=== PATIENT | male | born 1945 | race Caucasian/White ===

== ENCOUNTER → 2017-10-01 | Outpatient (CLI) | payer MEDICARE ==
[2017-10-01 12:02] LABS: Anion Gap 5 mmol/L; Blood Urea Nitrogen 29 mg/dL (9-20); Carbon Dioxide 30 mmol/L (22-30); Chloride 104 mmol/L (98-107); Non-African American GFR(MDRD) >60 (>60 ml/min/1.73 sqM); Potassium 5.3 mmol/L (3.5-5.1); Sodium 139 mmol/L (137-145)
[2017-10-01 12:52] LABS: CH 30.7; CHCM 32.7; HCT 44.6 % (39.0-53.0); HDW 3.14; HGB 14.7 gm/dL (13.0-17.5); MCH 31.2 pg (25.0-35.0); MCV 94.4 fL (80.0-100.0); Mean Platelet Volume 7.2; RBC 4.72 m/uL (4.30-5.90); WBC 7.2 k/uL (3.8-10.6)
== END | disposition home or self-care (01) ==
LOC: LABPAT 11:14
PROVIDERS: ATTEND Internal Medicine Interventional Cardiology
DX: Z01.812 Encounter for preprocedural laboratory examination (principal); I35.0 Nonrheumatic aortic (valve) stenosis
CPT/HCPCS: 36415; 80051; 82565; 84520; 85027

== ENCOUNTER 2017-10-08 06:27 | Day surgery (SDC) | payer MEDICARE ==
[2017-09-26 14:38] VITALS: BMI 28.7
[~2017-10-08 06:27] MED LIST: ALPRAZolam 0.25 MG TAB PO PRN; ALPRAZolam 0.5 MG TAB PO PRN; ASPIRIN 325 MG TAB PO STA; ATORVASTATIN 80 MG TAB PO STA; NITROGLYCERIN SL TABS 0.4 MG TAB SUBLINGUAL PRN; SODIUM CHLORIDE 0.9% 1,000 ML in EMPTY BAG 1 BAG IV ONE
[2017-10-08] MEDS ORDERED: MIDAZOLAM 2 MG/2 ML VIAL ONE (07:29)
[2017-10-08] MEDS ORDERED: diphenhydrAMINE 50 MG/ML 1 ML VIAL ONE (07:29)
[2017-10-08] MEDS ORDERED: ASPIRIN 81 MG PO ONE (07:38)
[2017-10-08] MEDS ORDERED: ASPIRIN 81 MG ONE (07:40)
[2017-10-08] MEDS ORDERED: diphenhydrAMINE 50 MG/ML 1 ML VIAL IVP ONE (07:40)
[2017-10-08] MEDS: MIDAZOLAM 2 MG/2 ML VIAL IVP ONE ×2 (07:40→07:54)
[2017-10-08] MEDS ORDERED: LIDOCAINE 2% INJ 20 MG/ML SQ ONE (07:48)
[2017-10-08] MEDS ORDERED: NITROGLYCERIN SL TABS 0.4 MG TAB SUBLINGUAL ONE ×2 (08:06→08:10)
[2017-10-08 08:14] LABS: O2 Sat Blood Gas 63.2 %
[2017-10-08 08:16] LABS: O2 Sat Blood Gas 70.4 %
[2017-10-08 08:19] LABS: O2 Sat Blood Gas 93.2 %
[2017-10-08] MEDS ORDERED: IOHEXOL 350 MG/ML (PER ML) 100ML BTL INJ ONE (08:28)
[2017-10-08] MEDS ORDERED: SODIUM CHLORIDE 0.9% 1,000 ML IV SCH (09:00)
[2017-10-08] MEDS ORDERED: NITROGLYCERIN SL TABS 0.4 MG TAB SUBLINGUAL STA (10:04)
--- NOTE | 2017-10-08 10:52 | CC ---
CARDIAC CATHETERIZATION REPORT DATE OF SERVICE: 10/08/2017. PROCEDURE: Right and left heart catheterization and coronary angiography. PERFORMED BY: Dr. Ervin Merritt. CLINICAL INFORMATION: Mr. Antonio Alex is a 72-year-old gentleman with history of hypertension, hyperlipidemia, and aortic stenosis with increasing shortness of breath and worsening gradient noninvasively with a mean gradient of 37 mm mmHg. He was advised coronary angiography. He had a previous cardiac cath and WILBER in 2013, which revealed that the valve area was about nearly 2.0 and did not have significant disease of the right- dominant system. Because of increasing symptoms and objective evidence of increased gradient, he was advised coronary angiography and a WILBER and possibly to cross aortic valve if he could. PROCEDURE NOTE: Under local anesthesia and strict aseptic precautions, a 6-Israeli introducer was placed in the right femoral artery. An 8-Israeli introducer in the right femoral vein. Using a standard balloon tipped catheter, I performed right heart catheterization. Catheter was left in the pulmonary artery. I obtained saturations, hemodynamics and also performed a thermodilution cardiac output. I then performed coronary angiography using standard Chana catheters. I made an attempt to cross the aortic valve with a pigtail catheter but I could not. The sheath was taken out and Angio-Seal device used to secure hemostasis. The venous sheath was taken out and manual compression. The patient was sent to the room in a stable condition. He will have transesophageal echo later on today around noontime. CARDIAC CATHETERIZATION FINDINGS: 1. Right coronary artery: Technically a very dominant vessel has no significant disease and distally bifurcates into a large PDA and a larger PLV and PDA, both of which supply a sizable amount of myocardium. There is no significant disease in the dominant RCA or its branches. 2. Left main coronary artery: Short patent disease-free vessel that bifurcates into LAD and circumflex. Left main itself is free of significant disease. 3. Left anterior descending coronary artery: Good caliber vessel extends along the anterior wall gives off a good-sized septal branch proximally and then 2 small diagonal branches. The second diagonal is actually of fair caliber and distribution. The vessel then runs down all the way to the apex supplying a sizable amount of myocardium. The entire LAD is of a good caliber and good distribution, has minor irregularities but no significant disease is noted. 4. Left posterior circumflex coronary artery: Technically a nondominant vessel that runs laterally, gives off 2 obtuse marginal branches, supplies a fair amount of myocardium. There is no significant disease in the nondominant circumflex system. 5. Left ventriculogram. This was not performed. I could not cross the aortic valve. 6. Right heart catheterization findings: Right atrial pressure was 3 mmHg. Right ventricular pressure was 44/3, the pulmonary arterial pressure was 44/17 with a mean of 27. Pulmonary capillary wedge pressure was 16 mmHg. The thermodilution cardiac output was 5.4 L. The Dom cardiac output was 5.5 L. The PA saturation was 70% and FA saturation was 93%. The RA saturation was 63%. This patient has mild pulmonary hypertension with a normal cardiac output and mildly increased wedge pressure. FINAL IMPRESSION: This patient has mild pulmonary hypertension, normal cardiac output. Aortic valve was not crossed. He has no obstructive CAD. He has a right dominant system and compared to the study from 2014, there is no progression of coronary disease. RECOMMENDATIONS: I will await the results of the transesophageal echo before making recommendations. Patient's PA pressures are slightly increased, but his coronary anatomy has not changed. He has a right dominant system without significant obstructive CAD. Findings were discussed with the patient and and he will be discharged after WILBER and I will see him on Saturday as per his appointment. MMODL / IJN: [id number] /
--- NOTE | 2017-10-08 10:52 | LTR ---
DATE OF SERVICE: 10/08/[address] Manzano: Thank you for the opportunity to partake in the care of Mr. Alex. Please find enclosed my cardiac cath report for your records. As you recall, the gentleman has hypertension, hypercholesterolemia and moderate to severe aortic stenosis. Cardiac cath reveals no significant obstructive coronary artery disease. Filling pressures are slightly elevated. We will check the WILBER and then make further recommendations. Thank you for your referral and please call for questions. With kind personal regards, Sincerely, Moderate conscious sedation time was 48 minutes. MMODL / IJN: [id number] /
[2017-10-08] MEDS ORDERED: IV FLUID CONTINUATION 500 ML IV ONE (11:32)
[2017-10-08] MEDS: BENZOCAINE SPRAY 1 CAN MUCOUS MEM ONE ×3 (11:38→13:23)
[2017-10-08] MEDS ORDERED: fentaNYL (PF) 50 MCG/ML 2 ML AMP IVP ONE (13:20)
[2017-10-08] MEDS ORDERED: MIDAZOLAM 2 MG/2 ML VIAL IVP ONE (13:21)
--- NOTE | 2017-10-08 14:43 | ECHOT ---
TRANSESOPHAGEAL ECHOCARDIOGRAM Mr. Alex is a 72-year-old gentleman who underwent a transesophageal echocardiogram to assess aortic stenosis. Patient was given intravenous sedation with Versed and fentanyl and transesophageal echocardiogram was performed without any complications. Left ventricular chamber is normal in size with moderate degree of left ventricular hypertrophy and normal left ventricular systolic function. The mitral valve morphology is normal. Left atrium is mildly enlarged. Left atrial appendage is normal. There is minimal mitral regurgitation noted. Aortic valve is heavily calcified. Aortic valve area is calculated in the range of 1.4 to 1.5 cm2 suggestive of moderate degree of aortic stenosis. No significant aortic regurgitation is noted. Interatrial septum is intact. There is no evidence of any PFO. Descending thoracic aorta is normal. FINAL IMPRESSION: 1. The aortic valve is heavily calcified but aortic wall area is calculated in the range of 1.4 to 1.5 cm2 suggestive of moderate degree of aortic stenosis. No significant aortic regurgitation is noted. 2. Mitral and tricuspid valve morphology is normal. There is a trace mitral regurgitation noted. Left atrium is mildly enlarged. 3. Interatrial septum is intact. There is no evidence of any patent foramen ovale. 4. Descending thoracic aorta was normal. MMODL / IJN: [id number] /
[2017-10-09 22:55] VITALS: BP 174/76; PULSE 53; RESP 18; TEMP 97.9
== END 2017-10-08 15:01 | disposition home or self-care (01) ==
LOC: CATHCVL 06:27
PROVIDERS: ATTEND Internal Medicine Interventional Cardiology
DX: I27.20 Pulmonary hypertension, unspecified (principal); I08.0 Rheumatic disorders of both mitral and aortic valves; I10 Essential (primary) hypertension; E78.00 Pure hypercholesterolemia, unspecified; Z82.49 Family history of ischemic heart disease and other diseases of the circulatory system; D86.9 Sarcoidosis, unspecified; Z79.82 Long term (current) use of aspirin; Z79.51 Long term (current) use of inhaled steroids; Z79.899 Other long term (current) drug therapy; Z87.891 Personal history of nicotine dependence; Z88.6 Allergy status to analgesic agent; Z88.1 Allergy status to other antibiotic agents; Z88.0 Allergy status to penicillin
CPT/HCPCS: 93312; 93320; 93325; 93456; 85018; 82810; C1760; C1894 ×2; C1769 ×2; J2001; J2250; J1200; Q9967; J3010

== ENCOUNTER → 2017-10-28 | Outpatient (CLI) | payer MEDICARE ==
[2017-10-28 10:39] LABS: Basophils # (A) 0.1 k/uL (0-0.2); Basophils % (A) 1 %; Eosinophils # (A) 0.2 k/uL (0-0.7); Eosinophils % (A) 3 %; HCT 49.2 % (39.0-53.0); Lymphocytes # (A) 1.6 k/uL (1.0-4.8); Lymphocytes % (A) 23 %; MCH 29.9 pg (25.0-35.0); MCHC 32.6 g/dL (31.0-37.0); MCV 91.6 fL (80.0-100.0); Mean Platelet Volume 6.9; Monocytes # (A) 0.5 k/uL (0-1.0); Monocytes % (A) 7 %; Neutrophils # (A) 4.2 k/uL (1.3-7.7); Neutrophils % (A) 64 %; Platelet Count 207 k/uL (150-450); RBC 5.37 m/uL (4.30-5.90); RDW 13.8 % (11.5-15.5); WBC 6.6 k/uL (3.8-10.6)
[2017-10-28 10:51] LABS: ALT 40 U/L (21-72); AST 19 U/L (17-59); Anion Gap 7 mmol/L; Blood Urea Nitrogen 24 mg/dL (9-20); Calcium 10.6 mg/dL (8.4-10.2); Carbon Dioxide 33 mmol/L (22-30); Chloride 103 mmol/L (98-107); Cholesterol 152 mg/dL (<200); Glucose 109 mg/dL (74-99); HDL Cholesterol 52 mg/dL (40-60); LDL Cholesterol,Calculated 73 mg/dL (0-99); Potassium 4.9 mmol/L (3.5-5.1); Sodium 143 mmol/L (137-145); Triglycerides 137 mg/dL (<150)
[2017-10-28 11:06] LABS: T4, Free (Free Thyroxine) 1.12 ng/dL (0.78-2.19)
[2017-10-28 11:20] LABS: PSA Annual Screen 1.29 ng/mL (0.00-4.00)
== END | disposition home or self-care (01) ==
LOC: LABWHC1 10:03
PROVIDERS: ATTEND Internal Medicine Interventional Cardiology
DX: E78.5 Hyperlipidemia, unspecified (principal); I10 Essential (primary) hypertension; Z12.5 Encounter for screening for malignant neoplasm of prostate
CPT/HCPCS: 84439; 80061; 80048; 84443; 84450; 84460; 85025; 36415; G0103

== ENCOUNTER → 2018-11-21 | Outpatient (CLI) | payer MEDICARE ==
--- NOTE | 2018-11-21 15:34 | XR ---
Left hip HISTORY: Left hip pain 2 views of the left hip No comparisons There is mild joint space loss. Alignment and bone mineralization are maintained. No fracture or disl ocation. IMPRESSION: Suspect some mild joint space loss, hip MRI may be of benefit.
== END | disposition home or self-care (01) ==
LOC: RADXRMAIN 13:15
PROVIDERS: ATTEND Family Medicine
DX: M25.552 Pain in left hip (principal)
CPT/HCPCS: 73502

== ENCOUNTER 2018-12-09 07:21 | Day surgery (SDC) | payer MEDICARE ==
[2018-12-04 16:11] VITALS: BMI 30.9
[~2018-12-09 07:21] MED LIST changes: -ALPRAZolam 0.25 MG TAB PO PRN; -ALPRAZolam 0.5 MG TAB PO PRN; -ASPIRIN 325 MG TAB PO STA; -ATORVASTATIN 80 MG TAB PO STA; +LACTATED RINGERS 1,000 ML IV SCH; +LIDOCAINE 1% 20 ML VIAL (10MG/ML) FOR IV START INTRADERMA PRN; -NITROGLYCERIN SL TABS 0.4 MG TAB SUBLINGUAL PRN; -SODIUM CHLORIDE 0.9% 1,000 ML in EMPTY BAG 1 BAG IV ONE
[2018-12-09 07:39] VITALS: TEMP 96.5
[2018-12-09] MEDS ORDERED: LIDOCAINE 1% INJ 10MG/ML (20 ML MDV) ONE (08:24)
[2018-12-09] MEDS ORDERED: PROPOFOL 10 MG/ML 20 ML VIAL IV ONE (08:24)
--- NOTE | 2018-12-09 09:05 | P.PCN ---
Date of Procedure: 12/09/18 Procedure(s) Performed: Procedure: Colonoscopy and polypectomy. Preoperative diagnosis: Screening for neoplasia. Postoperative diagnosis: 1. Diverticulosis with no evidence of acute diverticulitis or strictures. 2. Small sigmoid polyp snared but no large polyps or cancer. Preparation: HalfLytely prep. Sedation: Was provided by anesthesia. Brief clinical history: The patient is 73-year-old male who is scheduled for this evaluation for screening for neoplasia because of history of polyps and family history of colon cancer in his mother and her half brother. The patient has no abdominal complaints, bleeding or anemia. He reports intermittent issues with diarrhea and constipation. His last exam was in 2016. Procedure: With the patient on his left lateral decubitus position and after informed consent and adequate sedation, the perianal area was inspected and it did not show any fissures or fistulas. There were no masses felt on digital rectal examination. The Olympus CFQ 160L video colonoscope was then inserted in the rectum in the usual fashion and advanced to the cecum. The preparation was less than ideal as there was some thick fecal secretions and fecal debris that would not wash off totally. There was a small polyp in the sigmoid which was snared and retrieved by suction, but there were no large polyps or cancer. Multiple diverticular orifices were seen scattered mostly on the left side with some on the right side and around the hepatic flexure but with no evidence of acute diverticulitis or strictures. In the retroflex view in the rectum I noted low-grade internal hemorrhoids but those were not bleeding. Disposition: The patient tolerated the procedure well. Plan: The patient was reassured. Discussed dietary measures. I anticipate repeating this exam in 3-5 years. He will follow up with you as planned.
[2018-12-09 09:17] VITALS: BP 145/81; PULSE 58; RESP 16
== END 2018-12-09 09:41 | disposition home or self-care (01) ==
LOC: ORWHC2ENDO 07:21
DX: Z12.11 Encounter for screening for malignant neoplasm of colon (principal); K57.30 Diverticulosis of large intestine without perforation or abscess without bleeding; D12.5 Benign neoplasm of sigmoid colon; K59.00 Constipation, unspecified; K64.8 Other hemorrhoids; Z80.0 Family history of malignant neoplasm of digestive organs
CPT/HCPCS: 88305; 45385; J2001; J2704

== ENCOUNTER → 2019-12-14 | Outpatient (CLI) | payer MEDICARE ==
[2019-12-14 10:38] LABS: HCT 46.2 % (39.0-53.0); HGB 15.4 gm/dL (13.0-17.5); MCH 30.7 pg (25.0-35.0); MCHC 33.3 g/dL (31.0-37.0); MCV 92.4 fL (80.0-100.0); Mean Platelet Volume 7.7; Platelet Count 237 k/uL (150-450); RDW 14.5 % (11.5-15.5); WBC 10.4 k/uL (3.8-10.6)
[2019-12-14 10:43] LABS: Potassium 4.9 mmol/L (3.5-5.1)
== END ==
LOC: LABPAT 09:17
PROVIDERS: ATTEND Internal Medicine Interventional Cardiology
DX: Z01.818 Encounter for other preprocedural examination (principal); I35.0 Nonrheumatic aortic (valve) stenosis
CPT/HCPCS: 36415; 80051; 82565; 84520; 85027

== ENCOUNTER 2019-12-24 06:49 | Day surgery (SDC) | payer MEDICARE ==
[2019-12-22 14:52] VITALS: BMI 31.2
[~2019-12-24 06:49] MED LIST changes: +ALPRAZolam 0.25 MG TAB PO PRN; +ALPRAZolam 0.5 MG TAB PO PRN; -LACTATED RINGERS 1,000 ML IV SCH; -LIDOCAINE 1% 20 ML VIAL (10MG/ML) FOR IV START INTRADERMA PRN; +NITROGLYCERIN SL TABS 0.4 MG TAB SUBLINGUAL PRN; +SODIUM CHLORIDE 0.9% 1,000 ML in EMPTY BAG 1 BAG IV ONE
[2019-12-24] MEDS ORDERED: ASPIRIN 325 MG TAB PO ONE (07:00)
[2019-12-24] MEDS ORDERED: ATORVASTATIN 80 MG TAB PO ONE (07:00)
[2019-12-24] MEDS ORDERED: SODIUM CHLORIDE 0.9% 1,000 ML IV ONE (07:15)
[2019-12-24 07:40] VITALS: TEMP 98.5
[2019-12-24] MEDS ORDERED: LIDOCAINE 1% INJ 10MG/ML (20 ML MDV) ONE ×2 (07:40→08:33)
[2019-12-24] MEDS ORDERED: HEPARIN SODIUM 1,000 UN/ML (10ML VL) ONE (07:41)
[2019-12-24] MEDS ORDERED: VERAPAMIL 2.5 MG/ML 2 ML AMP ONE (07:41)
[2019-12-24] MEDS ORDERED: amLODIPine 5 MG TAB PO STA (07:48)
[2019-12-24] MEDS ORDERED: NITROGLYCERIN SL TABS 0.4 MG TAB SUBLINGUAL STA (07:49)
[2019-12-24] MEDS ORDERED: amLODIPine 5 MG TAB ONE (07:49)
[2019-12-24] MEDS: MIDAZOLAM 2 MG/2 ML VIAL IV ONE ×2 (07:54→08:07)
[2019-12-24] MEDS ORDERED: amLODIPine 5 MG TAB PO ONE (07:54)
[2019-12-24] MEDS ORDERED: LIDOCAINE 1% INJ 10MG/ML (20 ML MDV) SQ ONE ×4 (08:06→08:35)
[2019-12-24] MEDS: VERAPAMIL SYRINGE (5 MG/10 ML) INTRAARTER ONE ×2 (08:09→08:51)
[2019-12-24] MEDS ORDERED: VERAPAMIL SYRINGE (5 MG/10 ML) INTRAARTER ONE (08:12)
[2019-12-24] MEDS ORDERED: NITROGLYCERIN SL TABS 0.4 MG TAB SUBLINGUAL ONE ×2 (08:17→08:19)
[2019-12-24] MEDS ORDERED: IOPAMIDOL-370 125ML BTL INJ ONE (08:51)
[2019-12-24] MEDS ORDERED: SODIUM CHLORIDE 0.9% 1,000 ML IV SCH (09:00)
--- NOTE | 2019-12-24 09:28 | CC ---
CARDIAC CATHETERIZATION REPORT DATE OF SERVICE: December 24, 2019. PROCEDURE: Coronary angiography. Moderate conscious sedation time was 47 minutes. Patient was administered Versed. Oxygen saturation, hemodynamics and EKG were monitored closely. PERFORMED BY: Dr. Ervin Merritt. CLINICAL INFORMATION: Mr. Alex is a 74-year-old gentleman, history of sarcoidosis, bronchial asthma COPD, past history of smoking who also has moderate to severe aortic stenosis with progressive increase in symptoms of chest pain and shortness of breath with activity. He was advised coronary angiography with the understanding that if aortic valve is severe, he may require a valve replacement. He was scheduled to have a coronary angiography and WILBER today brought in for the procedure electively after due discussion regarding risks, benefits, and options. PROCEDURE NOTE: Under local anesthesia and strict aseptic precautions, a 6-Guyanese introducer was placed in the right radial artery. I was able to place a 6-Guyanese sheath. Multiple attempts were used because of difficulty in advancing the wire. However, I advanced a Glidewire and there was a lot of tortuosity in the axillary and brachial artery area. After gaining access into the ascending aorta with a Glidewire, I switched over to a regular wire with a right Chana catheter. I had absolutely no ability to torque the right catheter because of extreme tortuosity. However, I had a subselective injection of the RCA. I could not advance the left catheter because of extreme tortuosity in the brachiocephalic artery. Therefore I switched over to the femoral approach. Under strict aseptic precautions and local anesthesia, a 6-Guyanese introducer was placed in the right femoral artery. Using standard Chana catheters I performed coronary angiography. I did not make any serious attempt to cross the aortic valve. The sheath was taken out and Angio-Seal device used to secure hemostasis. The radial sheath was taken out and a TR band applied as per protocol. Saturation of the fingers of the right hand was 92%. The patient tolerated the procedure well without complication. He was sent to the room in stable condition. Findings were discussed with the patient and family. CORONARY ANGIOGRAPHY FINDINGS: RIGHT CORONARY ARTERY: This is a technically a very dominant vessel has no significant disease, has minor irregularities. It bifurcates distally into a large PDA and PLV, both of which supply a sizable amount of myocardium. No significant disease is noted in the right coronary artery, which is a super dominant vessel. LEFT MAIN CORONARY ARTERY: This is a short patent disease-free vessel that bifurcates into LAD and circumflex. LEFT ANTERIOR DESCENDING CORONARY ARTERY: Good caliber vessel extends along the anterior wall, gives off septal and diagonal branches runs all the way to the apex. No significant disease is noted in the LAD system. LEFT POSTERIOR CIRCUMFLEX CORONARY ARTERY: Nondominant vessel, fair caliber, gives off 2 large obtuse marginals and then an AV groove branch. There are minor irregularities. No significant disease. FINAL IMPRESSION: This patient has a right dominant system. No significant obstructive coronary artery disease. Left ventriculogram was not performed and aortic valve was not crossed. He will have a WILBER and we will then make a definitive recommendation. RECOMMENDATIONS: No significant CAD. We will await the results of WILBER and then decide regarding aortic valve replacement. Discussed with the patient and . I expect he will be discharged later on today if he remains stable. MMODL / IJN: [id number] /
[2019-12-24] MEDS ORDERED: fentaNYL (PF) 50 MCG/ML 2 ML AMP ONE (11:28)
[2019-12-24] MEDS: BENZOCAINE SPRAY 1 CAN TOPICAL ONE ×2 (11:35→11:40)
[2019-12-24] MEDS ORDERED: IV FLUID CONTINUATION 900 ML IV ONE (11:40)
[2019-12-24] MEDS ORDERED: MIDAZOLAM 2 MG/2 ML VIAL IV ONE ×2 (11:55→11:58)
[2019-12-24] MEDS ORDERED: fentaNYL (PF) 50 MCG/ML 2 ML AMP IV ONE (11:56)
--- NOTE | 2019-12-24 12:41 | ECHOT ---
TRANSESOPHAGEAL ECHOCARDIOGRAM This transesophageal echocardiogram was performed to assess the aortic stenosis. The patient was given intravenous sedation with Versed and fentanyl and transesophageal echocardiogram was performed without any complications. FINDINGS: The left ventricular chamber is normal in size with [id number] degree of left ventricular hypertrophy and normal left ventricular systolic functions. Left atrium is mildly enlarged. Mitral valve morphology is normal. Mild mitral regurgitation is noted. There is no evidence of thrombus in the left atrial appendage. The aortic valve is sclerotic and calcified. It is probably bicuspid and it was difficult to calculate the aortic valve area by planimetry. In the long-axis view, the excursion of the aortic leaflets is significantly reduced and the valve is calcified. There is a moderate degree of aortic regurgitation. Interatrial septum is intact. The descending thoracic aorta shows mild atherosclerotic plaque. FINAL IMPRESSION: 1. The aortic valve is heavily calcified and sclerotic. It is probably bicuspid. It was difficult to calculate the aortic valve area in 60 degree view. In the long- axis view, the excursion of the aortic leaflets is significantly reduced suggestive of severe aortic stenosis. A mean gradient of 40 mmHg was noted by transthoracic echo again suggestive of severe aortic stenosis. There is a moderate degree of aortic regurgitation noted. 2. Left ventricular systolic function is normal. 3. Mild mitral regurgitation is noted. 4. Interatrial septum is intact. 5. There is no evidence of any patent foramen ovale. 6. There is no evidence of thrombus in left atrial appendage. MMODL / IJN: [id number] /
[2019-12-24 14:37] VITALS: RESP 16
[2019-12-24 15:28] VITALS: BP 165/79; PULSE 60
== END 2019-12-24 15:05 | disposition home or self-care (01) ==
LOC: CATHCVL 06:49
PROVIDERS: ATTEND Internal Medicine Interventional Cardiology
DX: I08.0 Rheumatic disorders of both mitral and aortic valves (principal); I77.1 Stricture of artery; R07.9 Chest pain, unspecified; R06.02 Shortness of breath; I10 Essential (primary) hypertension; E78.5 Hyperlipidemia, unspecified; D86.9 Sarcoidosis, unspecified; I49.5 Sick sinus syndrome; J44.9 Chronic obstructive pulmonary disease, unspecified; E78.00 Pure hypercholesterolemia, unspecified; Z87.891 Personal history of nicotine dependence; Z82.49 Family history of ischemic heart disease and other diseases of the circulatory system; Z79.82 Long term (current) use of aspirin; Z79.51 Long term (current) use of inhaled steroids; Z79.899 Other long term (current) drug therapy; Z88.6 Allergy status to analgesic agent; Z88.1 Allergy status to other antibiotic agents; Z88.0 Allergy status to penicillin
CPT/HCPCS: 93312; 93454; C1760; C1769 ×4; C1894 ×2; J2250; J2001; J3010; J1644; Q9967; 93320; 93325

== ENCOUNTER → 2020-02-03 | Outpatient (CLI) | payer MEDICARE ==
[2020-02-03 11:58] LABS: HCT 47.4 % (39.0-53.0); HGB 15.5 gm/dL (13.0-17.5); MCH 30.9 pg (25.0-35.0); MCHC 32.6 g/dL (31.0-37.0); MCV 94.8 fL (80.0-100.0); Mean Platelet Volume 7.4; Platelet Count 186 k/uL (150-450); RDW 14.2 % (11.5-15.5); WBC 7.7 k/uL (3.8-10.6)
[2020-02-03 12:01] LABS: Prothrombin Time 10.1 sec (9.0-12.0)
[2020-02-03 18:40] LABS: African American GFR (CKD) 67.7 (60.0-200.0); Albumin/Globulin Ratio 2.22 (1.60-3.17); Anion Gap 8.4 mmol/L (4.00-12.00); BUN/Creat Ratio 23.33 Ratio (12.00-20.00); Calcium 10.5 mg/dL (8.7-10.3); Carbon Dioxide 32.6 mmol/L (21.6-31.8); Globulin 1.8 g/dL (1.6-3.3); Magnesium 2.1 mg/dL (1.5-2.4); Non-African American GFR(CKD) 58.4 (60.0-200.0); Potassium 4.8 mmol/L (3.5-5.5); Total Bilirubin 0.8 mg/dL (0.3-1.2); Total Protein 5.8 g/dL (6.2-8.2)
== END | disposition home or self-care (01) ==
LOC: LABWHC1 10:32
PROVIDERS: ATTEND Internal Medicine Interventional Cardiology
DX: I35.0 Nonrheumatic aortic (valve) stenosis (principal); I51.9 Heart disease, unspecified
CPT/HCPCS: 36415; 80053; 83735; 83880; 85027; 85610

== ENCOUNTER → 2021-10-03 | Outpatient (CLI) | payer MEDICARE ==
--- NOTE | 2021-10-03 14:10 | XR ---
EXAMINATION TYPE: XR chest 2V DATE OF EXAM: 10/03/2021 COMPARISON: 05/20/2014 HISTORY: Shortness of breath TECHNIQUE: Frontal and lateral views of the chest are obtained. FINDINGS: Scattered senescent parenchymal changes noted. Hyperinflation compatible with COPD. Increased perihilar and basilar interstitial markings could reflect atypical pneumonia. Correlate cli nically. No evidence for atelectasis. Heart size is stable. Mediastinal structures are stable and grossly unremarkable. No evidence for hilar prominence. Degenerative changes dorsal spine. IMPRESSION: 1. Increased perihilar and basilar interstitial markings could reflect atypical pneumonia. Correlate clinically.
== END | disposition home or self-care (01) ==
LOC: RADXRMAIN 13:49
PROVIDERS: ATTEND Family Medicine
DX: R06.02 Shortness of breath (principal)
CPT/HCPCS: 71046

== ENCOUNTER → 2021-10-16 | Outpatient (CLI) | payer MEDICARE | END | disposition home or self-care (01) | LOC: LABWHC1 11:54 | PROVIDERS: ATTEND Family Medicine | DX: Z20.822 Contact with and (suspected) exposure to COVID-19 (principal); R06.00 Dyspnea, unspecified | CPT/HCPCS: U0003; C9803 ==

== ENCOUNTER → 2021-12-08 | Outpatient (CLI) | payer MEDICARE ==
--- NOTE | 2021-12-08 18:33 | CT ---
EXAMINATION TYPE: CT abdomen pelvis w con DATE OF EXAM: 12/08/2021 COMPARISON: Ultrasound dated 10/24/2021 HISTORY: H/O RENAL CYST CT DLP: 1814 mGycm Automated exposure control for dose reduction was used. TECHNIQUE: Helical acquisition of images was performed from the lung bases through the pelvis. CONTRAST: Performed with Oral Contrast and with IV Contrast, patient injected with 80 mL of Isovue 300. FINDINGS: LUNG BASES: Bilateral basal mild fibrotic changes, groundglass opacities and peripheral reticulations . LIVER/GB: No definite hepatic focal lesion. Previous cholecystectomy. PANCREAS: 7 mm pancreatic head hypodensity, possibly artifactual, otherwise unremarkable pancreas. SPLEEN: No significant abnormality is seen. ADRENALS: Diffusely thickened adrenals without definite measurable lesion. KIDNEYS: 8 mm left lower pole cortical renal cyst demonstrating a density of less than 5 Hounsfield u nit in the venous and delayed images consistent with benign cyst. No solid component, calcification o r suspicious feature. Millimetric right renal hypodensities, too small to characterize and possibly r epresenting renal cysts. Questionable 2 mm nonobstructing calculus at the lower pole of the right kid mik. Unremarkable kidneys otherwise. FREE AIR: No free air is visualized. ADENOPATHY: 10 mm lymph node is seen in the gastrohepatic ligament, nonspecific. Scattered bilateral subcentimeter inguinal lymph nodes. No pathologically enlarged lymph nodes in the abdomen or the pel vis otherwise. REPRODUCTIVE ORGANS: Enlarged heterogeneous prostate, please correlate with PSA level. Unremarkable s eminal vesicles. URINARY BLADDER: Distended without definite lesion. OSSEOUS STRUCTURES: Osteopenia. Dextroscoliosis of the thoracolumbar junction. Severe degenerative c hanges of the lower lumbar spine with facet osteoarthropathy. No aggressive bone lesion. BOWEL: Unremarkable nondistended stomach, duodenum and small bowel. Colonic diverticulosis most evid ent involving the sigmoid colon and descending colon. OTHER: Scattered arterial atherosclerotic calcifications. No sizable ascites. Bilateral fat-containin g small inguinal hernias. Fat-containing umbilical hernia with overlying midline anterior abdominal w all skin thickening and subcutaneous fat stranding, please correlate clinically. IMPRESSION: 1. Simple appearing cyst at the lower pole of the left kidney without suspicious feature. Questionabl e 2 mm nonobstructing calculus at the lower pole of the right kidney. 2. Indeterminate hypodensity in the pancreatic head measuring 7 mm. Recommend precautionary follow-up CT scan in 2-3 months for reassessment. 3. Markedly enlarged heterogeneous prostate, please correlate with PSA level. Other incidental findin gs as detailed above.
== END | disposition home or self-care (01) ==
LOC: RADCTMAIN 13:19
PROVIDERS: ATTEND Family Medicine
DX: N28.1 Cyst of kidney, acquired (principal); N40.0 Benign prostatic hyperplasia without lower urinary tract symptoms
CPT/HCPCS: 82565; 84520; 74177; 36415; Q9967

== ENCOUNTER → 2022-01-15 | Outpatient (CLI) | payer MEDICARE ==
[2022-01-15 13:02] LABS: Appearance,Urine Clear (Clear); Bilirubin,Urine Negative (Negative); Blood,Urine Negative (Negative); Color,Urine Yellow; Glucose,Urine (UA) Negative (Negative); Hyaline Casts,Urine 1 /lpf (0-2); Ketones,Urine Negative (Negative); Leukocyte Esterase,Urine Negative (Negative); Nitrite,Urine Negative (Negative); PH, Urine 6.5 (5.0-8.0); Protein,Urine 1+ (Negative); Specific Gravity,Urine 1.008 (1.001-1.035); Urobilinogen,Urine <2.0 mg/dL (<2.0); WBC,Urine 1 /hpf (0-5)
[2022-01-15 18:24] LABS: HCT 49.8 % (39.6-50.0); HGB 15.5 g/dL (13.0-17.0); MCH 29.6 pg (27.0-32.0); MCHC 31.1 g/dL (32.0-37.0); NRBC Per 100 WBC 0 /100 WBCS (0.0-0.0); Platelet Count 210 X 10*3/uL (140-440); RBC 5.24 X 10*6/uL (4.40-5.60); RDW 14.2 % (11.5-14.5); WBC 10.03 X 10*3/uL (4.50-10.00)
[2022-01-15 18:37] LABS: % Iron Saturation 18.79 (15.00-50.00); African American GFR (CKD) 66.1 (60.0-200.0); Albumin 4.2 g/dL (3.8-4.9); Albumin/Globulin Ratio 2.08 (1.60-3.17); Anion Gap 12.7 mmol/L (10.00-18.00); BUN/Creat Ratio 17.44 Ratio (12.00-20.00); Blood Urea Nitrogen 21.1 mg/dL (9.0-27.0); Calcium 10.8 mg/dL (8.7-10.3); Carbon Dioxide 27.3 mmol/L (20.0-27.5); Magnesium 2.4 mg/dL (1.5-2.4); Phosphorus 3.4 mg/dL (2.4-5.1); Total Bilirubin 0.5 mg/dL (0.30-1.20); Total Protein 6.2 g/dL (6.2-8.2); Uric Acid 6.6 mg/dL (3.7-8.7)
[2022-01-15 18:58] LABS: Prostate Specific Antigen 1.3 ng/mL (0.00-6.50)
== END | disposition home or self-care (01) ==
LOC: LABWHC1 10:03
PROVIDERS: ATTEND Internal Medicine
DX: D64.9 Anemia, unspecified (principal); E21.3 Hyperparathyroidism, unspecified; E55.9 Vitamin D deficiency, unspecified; N18.31 Chronic kidney disease, stage 3a; N39.0 Urinary tract infection, site not specified; M10.9 Gout, unspecified; N40.0 Benign prostatic hyperplasia without lower urinary tract symptoms
CPT/HCPCS: 36415; 80053; 81001; 82306; 82728; 83540; 83550; 83735; 83970; 84100; 84153; 84550; 85027

== ENCOUNTER → 2022-01-23 | Outpatient (CLI) | payer MEDICARE ==
--- NOTE | 2022-01-23 14:07 | XR ---
EXAMINATION TYPE: XR chest 2V DATE OF EXAM: 01/23/2022 COMPARISON: 10/03/2021 TECHNIQUE: PA and lateral views submitted. HISTORY: Hemoptysis FINDINGS: Cardiac device is seen is a coarsened interstitium with subsegmental changes at the left lung base. S urgical change overlying the lower heart. Biapical pleural thickening. Hypertrophic and degenerative change of the spine. Suspect COPD. Prominence of the right hilum and suprahilar region. IMPRESSION: 1. COPD correlate for chronic interstitial lung disease. Prominence of the right hilum and suprahilar region. Recommend CT scan exclude mass or adenopathy 2. Basilar atelectasis favored over pneumonia.
== END | disposition home or self-care (01) ==
LOC: RADXRMAIN 13:45
PROVIDERS: ATTEND Internal Medicine
DX: J44.9 Chronic obstructive pulmonary disease, unspecified (principal)
CPT/HCPCS: 71046

== ENCOUNTER → 2022-02-02 | Outpatient (CLI) | payer MEDICARE ==
--- NOTE | 2022-02-02 16:16 | NM ---
EXAMINATION TYPE: NM parathyroid w/spect DATE OF EXAM: 02/02/2022 COMPARISON: NONE HISTORY: Hypercalcemia and kidney stones, E 83.52 TECHNIQUE: Following administration of 26.1 mCi Tc99m Sestamibi. Anterior projection images of the neck and ches t were obtained 10 minutes and 3 hours post injection. SPECT images of the neck and chest were obtai delvin and reconstructed in three axes. FINDINGS: Thyroid tracer washout: Delayed images demonstrate near-complete tracer washout from the thyroid. Parathyroid uptake: None. The two-hour delayed images do not demonstrate any focal abnormal persisten t uptake in the region of the parathyroid glands to suggest parathyroid adenoma. Normal uptake: There is physiological tracer uptake in the salivary glands, and thyroid gland. IMPRESSION: Normal parathyroid imaging study. No evidence for mediastinal uptake to suggest mediastinal parathyro id adenoma
== END | disposition home or self-care (01) ==
LOC: RADNMMAIN 10:46
PROVIDERS: ATTEND Internal Medicine
DX: E83.52 Hypercalcemia (principal)
CPT/HCPCS: 78071; A9500

== ENCOUNTER → 2022-03-15 | Outpatient (CLI) | payer MEDICARE ==
--- NOTE | 2022-03-15 20:10 | CT ---
EXAMINATION TYPE: CT angio chest w con, with no 3-D reconstructions DATE OF EXAM: 03/15/2022 COMPARISON: NONE HISTORY: ABNORMAL BLOOD-GAS LEVEL. SOB and cough up blood CT DLP: 619.30 mGycm. Automated Exposure Control for Dose Reduction was Utilized. CONTRAST: CTA scan of the thorax is performed with IV Contrast, patient injected with 90 mL of Isovue 370. MIP Images are created on CT scanner and reviewed. 3D reconstructed images are created on an User [employer] workstation and reviewed. FINDINGS: AIRWAYS: Unremarkable. PLEURAL SPACES: Negative. LUNGS AND MEDIASTINUM: There is a 6 x 5 x 5 cm right paramidline posterior mediastinal mass with ill- defined margins, associated with 2 cm right anterolateral direct invasion of the T2 vertebral body (n o intraspinal component). This mass abuts and anteriorly displaces the trachea and the esophagus abov e the level of the loretta. The lesion's right lateral margin is ill-defined as it directly invades th e right lung parenchyma. Remainder of the lung shows multifocal bleb formation and scattered nonspecific predominantly linear ill-defined added opacities. There is satisfactory enhancement of the pulmonary artery and its branches; no CT evidence for pulmon nirmala embolism. No acute aortic findings. No cardiomegaly. Coronary calcifications are noted. No perica rdial effusion. OTHER: No additional significant abnormality is seen. 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
== END | disposition home or self-care (01) ==
LOC: RADCTMAIN 17:37
PROVIDERS: ATTEND Family Medicine
DX: R22.2 Localized swelling, mass and lump, trunk (principal); R79.81 Abnormal blood-gas level
CPT/HCPCS: 82565; 84520; 71275; 36415; Q9967

== ENCOUNTER 2022-03-23 05:45 | Day surgery (SDC) | payer MEDICARE ==
[2022-03-21 09:09] VITALS: BMI 29.9
[~2022-03-23 05:45] MED LIST changes: -ALPRAZolam 0.25 MG TAB PO PRN; -ALPRAZolam 0.5 MG TAB PO PRN; +LACTATED RINGERS 1,000 ML IV SCH; +LIDOCAINE 1% (10MG/ML) FOR IV START INTRADERMA PRN; -NITROGLYCERIN SL TABS 0.4 MG TAB SUBLINGUAL PRN; -SODIUM CHLORIDE 0.9% 1,000 ML in EMPTY BAG 1 BAG IV ONE
[2022-03-23 06:39] VITALS: TEMP 98.8
[2022-03-23] MEDS ORDERED: LIDOCAINE 2% INJ 20 MG/ML (2 ML VIAL) ONE (07:06)
[2022-03-23] MEDS ORDERED: PROPOFOL 10 MG/ML 20 ML VIAL IV ONE (07:06)
--- NOTE | 2022-03-23 07:35 | P.PCN ---
Date of Procedure: 03/23/22 Procedure(s) Performed: Brief history: Patient is a pleasant 76-year-old white male scheduled for an elective upper endoscopy as well as colonoscopy as a part of evaluation of GERD/screening for colorectal neoplasia Procedure performed: Esophagogastroduodenoscopy with biopsy Colonoscopy with snare polypectomy Preoperative diagnosis: GERD Screening for colon cancer Anesthesia: MAC Procedure: After informed consent was obtained from the patient was brought into the endoscopy unit and IV sedation was administered by anesthesia under continuous monitoring. Initially upper endoscopy was done. The Olympus GF 160 video endoscope was inserted inserted into the mouth and esophagus intubated without a ny difficulty and was gradually advanced into the stomach and duodenum and carefully examined. The bulb and second part of the duodenum appeared normal. The scope was then withdrawn into the stomach adequately insufflated with air and upon careful examination the antrum had linear EUS of erythema consistent with gastritis. Biopsies were done from this area. The body, cardia and fundus appeared normal. The scope was then withdrawn into the esophagus. The GE junction was located at 45 cm to the incisors. It appeared regular with no erythema erosions or ulcerations. There was a short tongue of Puga's appearing mucosa just proximal to the GE junction which was biopsied. Rest of the esophagus appeared normal. Patient tolerated the procedure well. At this time the patient continued to remain sedation. Initial digital rectal examination was normal. Olympus CF 160 video colonoscope was then inserted into the rectum and gradually advanced to the cecum without any difficulty. Careful examination was performed as the scope was gradually being withdrawn. The prep was excellent. The cecum, ascending colon, appeared normal. In the transverse colon there was a 1 cm flat polyp removed by snare polypectomy. In the descending colon there was a 1 cm polyp removed by snare polypectomy. Scattered sigmoid diverticulosis seen. Rest of the transverse colon, descending colon, si gmoid colon and rectum appeared normal. Retroflexion was performed in the rectum and no lesions were noted. Patient tolerated the procedure well. Impression: 1. 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 Colonoscopy revealed scattered sigmoid diverticulosis, 1 cm flat transverse colon polyp status post polypectomy and 1 cm descending colon polyp status post polypectomy,. Recommendations: Findings of this examination were discussed with the patient as well as family. He was advised to follow with the biopsy results.If the biopsy reveals adenoma he can have a repeat colonoscopy in 3 years.
[2022-03-23 08:03] VITALS: BP 145/75; PULSE 68; RESP 17
== END 2022-03-23 08:32 | disposition home or self-care (01) ==
LOC: ORWHC2ENDO 05:45
PROVIDERS: ATTEND Internal Medicine Gastroenterology
DX: D12.4 Benign neoplasm of descending colon (principal); K57.30 Diverticulosis of large intestine without perforation or abscess without bleeding; K22.70 Barrett's esophagus without dysplasia; K21.00 Gastro-esophageal reflux disease with esophagitis, without bleeding; K29.50 Unspecified chronic gastritis without bleeding; I10 Essential (primary) hypertension; E78.5 Hyperlipidemia, unspecified; Z95.0 Presence of cardiac pacemaker; I35.0 Nonrheumatic aortic (valve) stenosis; Z95.2 Presence of prosthetic heart valve; D86.0 Sarcoidosis of lung; G47.33 Obstructive sleep apnea (adult) (pediatric); Z87.891 Personal history of nicotine dependence; N40.0 Benign prostatic hyperplasia without lower urinary tract symptoms; Z87.442 Personal history of urinary calculi; Z79.01 Long term (current) use of anticoagulants; Z79.899 Other long term (current) drug therapy
CPT/HCPCS: 88305; 45385; 43239; J2704; J2001

== ENCOUNTER → 2022-04-10 | Outpatient (CLI) | payer MEDICARE ==
[2022-04-10 09:58] LABS: Appearance,Urine Clear (Clear); Bilirubin,Urine Negative (Negative); Blood,Urine Negative (Negative); Color,Urine Light Yellow; Glucose,Urine (UA) Negative (Negative); Ketones,Urine Negative (Negative); Leukocyte Esterase,Urine Negative (Negative); Nitrite,Urine Negative (Negative); PH, Urine 6.5 (5.0-8.0); Protein,Urine Trace (Negative); Specific Gravity,Urine 1.005 (1.001-1.035); Urobilinogen,Urine <2.0 mg/dL (<2.0)
[2022-04-10 10:41] LABS: Basophils # (A) 0.08 X 10*3/uL (0.00-0.10); Basophils % (A) 0.5 %; Eosinophils # (A) 0.12 X 10*3/uL (0.04-0.35); Eosinophils % (A) 0.8 %; HGB 11.7 g/dL (13.0-17.0); Immature Grans, Automated 0.7 %; Lymphocytes # (A) 0.67 X 10*3/uL (0.90-5.00); Lymphocytes % (A) 4.3 %; MCH 28.7 pg (27.0-32.0); MCHC 30.8 g/dL (32.0-37.0); MCV 93.1 fL (80.0-97.0); Mean Platelet Volume 9.6 fL (9.5-12.2); Monocytes # (A) 0.98 X 10*3/uL (0.20-1.00); Monocytes % (A) 6.2 %; NRBC Per 100 WBC 0 /100 WBCS (0.0-0.0); Neutrophils # (A) 13.75 X 10*3/uL (1.80-7.70); Neutrophils % (A) 87.5 %; Platelet Count 251 X 10*3/uL (140-440); RBC 4.08 X 10*6/uL (4.40-5.60); RDW 15.3 % (11.5-14.5); WBC 15.71 X 10*3/uL (4.50-10.00)
[2022-04-10 10:53] LABS: % Iron Saturation 15.19 (15.00-50.00); African American GFR (CKD) 60.6 (60.0-200.0); Albumin 3.3 g/dL (3.8-4.9); Albumin/Globulin Ratio 1.32 (1.60-3.17); Anion Gap 10.1 mmol/L (10.00-18.00); Blood Urea Nitrogen 20.8 mg/dL (9.0-27.0); Calcium 10.4 mg/dL (8.7-10.3); Carbon Dioxide 27.9 mmol/L (20.0-27.5); Globulin 2.5 g/dL (1.6-3.3); Non-African American GFR(CKD) 52.3 (60.0-200.0); Potassium 4.5 mmol/L (3.5-5.5); Total Bilirubin 0.8 mg/dL (0.30-1.20); Total Protein 5.8 g/dL (6.2-8.2); Uric Acid 7.3 mg/dL (3.7-8.7)
== END | disposition home or self-care (01) ==
LOC: LABWHC1 07:37
PROVIDERS: ATTEND Internal Medicine
DX: D64.9 Anemia, unspecified (principal); E55.9 Vitamin D deficiency, unspecified; M10.9 Gout, unspecified; N18.31 Chronic kidney disease, stage 3a; N39.0 Urinary tract infection, site not specified; N25.81 Secondary hyperparathyroidism of renal origin; R80.9 Proteinuria, unspecified
CPT/HCPCS: 36415; 80053; 81003; 82043; 82306; 82570; 82728; 83540; 83550; 83735; 83970; 84100; 84550; 85025

== ENCOUNTER → 2022-04-13 | Outpatient (CLI) | payer MEDICARE ==
--- NOTE | 2022-04-16 06:40 | PE ---
EXAMINATION TYPE: PET CT fusion skull to thigh DATE OF EXAM: 04/13/2022 COMPARISON: Most recent CTA chest March 15, 2022 and older studies HISTORY: Solitary pulmonary nodule, abnormal CT TECHNIQUE: Following the intravenous administration of 13.1 mCi of F-18 FDG, whole body images are p erformed from the skull base to the midthigh. Images are reviewed on the computer in the coronal, ax ial, and sagittal planes. Reconstructed rotating images are created on independent workstation and r eviewed on the computer. A localization and attenuation correction CT is performed in conjunction w ith the PET scan. Blood glucose level is 98. SCAN: Initial Scan FINDINGS: Slightly suboptimal secondary to patient's large body habitus. SKULL BASE AND NECK: Mild uptake posterior hypopharynx at the level of the false vocal cords is nons pecific, max SUV is 4.03 on axial image 58 series 3. No additional abnormal hypermetabolic adenopathy. CHEST, MEDIASTINUM, AND HILAR REGION: Background moderate underlying emphysematous change is redemons trated. Persistent 6.1 x 4.5 cm superior mediastinal mass causing anterior tracheal displacement inva ding the anterior mid thoracic vertebra has abnormal hypermetabolic uptake, max SUV is 15.72 on axial image 83. No additional areas of abnormal hypermetabolic uptake in the thorax. ABDOMEN AND PELVIS: No adrenal masses are seen. No areas of abnormal hypermetabolic uptake. Normal ex cretion. OSSEOUS STRUCTURES: No additional areas of abnormal hypermetabolic uptake. OTHER CT: Heterogeneous slightly prominent thyroid gland redemonstrated. Persistent cardiomegaly with multi lead pacemaker. Persistent stent graft at the aortic root along with coronary artery calcifica tions. There is small to tiny right pleural effusion on current study. Persistent focal groundglass o pacity and organizing consolidation in the medial right upper lobe. Correlate for acute infectious pr ocess. Prominent pulmonary arteries consistent with underlying pulmonary hypertension redemonstrated. Cholecystectomy clips redemonstrated. Osseous structures are demineralized. IMPRESSION: Abnormal hypermetabolic uptake in the destructive mediastinal mass consistent with neopla sm. Nonspecific subcentimeter hypermetabolic focus near level of the larynx. Consider direct visualiz ation to exclude neoplasm. No additional areas of abnormal hypermetabolic uptake identified.
== END | disposition home or self-care (01) ==
LOC: RADXRMAIN 08:29
PROVIDERS: ATTEND Internal Medicine Critical Care Medicine
DX: R91.8 Other nonspecific abnormal finding of lung field (principal); R93.7 Abnormal findings on diagnostic imaging of other parts of musculoskeletal system
CPT/HCPCS: 78815; A9552

== ENCOUNTER 2022-04-25 12:41 | Inpatient (IN) | payer MEDICARE ==
[2022-04-25] MEDS ORDERED: HYDROmorphone 0.5 MG/0.5 ML SYRINGE IVP STA (13:55)
--- NOTE | 2022-04-25 14:04 | ED ---
General Adult HPI - General Chief complaint: Weakness Stated complaint: SOB, Weakness Time Seen by Provider: 04/25/22 13:27 Source: patient, EMS, RN notes reviewed, old records reviewed Mode of arrival: EMS Limitations: physical limitation - History of Present Illness Initial comments: This is a 76-year-old male who presents emergency Department stating he was recently diagnosed with lung cancer and he is going to be having a bronchoscopy tomorrow to have further evaluated. Patient comes in today because over the last few weeks become weaker and weaker and today he was unable to stand or get out of bed. Patient states he also has chronic pain he said his chest and his back and he is been placed on a fentanyl patch and OxyContin for that. Patient also states she's been coughing up blood for 4 months and they believe is related to the cancer and that is why he is scheduled bronchoscopy tomorrow with Dr. Napier. Patient's only new complaint is that he is too weak to get around orders ambulate. Patient states she cannot go back home at this because his is unable to take care of him. Patient denies any fever chills or cough per patient denies any new chest pain difficulty breathing shortness of breath. Patient denies any abdominal pain patient denies nausea vomiting diarrhea. - Related Data Home Medications Medication Instructions Recorded Confirmed Budesonide-Formot 160-4.5 Mcg 2 puff INHALATION RT-BID 10/08/17 04/25/22 [Symbicort 160-4.5 Mcg Inhaler] amLODIPine BESYLATE 5 mg PO DAILY 12/04/18 04/25/22 Turmeric Root Extract [Turmeric] 500 mg PO DAILY 12/22/19 04/25/22 Apixaban [Eliquis] 5 mg PO BID 02/26/22 04/25/22 Atorvastatin Calcium [Lipitor] 40 mg PO HS 02/26/22 04/25/22 Metoprolol Succinate [Toprol XL] 50 mg PO DAILY 02/26/22 04/25/22 Omeprazole 20 mg PO BID 02/26/22 04/25/22 [place] Concentrate 1 dose PO DAILY PRN 02/26/22 04/25/22 Torsemide [Demadex] 20 mg PO DAILY 02/26/22 04/25/22 Albuterol Inhaler [Ventolin Hfa 1 - 2 puff INHALATION RT-Q6H PRN 04/24/22 04/25/22 Inhaler] Lactulose 10 gm PO DAILY 04/24/22 04/25/22 fentaNYL [Duragesic 37.5 MCG/HR] 1 patch TRANSDERM Q72H 04/24/22 04/25/22 oxyCODONE-APAP 10-325MG [Percocet 1 tab PO Q6HR 04/24/22 04/25/22 10-325 mg] Acetaminophen Tab [Tylenol Tab] 1,000 mg PO Q6H PRN 04/25/22 04/25/22 Previous Rx's Medication Instructions Recorded Losartan Potassium [Cozaar] 50 mg PO DAILY 30 Days #15 tab 02/27/22 Allergies Allergy/AdvReac Type Severity Reaction Status Date / Time amoxicillin trihydrate Allergy Rash/Hives Verified 04/25/22 17:30 [From Augmentin] clindamycin Allergy Rash/Hives Verified 04/25/22 17:30 ibuprofen Allergy Rash/Hives Verified 04/25/22 17:30 potassium clavulanate Allergy Rash/Hives Verified 04/25/22 17:30 [From Augmentin] ragweed pollen AdvReac SINUS Verified 04/25/22 17:30 PROBLEMS Review of Systems ROS Statement: Those systems with pertinent positive or pertinent negative responses have been documented in the HPI. ROS Other: All systems not noted in ROS Statement are negative. Past Medical History Past Medical History: Asthma, Cancer, Chest Pain / Angina, GERD/Reflux, Hearing Disorder / Deafness, Hyperlipidemia, Hypertension, Osteoarthritis (OA), Prostate Disorder, Renal Disease, Respiratory Disorder Additional Past Medical History / Comment(s): SKIN CA LT ARM. HEART MURMUR, hx AORTIC STENOSIS. Varicose Veins. 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 Colonoscopy. NECK GLAND BIOPSY. BRONCH, LUNG biopsy. TVAR aortic valve replacement 2019, skin cancer removed left arm, Past Anesthesia/Blood Transfusion Reactions: No Reported Reaction Type of Cardiac Device: Permanent Pacemaker Device Placement Date:: 2019 [employer] Past Psychological History: No Psychological Hx Reported Smoking Status: Former smoker Past Alcohol Use History: None Reported Past Drug Use History: None Reported - Past Family History Sister(s) Family Medical History: Deep Vein Thrombosis (DVT) Additional Family Medical History / Comment(s): . Mother Family Medical History: Cancer Additional Family Medical History / Comment(s): BRAIN CA, COLON CA General Exam - General Exam Comments Initial Comments: GENERAL: Patient is well-developed and well-nourished. Patient is nontoxic and well- hydrated and is in mild distress. ENT: Neck is soft and supple. No significant lymphadenopathy is noted. Oropharynx is clear. Moist mucous membranes. Neck has full range of motion without eliciting any pain. EYES: The sclera were anicteric and conjunctiva were pink and moist. Extraocular movements were intact and pupils were equal round and reactive to light. Eyelids were unremarkable. PULMONARY: Unlabored respirations. Good breath sounds bilaterally. No audible rales rhonchi or wheezing was noted. CARDIOVASCULAR: There is a regular rate and rhythm without any murmurs gallops or rubs. ABDOMEN: Soft and nontender with normal bowel sounds. SKIN: Skin is clear with no lesions or rashes and otherwise unremarkable. NEUROLOGIC: Patient is alert and oriented x3. Cranial nerves II through XII are grossly intact. Motor and sensory are also intact. Normal speech, volume and content. Symmetrical smile. MUSCULOSKELETAL: Patient's able to move all 4 extremities however his legs appear to be weak but equally weak no focal deficit noted. Patient has 2+ edema bilaterally. LYMPHATICS: No significant lymphadenopathy is noted PSYCHIATRIC: Normal psychiatric evaluation. Limitations: physical limitation Course Vital Signs 04/25/22 04/25/22 12:46 15:43 Temperature 97.2 F L 97.7 F Pulse Rate 73 68 Respiratory 16 16 Rate Blood Pressure 97/55 115/50 O2 Sat by Pulse 95 98 Oximetry Medical Decision Making - Medical Decision Making EKG shows paced rhythm at 79 bpm QRS is 100 a 70 Q-T intervals 43 QTC is 518. Multilobar pneumonia I saw the patient Rocephin and Zithromax. I spoke with [facility] agreed to admit the patient admitted the patient wrote admitting orders. - Lab Data Result diagrams: 04/25/22 14:07 07/20/22 14:07 Lab Results 04/25/22 04/25/22 04/25/22 Range/Units 14:07 14:07 14:07 WBC 23.0 H (3.8-10.6) k/uL RBC 4.07 L (4.30-5.90) m/uL Hgb 12.0 L (13.0-17.5) gm/dL Hct 37.2 L (39.0-53.0) % MCV 91.3 (80.0-100.0) fL MCH 29.6 (25.0-35.0) pg MCHC 32.4 (31.0-37.0) g/dL RDW 15.0 (11.5-15.5) % Plt Count 268 (150-450) k/uL MPV 7.2 Neutrophils % 94 % Lymphocytes % 2 % Monocytes % 3 % Eosinophils % 0 % Basophils % 0 % Neutrophils # 21.5 H (1.3-7.7) k/uL Lymphocytes # 0.5 L (1.0-4.8) k/uL Monocytes # 0.7 (0-1.0) k/uL Eosinophils # 0.0 (0-0.7) k/uL Basophils # 0.0 (0-0.2) k/uL Hypochromasia Slight Poikilocytosis Slight PT 12.1 H (9.0-12.0) sec INR 1.1 (<1.2) APTT 30.2 H (22.0-30.0) sec Sodium (137-145) mmol/L Potassium (3.5-5.1) mmol/L Chloride (98-107) mmol/L Carbon Dioxide (22-30) mmol/L Anion Gap mmol/L BUN (9-20) mg/dL Creatinine (0.66-1.25) mg/dL Est GFR (CKD-EPI)AfAm (>60 ml/min/1.73 sqM) Est GFR (CKD-EPI)NonAf (>60 ml/min/1.73 sqM) Glucose (74-99) mg/dL Plasma Lactic Acid Juan Carlos (0.7-2.0) mmol/L Calcium (8.4-10.2) mg/dL Magnesium (1.6-2.3) mg/dL Total Bilirubin (0.2-1.3) mg/dL AST (17-59) U/L ALT (4-49) U/L Alkaline Phosphatase (38-126) U/L Troponin I (0.000-0.034) ng/mL NT-Pro-B Natriuret Pep pg/mL Total Protein (6.3-8.2) g/dL Albumin (3.5-5.0) g/dL Urine Color Yellow Urine Appearance Clear (Clear) Urine pH 5.0 (5.0-8.0) Ur Specific Douglas 1.020 (1.001-1.035) Urine Protein Trace H (Negative) Urine Glucose (UA) Negative (Negative) Urine Ketones Negative (Negative) Urine Blood Small H (Negative) Urine Nitrite Negative (Negative) Urine Bilirubin Negative (Negative) Urine Urobilinogen 2.0 (<2.0) mg/dL Ur Leukocyte Esterase Negative (Negative) Urine RBC 12 H (0-5) /hpf Urine WBC 1 (0-5) /hpf Urine Bacteria Rare H (None) /hpf Hyaline Casts 1 (0-2) /lpf Urine Mucus Rare H (None) /hpf 04/25/22 04/25/22 04/25/22 Range/Units 14:07 14:07 14:07 WBC (3.8-10.6) k/uL RBC (4.30-5.90) m/uL Hgb (13.0-17.5) gm/dL Hct (39.0-53.0) % MCV (80.0-100.0) fL MCH (25.0-35.0) pg MCHC (31.0-37.0) g/dL RDW (11.5-15.5) % Plt Count (150-450) k/uL MPV Neutrophils % % Lymphocytes % % Monocytes % % Eosinophils % % Basophils % % Neutrophils # (1.3-7.7) k/uL Lymphocytes # (1.0-4.8) k/uL Monocytes # (0-1.0) k/uL Eosinophils # (0-0.7) k/uL Basophils # (0-0.2) k/uL Hypochromasia Poikilocytosis PT (9.0-12.0) sec INR (<1.2) APTT (22.0-30.0) sec Sodium 131 L (137-145) mmol/L Potassium 4.1 (3.5-5.1) mmol/L Chloride 92 L (98-107) mmol/L Carbon Dioxide 33 H (22-30) mmol/L Anion Gap 6 mmol/L BUN 35 H (9-20) mg/dL Creatinine 1.72 H (0.66-1.25) mg/dL Est GFR (CKD-EPI)AfAm 43 (>60 ml/min/1.73 sqM) Est GFR (CKD-EPI)NonAf 37 (>60 ml/min/1.73 sqM) Glucose 132 H (74-99) mg/dL Plasma Lactic Acid Juan Carlos 1.2 (0.7-2.0) mmol/L Calcium 10.0 (8.4-10.2) mg/dL Magnesium 1.8 (1.6-2.3) mg/dL Total Bilirubin 0.9 (0.2-1.3) mg/dL AST 16 L (17-59) U/L ALT 11 (4-49) U/L Alkaline Phosphatase 101 (38-126) U/L Troponin I 0.119 H* (0.000-0.034) ng/mL NT-Pro-B Natriuret Pep pg/mL Total Protein 4.9 L (6.3-8.2) g/dL Albumin 2.7 L (3.5-5.0) g/dL Urine Color Urine Appearance (Clear) Urine pH (5.0-8.0) Ur Specific Douglas (1.001-1.035) Urine Protein (Negative) Urine Glucose (UA) (Negative) Urine Ketones (Negative) Urine Blood (Negative) Urine Nitrite (Negative) Urine Bilirubin (Negative) Urine Urobilinogen (<2.0) mg/dL Ur Leukocyte Esterase (Negative) Urine RBC (0-5) /hpf Urine WBC (0-5) /hpf Urine Bacteria (None) /hpf Hyaline Casts (0-2) /lpf Urine Mucus (None) /hpf 04/25/22 Range/Units 14:07 WBC (3.8-10.6) k/uL RBC (4.30-5.90) m/uL Hgb (13.0-17.5) gm/dL Hct (39.0-53.0) % MCV (80.0-100.0) fL MCH (25.0-35.0) pg MCHC (31.0-37.0) g/dL RDW (11.5-15.5) % Plt Count (150-450) k/uL MPV Neutrophils % % Lymphocytes % % Monocytes % % Eosinophils % % Basophils % % Neutrophils # (1.3-7.7) k/uL Lymphocytes # (1.0-4.8) k/uL Monocytes # (0-1.0) k/uL Eosinophils # (0-0.7) k/uL Basophils # (0-0.2) k/uL Hypochromasia Poikilocytosis PT (9.0-12.0) sec INR (<1.2) APTT (22.0-30.0) sec Sodium (137-145) mmol/L Potassium (3.5-5.1) mmol/L Chloride (98-107) mmol/L Carbon Dioxide (22-30) mmol/L Anion Gap mmol/L BUN (9-20) mg/dL Creatinine (0.66-1.25) mg/dL Est GFR (CKD-EPI)AfAm (>60 ml/min/1.73 sqM) Est GFR (CKD-EPI)NonAf (>60 ml/min/1.73 sqM) Glucose (74-99) mg/dL Plasma Lactic Acid Juan Carlos (0.7-2.0) mmol/L Calcium (8.4-10.2) mg/dL Magnesium (1.6-2.3) mg/dL Total Bilirubin (0.2-1.3) mg/dL AST (17-59) U/L ALT (4-49) U/L Alkaline Phosphatase (38-126) U/L Troponin I (0.000-0.034) ng/mL NT-Pro-B Natriuret Pep 6640 pg/mL Total Protein (6.3-8.2) g/dL Albumin (3.5-5.0) g/dL Urine Color Urine Appearance (Clear) Urine pH (5.0-8.0) Ur Specific Douglas (1.001-1.035) Urine Protein (Negative) Urine Glucose (UA) (Negative) Urine Ketones (Negative) Urine Blood (Negative) Urine Nitrite (Negative) Urine Bilirubin (Negative) Urine Urobilinogen (<2.0) mg/dL Ur Leukocyte Esterase (Negative) Urine RBC (0-5) /hpf Urine WBC (0-5) /hpf Urine Bacteria (None) /hpf Hyaline Casts (0-2) /lpf Urine Mucus (None) /hpf Disposition Clinical Impression: Lung cancer, Pneumonia, Elevated troponin Disposition: ADMITTED IP TO THIS HOSP Referrals: Vladislav Manzano DO [Primary Care Provider] - 1-2 days Time of Disposition: 17:15
[2022-04-25 14:43] LABS: Basophils % (A) 0 %; Eosinophils % (A) 0 %; HCT 37.2 % (39.0-53.0); Hypochromasia Slight; Lymphocytes # (A) 0.5 k/uL (1.0-4.8); Lymphocytes % (A) 2 %; MCH 29.6 pg (25.0-35.0); MCHC 32.4 g/dL (31.0-37.0); MCV 91.3 fL (80.0-100.0); Mean Platelet Volume 7.2; Monocytes # (A) 0.7 k/uL (0-1.0); Monocytes % (A) 3 %; Neutrophils # (A) 21.5 k/uL (1.3-7.7); Neutrophils % (A) 94 %; Platelet Count 268 k/uL (150-450); Poikilocytosis Slight; RBC 4.07 m/uL (4.30-5.90)
[2022-04-25 14:46] LABS: Albumin 2.7 g/dL (3.5-5.0); Magnesium 1.8 mg/dL (1.6-2.3); Potassium 4.1 mmol/L (3.5-5.1); Total Bilirubin 0.9 mg/dL (0.2-1.3); Total Protein 4.9 g/dL (6.3-8.2)
[2022-04-25 15:10] LABS: INR 1.1 (<1.2); Partial Thromboplastin Time 30.2 sec (22.0-30.0); Prothrombin Time 12.1 sec (9.0-12.0)
--- NOTE | 2022-04-25 15:19 | XR ---
EXAMINATION TYPE: XR chest 2V DATE OF EXAM: 04/25/2022 COMPARISON: 01/23/2022 HISTORY: Shortness of breath TECHNIQUE: Frontal and lateral views of the chest are obtained. FINDINGS: Scattered senescent parenchymal changes noted. Hyperinflation compatible with COPD. Patchy perihilar and basilar infiltrates. Correlate for developing pneumonia. Heart size is stable. Mediastinal structures are stable and grossly unremarkable. No evidence for hilar prominence. Degenerative changes dorsal spine. IMPRESSION: 1. No evidence for acute pulmonary disease.
[2022-04-25 16:41] LABS: Appearance,Urine Clear (Clear); Bacteria,Urine Rare /hpf; Bilirubin,Urine Negative (Negative); Blood,Urine Small (Negative); Color,Urine Yellow; Glucose,Urine (UA) Negative (Negative); Hyaline Casts,Urine 1 /lpf (0-2); Ketones,Urine Negative (Negative); Leukocyte Esterase,Urine Negative (Negative); Mucus,Urine Rare /hpf; Nitrite,Urine Negative (Negative); Protein,Urine Trace (Negative); RBC,Urine 12 /hpf (0-5); WBC,Urine 1 /hpf (0-5)
[2022-04-25] MEDS ORDERED: AZITHROMYCIN 500 MG in SODIUM CHLORIDE 0.9% 250 ML IVPB STA ×2 (17:05→17:47)
[2022-04-25] MEDS ORDERED: PNEUMONIA PROTOCOL UTILIZED 1 EACH MISC PO PRN (17:47)
[2022-04-25] MEDS ORDERED: ACETAMINOPHEN TAB 325 MG TAB PO STA (17:55)
[2022-04-25] MEDS: oxyCODONE-APAP 10-325MG 1 EACH TAB PO PRN (20:42)
[2022-04-25] MEDS ORDERED: MORPHINE SULFATE 4 MG/ML SYRINGE IVP STA (22:26)
[2022-04-25] MEDS ORDERED: MORPHINE SULFATE 4 MG/ML SYRINGE IVP PRN (22:26)
--- NOTE | 2022-04-26 07:44 | XR ---
EXAMINATION TYPE: XR chest 2V DATE OF EXAM: 04/26/2022 COMPARISON: 04/25/2022 TECHNIQUE: PA and lateral views submitted. HISTORY: Cough FINDINGS: Cardiac device is seen and there is underlying COPD with patchy bilateral infiltrates stable relative to the prior exam. Underlying mass in the left hilum not excluded. No sizable pleural effusion. No o bvious pneumothorax given limitation of technique. Soft tissue fullness right paratracheal region. IMPRESSION: 1. Patchy bilateral infiltrate. Marked soft tissue prominence right paratracheal region likely corres ponds the previous CT described mass.
[2022-04-26] MEDS ORDERED: IPRATROPIUM-ALBUTEROL 3 ML NEB INHALATION PRN (10:35)
[2022-04-26] MEDS ORDERED: ACETAMINOPHEN TAB 500 MG TAB PO PRN (11:55)
[2022-04-26] MEDS ORDERED: FLUMAZENIL 0.1 MG/ML 5 ML VIAL IVP ONE (12:00)
[2022-04-26] MEDS ORDERED: MIDAZOLAM 2 MG/2 ML VIAL ONE (12:00)
[2022-04-26] MEDS ORDERED: fentaNYL (PF) 50 MCG/ML 2 ML AMP ONE (12:00)
[2022-04-26] MEDS ORDERED: ONDANSETRON 4 MG/2 ML VIAL ONE (12:00)
[2022-04-26] MEDS ORDERED: GLYCOPYRROLATE 0.2 MG/ML 2 ML VIAL ONE (12:00)
[2022-04-26] MEDS ORDERED: DEXAMETHASONE SOD PHOSPHATE 10 MG/ML 1 ML VIAL ONE (12:00)
[2022-04-26] MEDS ORDERED: FUROSEMIDE 10 MG/ML 4 ML VIAL ONE (12:00)
[2022-04-26] MEDS ORDERED: NALOXONE 0.4 MG/ML 1 ML VIAL ONE (12:00)
[2022-04-26] MEDS ORDERED: NEOSTIGMINE 1 MG/ML 10 ML VIAL ONE (12:00)
[2022-04-26] MEDS ORDERED: SODIUM CHLORIDE 0.9% 1,000 ML BAG ONE (12:00)
[2022-04-26] MEDS ORDERED: SUCCINYLCHOLINE CHLORIDE 200 MG/10 ML VIAL IV ONE (12:00)
[2022-04-26] MEDS ORDERED: SODIUM CHLORIDE 0.9% 500 ML BAG ONE (12:00)
[2022-04-26] MEDS ORDERED: SUGAMMADEX SODIUM 200 MG/2 ML SDV IV ONE (12:00)
[2022-04-26] MEDS ORDERED: LIDOCAINE 2% INJ 20 MG/ML (2 ML VIAL) ONE (12:00)
[2022-04-26] MEDS ORDERED: PROPOFOL 10 MG/ML 20 ML VIAL IV ONE (12:00)
[2022-04-26] MEDS ORDERED: ROCURONIUM 10 MG/ML (5 ML VIAL) IV ONE (12:00)
[2022-04-26] MEDS: IPRATROPIUM-ALBUTEROL 3 ML NEB INHALATION SCH ×3 (12:02→20:13)
--- NOTE | 2022-04-26 12:10 | P.CNPUL ---
History of Present Illness Consult date: 04/26/22 History of present illness: [facility] [address], [place] [address] Pulmonology - Consult Note Patient Name: Antonio Alex Date of : 1945 Patient Status: Surgical Day Care Attending Provider: Mane Owens Date: 04/26/22 10:26 Initialization Date: 04/26/22 10:26 History of Present Illness Consult date: 04/26/22 Reason for consult: lung mass History of present illness: 76-year-old male patient, presented to the emergency feeling quite weak and debilitated. The patient was becoming weaker, more somnolent and he was having ongoing issues with hemoptysis. Note that the patient was noted to have a lung mass and the patient was supposed to have a outpatient bronchoscopy today. The patient ended up checking himself to the hospital and he was admitted accordingly. The patient is known to have a remote history of question sarcoidosis. He is known to have COPD. Is a known ex-smoker. The patient had a CAT scan of the chest that was done on 03/16/2022. A CAT scan was done and the patient was coughing of blood and he was having pain in his mid upper back/posterior chest area. The patient was found to have a 6 x 5 x 5 cm right paramedline posterior mediastinal mass which was ill-defined in terms of its margin and was associated with a 2 cm right anterolateral direct invasion of the T2 vertebral body. The mass was abutting and anterior displacing the trachea. A PET scan was done and the patient was found to have intense metabolic uptake within the destructive mediastinal mass consistent with neoplasm. Note that the patient also has heart disease. The patient undergone a previous TAVR procedure for severe aortic stenosis. The patient was also given a pacemaker following the procedure and this procedure was done back in 2019. As chronic stage III kidney disease. At this point in time, the patient is coming comfortable. No cervical shortness of breath. He is on 3 L of oxygen nasal cannula with a pulse ox of 98% and a chest x-ray was done today showed patchy by the pulmonary infilt rates with marked soft tissue prominence in the right paratracheal region consistent with a mediastinal mass. The patient's white cell count was at 23 with a hemoglobin of 12, normal correlation profile, creatinine of 1.7 with a mean of 35. ProBNP level was 606 140 with a minimal troponin leak of 0.119. EKG was showing a paced rhythm. Review of Systems Constitutional: Reports daytime sleepiness, Reports fatigue, Reports weakness, Reports weight loss Eyes: denies as per HPI, denies blurred vision, denies bulging eye, denies dec reased vision, denies diplopia, denies discharge, denies dry eye, denies irritation, denies itching, denies pain, denies photophobia, denies loss of peripheral vision, denies loss of vision, denies tunnel vision/blind spots Ears: deny: decreased hearing, ear discharge, earache, tinnitus Ears, nose, mouth and throat: Reports as per HPI Breasts: absent: as per HPI, gynecomastia Cardiovascular: Reports decreased exercise tolerance, Reports dyspnea on exertion Respiratory: Reports cough, Reports dyspnea, Reports hemoptysis Gastrointestinal: Reports as per HPI Genitourinary: Reports as per HPI Musculoskeletal: Reports as per HPI, Reports limitation of motion Musculoskeletal: absent: ankle pain, ankle stiffness, ankle swelling, as per HPI, elbow pain, elbow stiffness, elbow swelling, foot pain, foot stiffness, foot swelling, hand pain, hand stiffness, hand swelling, hip pain, hip stiffness, hip swelling, knee pain, knee stiffness, knee swelling, shoulder pain, shoulder stiffness, shoulder swelling, wrist pain, wrist stiffness, wrist swelling Integumentary: Reports as per HPI Neurological: Reports as per HPI Psychiatric: Reports as per HPI Endocrine: Reports as per HPI Hematologic/Lymphatic: Reports as per HPI Allergic/Immunologic: Reports as per HPI Past Medical History Past Medical History: Asthma, Cancer, Chest Pain / Angina, GERD/Reflux, Hearing Disorder / Deafness, Hyperlipidemia, Hypertension, Osteoarthritis (OA), Prostate Disorder, Renal Disease, Respiratory Disorder Additional Past Medical History / Comment(s): Medastinal mass, posterior- superior, 6x5x5 cm with direct invasion of T2. COPD, SKIN CA LT ARM., AORTIC STENOSIS and a previous TAVR-2020, pacemaker insertion, Varicose Veins. Hx Sarcoidosis, back pain, hiatal hernia, constipation, 'spot on pancreas", BPH, chronic stage III kidney disease, HTN, hyperlipidemia, History of Any Multi-Drug Resistant Organisms: MRSA Date of last positivie culture/infection: 2009 MDRO Source:: sinus Past Surgical History: Cardiac Valve Replacement, Cholecystectomy, Heart Catheterization, Pacemaker, Prostate Surgery Additional Past Surgical History / Comment(s): Septoplasty. Colonoscopy. NECK GLAND BIOPSY. BRONCH, LUNG biopsy. 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 Mother Family Medical History: Cancer Additional Family Medical History / Comment(s): BRAIN CA, COLON CA Medications and Allergies Home Medications Medication Instructions Recorded Confirmed Type Budesonide-Formot 160-4.5 Mcg 2 puff INHALATION RT-BID 10/08/17 04/25/22 History [Symbicort 160-4.5 Mcg Inhaler] amLODIPine BESYLATE 5 mg PO DAILY 12/04/18 04/25/22 History Turmeric Root Extract [Turmeric] 500 mg PO DAILY 12/22/19 04/25/22 History Apixaban [Eliquis] 5 mg PO BID 02/26/22 04/25/22 History Atorvastatin Calcium [Lipitor] 40 mg PO HS 02/26/22 04/25/22 History Metoprolol Succinate [Toprol XL] 50 mg PO DAILY 02/26/22 04/25/22 History Omeprazole 20 mg PO BID 02/26/22 04/25/22 History Tart Smith Concentrate 1 dose PO DAILY PRN 02/26/22 04/25/22 History Torsemide [Demadex] 20 mg PO DAILY 02/26/22 04/25/22 History Losartan Potassium [Cozaar] 50 mg PO DAILY 30 Days #15 tab 02/27/22 04/25/22 Rx Albuterol Inhaler [Ventolin Hfa 1 - 2 puff INHALATION RT-Q6H PRN 04/24/22 04/25/22 History Inhaler] Lactulose 10 gm PO DAILY 04/24/22 04/25/22 History fentaNYL [Duragesic 37.5 MCG/HR] 1 patch TRANSDERM Q72H 04/24/22 04/25/22 History oxyCODONE-APAP 10-325MG [Percocet 1 tab PO Q6HR 04/24/22 04/25/22 History 10-325 mg] Acetaminophen Tab [Tylenol Tab] 1,000 mg PO Q6H PRN 04/25/22 04/25/22 History Allergies Allergy/AdvReac Type Severity Reaction Status Date / Time amoxicillin trihydrate Allergy Rash/Hives Verified 04/25/22 17:30 [From Augmentin] clindamycin Allergy Rash/Hives Verified 04/25/22 17:30 ibuprofen Allergy Rash/Hives Verified 04/25/22 17:30 potassium clavulanate Allergy Rash/Hives Verified 04/25/22 17:30 [From Augmentin] ragweed pollen AdvReac SINUS Verified 04/25/22 17:30 PROBLEMS Physical Exam Gen. appearance the patient is coming comfortable no acute distress, breathing is nonlabored on 3 L O2 nasal cannula Head exam was generally normal. There was no scleral icterus or corneal arcus. Mucous membranes were moist. Neck was supple and without jugular venous distension, thyromegaly, or carotid b ruits. Carotids were easily palpable bilaterally. There was no adenopathy. Lungs sounds are diminished and patient has scattered rhonchi and scattered expiratory wheezes without the lung his bilaterally and the patient has a pacemaker pocket over the left anterior chest area. Cardiac exam revealed the PMI to be normally situated and sized. The rhythm was regular and no extrasystoles were noted during several minutes of auscultation. The first and second heart sounds were normal and physiologic splitting of the second heart sound was noted. There was a systolic ejection murmur grade 3/6 in the precordium, rubs, clicks, or gallops. Abdominal exam revealed normal bowel sounds. The abdomen was soft, non-tender, and without masses, organomegaly, or appreciable enlargement of the abdominal aorta. Examination of the extremities revealed easily palpable radial, femoral and pedal pulses. There was no cyanosis, clubbing or edema. Examination of the skin revealed no evidence of significant rashes, suspicious appearing nevi or other concerning lesions. Results - Diagnostic Findings Chest x-ray: image reviewed Assessment and Plan Plan: Hemoptysis Mediastinal mass. The patient is a 6 x 5 x 5 cm posterior superior mediastinal mass, with direct anterolateral invasion of the T2 vertebral body, highly active on PET scan and highly suspicious for tracheal wall invasion posteriorly. This is most likely an underlying malignancy Back pain secondary to above COPD History aortic valve stenosis with a previous TAVR and a previous pacemaker insertion. Echocardiogram from February 2022 showed preserved LV, bioprosthetic aortic valve which is in place and no significant leaks Chronic stage III kidney disease History of sarcoidosis which is currently inactive in stable Troponin leak, nonspecific Acute leukocytosis Plan Proceed with bronchoscopy, airway inspection, tracheal wall inspection. Highly suspected tracheal wall invasion from the posterior mediastinal mass. Patient was agreeable to procedure. We'll continue to follow make further recommendations based on his progress. Past Medical History Past Medical History: Asthma, Cancer, Chest Pain / Angina, GERD/Reflux, Hearing Disorder / Deafness, Hyperlipidemia, Hypertension, Osteoarthritis (OA), Prostate Disorder, Renal Disease, Respiratory Disorder Additional Past Medical History / Comment(s): SKIN CA LT ARM. HEART MURMUR, hx AORTIC STENOSIS. Varicose Veins. 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 Colonoscopy. NECK GLAND BIOPSY. BRONCH, LUNG biopsy. TVAR aortic valve replacement 2019, skin cancer removed left arm, Past Anesthesia/Blood Transfusion Reactions: No Reported Reaction Type of Cardiac Device: Permanent Pacemaker Device Placement Date:: 2019 [employer] Past Psychological History: No Psychological Hx Reported Smoking Status: Former smoker Past Alcohol Use History: None Reported Additional Past Alcohol Use History / Comment(s): STARTED SMOKING AT AGE 16, QUIT IN 1973, SMOKED 3PPD Past Drug Use History: None Reported - Past Family History Sister(s) Family Medical History: Deep Vein Thrombosis (DVT) Additional Family Medical History / Comment(s): . Mother Family Medical History: Cancer Additional Family Medical History / Comment(s): BRAIN CA, COLON CA Medications and Allergies Home Medications Medication Instructions Recorded Confirmed Type Budesonide-Formot 160-4.5 Mcg 2 puff INHALATION RT-BID 10/08/17 04/25/22 History [Symbicort 160-4.5 Mcg Inhaler] amLODIPine BESYLATE 5 mg PO DAILY 12/04/18 04/25/22 History Turmeric Root Extract [Turmeric] 500 mg PO DAILY 12/22/19 04/25/22 History Apixaban [Eliquis] 5 mg PO BID 02/26/22 04/25/22 History Atorvastatin Calcium [Lipitor] 40 mg PO HS 02/26/22 04/25/22 History Metoprolol Succinate [Toprol XL] 50 mg PO DAILY 02/26/22 04/25/22 History Omeprazole 20 mg PO BID 02/26/22 04/25/22 History Tart [place] Concentrate 1 dose PO DAILY PRN 02/26/22 04/25/22 History Torsemide [Demadex] 20 mg PO DAILY 02/26/22 04/25/22 History Losartan Potassium [Cozaar] 50 mg PO DAILY 30 Days #15 tab 02/27/22 04/25/22 Rx Albuterol Inhaler [Ventolin Hfa 1 - 2 puff INHALATION RT-Q6H PRN 04/24/22 04/25/22 History Inhaler] Lactulose 10 gm PO DAILY 04/24/22 04/25/22 History fentaNYL [Duragesic 37.5 MCG/HR] 1 patch TRANSDERM Q72H 04/24/22 04/25/22 History oxyCODONE-APAP 10-325MG [Percocet 1 tab PO Q6HR 04/24/22 04/25/22 History 10-325 mg] Acetaminophen Tab [Tylenol Tab] 1,000 mg PO Q6H PRN 04/25/22 04/25/22 History Allergies Allergy/AdvReac Type Severity Reaction Status Date / Time amoxicillin trihydrate Allergy Rash/Hives Verified 04/25/22 17:30 [From Augmentin] clindamycin Allergy Rash/Hives Verified 04/25/22 17:30 ibuprofen Allergy Rash/Hives Verified 04/25/22 17:30 potassium clavulanate Allergy Rash/Hives Verified 04/25/22 17:30 [From Augmentin] ragweed pollen AdvReac SINUS Verified 04/25/22 17:30 PROBLEMS Physical Exam Vitals: Vital Signs Temp Pulse Pulse Resp BP BP Pulse Ox 04/26/22 08:00 98.1 F 86 20 113/56 98 04/26/22 04:00 98.6 F 85 22 115/60 94 L 04/25/22 23:03 97.9 F 92 19 121/62 92 L 04/25/22 21:33 99.0 F 72 19 112/63 95 04/25/22 20:06 70 20 115/64 93 L 04/25/22 18:09 73 16 113/58 93 L 04/25/22 15:43 97.7 F 68 16 115/50 98 04/25/22 12:46 97.2 F L 73 16 97/55 95 Intake and Output 04/25/22 04/26/22 04/26/22 22:59 06:59 14:59 Output Total 425 200 Balance -425 -200 Output: Urine 425 200 Other: Voiding Method Indwelling Catheter Weight 106.141 kg Results - Laboratory Findings CBC and BMP: 04/25/22 14:07 04/25/22 14:07 PT/INR, D-dimer PT 12.1 sec (9.0-12.0) H 04/25/22 14:07 INR 1.1 (<1.2) 04/25/22 14:07 Abnormal lab findings: Abnormal Labs 04/25/22 04/25/22 04/25/22 14:07 14:07 14:07 WBC 23.0 H RBC 4.07 L Hgb 12.0 L Hct 37.2 L Neutrophils # 21.5 H Lymphocytes # 0.5 L PT 12.1 H APTT 30.2 H Sodium Chloride Carbon Dioxide BUN Creatinine Glucose AST Troponin I Total Protein Albumin Urine Protein Trace H Urine Blood Small H Urine RBC 12 H Urine Bacteria Rare H Urine Mucus Rare H 04/25/22 04/25/22 14:07 14:07 WBC RBC Hgb Hct Neutrophils # Lymphocytes # PT APTT Sodium 131 L Chloride 92 L Carbon Dioxide 33 H BUN 35 H Creatinine 1.72 H Glucose 132 H AST 16 L Troponin I 0.119 H* Total Protein 4.9 L Albumin 2.7 L Urine Protein Urine Blood Urine RBC Urine Bacteria Urine Mucus
--- NOTE | 2022-04-26 13:27 | P.PCN ---
Date of Procedure: 04/26/22 Preoperative Diagnosis: Superior mediastinal mass Postoperative Diagnosis: Superior mediastinal mass Procedure(s) Performed: EBUS bronchoscopy and transbronchial needle aspirate of superior mediastinal mass Anesthesia: MAGALI Surgeon: Hannah العراقي Heavy Machinery Operator #1: Clary Castro Estimated Blood Loss (ml): 0 Pathology: other Condition: stable Disposition: floor Operative Findings: This procedure was done and a endoscopy room. A consent was obtained. After achieving adequate sedation, the patient was intubated by [employer] and placed on a mechanical ventilator. Following that, the flexible bronchoscope was introduced and the entire trachea was examined and visualized. As his trach was being visualized, the EEG was pulled all the way up to the subglottic area just next to the cricoid. There was some minimal swelling/irregularities along the poste rior wall of the trachea in its midportion, however there was not the bronchial tumors noted. There was probably some mass effect also in the same area and the membranous trachea was looking to be compressed and the mucosa was swollen and folded. The airway was completed. Bilateral mainstem bronchi, right upper lobeBronchus, bronchus intermedius, right middle lobe and right lower lobe bronchus along with a based and segments on the right and then examination of the left mainstem bronchus, left upper and left lower lobe rhonchi and the various 8 segments on the left was visualized. There was some looseness for secretions were identified and there was no evidence of any endobronchial tumors or lesions or abnormalities. Therapeutic airway suctioning was done. Following that EBUS bronchoscopy was performed. The entire trachea was identified. The aortic arch was identified. Following that, looking through the posterior wall of the trachea, the posterior superior mediastinal mass was identified. This was a large 5 x 6 cm mass seen on EBUS. Transbronchial needle aspirate of the posterior mediastinal mass was done under EBUS guidance. Rapid on-site pathologic evaluation was done. Adequacy of the samples were confirmed. Following that, a total of 5 passes was done using EBUS guidance. Bronchoscope was removed. Flexible bronchoscope was again introduced and therapeutic it was suctioning was done. The procedure was completed. He was terminated. Bronchus, was removed. The patient was extubated and transferred to recovery in stable condition. Awaiting final pathology results.
[2022-04-26 14:17] LABS: Basophils % (A) 0 %; Eosinophils # (A) 0.1 k/uL (0-0.7); Eosinophils % (A) 0 %; HCT 41.7 % (39.0-53.0); HGB 12.9 gm/dL (13.0-17.5); Hypochromasia Marked; Lymphocytes # (A) 0.6 k/uL (1.0-4.8); Lymphocytes % (A) 3 %; MCH 29.4 pg (25.0-35.0); MCHC 31.1 g/dL (31.0-37.0); MCV 94.8 fL (80.0-100.0); Mean Platelet Volume 6.9; Monocytes # (A) 0.8 k/uL (0-1.0); Monocytes % (A) 4 %; Neutrophils # (A) 17.3 k/uL (1.3-7.7); Neutrophils % (A) 91 %; Platelet Count 300 k/uL (150-450); Poikilocytosis Slight
[2022-04-26 14:48] LABS: Calcium 10.1 mg/dL (8.4-10.2); Potassium 4.2 mmol/L (3.5-5.1)
[2022-04-26] MEDS: LACTULOSE 20 GM/30 ML CUP PO SCH (16:29)
[2022-04-26] MEDS: METOPROLOL SUCCINATE (ER) 50 MG TAB.ER.24H PO SCH (17:34)
[2022-04-26] MEDS: PANTOPRAZOLE 40 MG TABLET PO SCH (17:34)
[2022-04-26] MEDS: AZITHROMYCIN 500 MG TAB PO SCH (17:34)
[2022-04-26] MEDS: ATORVASTATIN 40 MG TAB PO SCH (20:03)
[2022-04-26] MEDS: SYMBICORT 160-4.5 MCG INHALER INHALATION SCH (20:16)
--- NOTE | 2022-04-26 23:33 | P.HPIM ---
History of Present Illness H&P Date: 04/26/22 Chief Complaint: Generalized weakness Patient is a 76-year-old male with a long history of out, hypertension, hyperlipidemia, hearing Glusartel/deafness, obstructives, aortic stenosis and previous history of TAVR in 2019, history of permanent pacemaker placement, history of sarcoidosis and CKD stage III and other mild medical problems presents ER with complaints of generalized weakness and unable to stand up get out of bed. Patient is also having chronic pain in his chest and back and also using fentanyl patch and OxyContin at home. He has been having hemoptysis for the past 4 months and also scheduled for bronchoscopy due to recently diagnosed lung mass. Patient had CT chest done on 03/16/2022. Patient is also having loss of weight. No complaints of chest pain or worsening shortness of breath. On admission blood pressures 97/55 and pulse 73 respiration 16 and pulse ox 95% on 4 L oxygen via nasal cannula. Chest x-ray showed no evidence for acute pulmonary disease. EKG showed electronic ventricular paced rhythm. Chest x-ray showed patchy bilateral infiltrate. Marker soft tissue prominence right paratracheal region likely corresponds to the previous CT described mass. Laboratory pressure WBC 23.0 hemoglobin 12.0 and platelets 268 INR 1.1 Sodium 131 potassium 4.1 chloride 92 bicarb 33 BUN 35 and creatinine 1.72 Troponin 0.119 and proBNP 6640 and albumin 2.7 Urinalysis negative for infection Coronavirus PCR not detected. Review of Systems Constitutional: Patient denies any fever or chills . Generalized weakness. Abdomen: Patient denied any nausea or vomiting or abd. pain Cardiovascular: Patient denies any chest pain or short of breath no palpitations. Respiratory: patient denied any cough is from production. No shortness of breath Neurologic: Patient denied any numbness or tingling headache. Musculoskeletal: Patient denies any complaints of joint swelling or deformity. Skin: Negative Psychiatric: Negative Endocrine: No heat or cold intolerance. No recent weight gain. Genitourinary: No dysuria or hematuria. All other 14 point ROS negative except the above Past Medical History Past Medical History: Asthma, Cancer, Chest Pain / Angina, GERD/Reflux, Hearing Disorder / Deafness, Hyperlipidemia, Hypertension, Osteoarthritis (OA), Prostate Disorder, Renal Disease, Respiratory Disorder Additional Past Medical History / Comment(s): SKIN CA LT ARM. HEART MURMUR, hx AORTIC STENOSIS. Varicose Veins. Hx Sarcoidosis, back pain, tumor in lung, h iatal hernia, constipation, 'spot on pancreas", enlarged prostate, "stage III kidney disease", "gland by jaw" History of Any Multi-Drug Resistant Organisms: MRSA Date of last positivie culture/infection: 2009 MDRO Source:: sinus Past Surgical History: Cardiac Valve Replacement, Cholecystectomy, Heart Catheterization, Pacemaker, Prostate Surgery Additional Past Surgical History / Comment(s): Septoplasty. Colonoscopy. NECK GLAND BIOPSY. BRONCH, LUNG biopsy. TVAR aortic valve replacement 2019, skin cancer removed left arm, Past Anesthesia/Blood Transfusion Reactions: No Reported Reaction Type of Cardiac Device: Permanent Pacemaker Device Placement Date:: 2019 [employer] Past Psychological History: No Psychological Hx Reported Smoking Status: Former smoker Past Alcohol Use History: None Reported Additional Past Alcohol Use History / Comment(s): STARTED SMOKING AT AGE 16, QUIT IN 1973, SMOKED 3PPD Past Drug Use History: None Reported - Past Family History Sister(s) Family Medical History: Deep Vein Thrombosis (DVT) Additional Family Medical History / Comment(s): . Mother Family Medical History: Cancer Additional Family Medical History / Comment(s): BRAIN CA, COLON CA Medications and Allergies Home Medications Medication Instructions Recorded Confirmed Type Budesonide-Formot 160-4.5 Mcg 2 puff INHALATION RT-BID 10/08/17 04/25/22 History [Symbicort 160-4.5 Mcg Inhaler] amLODIPine BESYLATE 5 mg PO DAILY 12/04/18 04/25/22 History Turmeric Root Extract [Turmeric] 500 mg PO DAILY 12/22/19 04/25/22 History Apixaban [Eliquis] 5 mg PO BID 02/26/22 04/25/22 History Atorvastatin Calcium [Lipitor] 40 mg PO HS 02/26/22 04/25/22 History Metoprolol Succinate [Toprol XL] 50 mg PO DAILY 02/26/22 04/25/22 History Omeprazole 20 mg PO BID 02/26/22 04/25/22 History [place] Concentrate 1 dose PO DAILY PRN 02/26/22 04/25/22 History Torsemide [Demadex] 20 mg PO DAILY 02/26/22 04/25/22 History Losartan Potassium [Cozaar] 50 mg PO DAILY 30 Days #15 tab 02/27/22 04/25/22 Rx Albuterol Inhaler [Ventolin Hfa 1 - 2 puff INHALATION RT-Q6H PRN 04/24/2204/25 History Inhaler] Lactulose 10 gm PO DAILY 04/24/22 04/25/22 History fentaNYL [Duragesic 37.5 MCG/HR] 1 patch TRANSDERM Q72H 04/24/22 04/25/22 History oxyCODONE-APAP 10-325MG [Percocet 1 tab PO Q6HR 04/24/22 04/25/22 History 10-325 mg] Acetaminophen Tab [Tylenol Tab] 1,000 mg PO Q6H PRN 04/25/22 04/25/22 History Allergies Allergy/AdvReac Type Severity Reaction Status Date / Time amoxicillin trihydrate Allergy Rash/Hives Verified 04/25/22 17:30 [From Augmentin] clindamycin Allergy Rash/Hives Verified 04/25/22 17:30 ibuprofen Allergy Rash/Hives Verified 04/25/22 17:30 potassium clavulanate Allergy Rash/Hives Verified 04/25/22 17:30 [From Augmentin] ragweed pollen AdvReac SINUS Verified 04/25/22 17:30 PROBLEMS Physical Exam Vitals: Vital Signs Temp Pulse Pulse Resp BP BP Pulse Ox 04/26/22 08:00 98.1 F 86 20 113/56 98 04/26/22 04:00 98.6 F 85 22 115/60 94 L 04/25/22 23:03 97.9 F 92 19 121/62 92 L 04/25/22 21:33 99.0 F 72 19 112/63 95 04/25/22 20:06 70 20 115/64 93 L 04/25/22 18:09 73 16 113/58 93 L 04/25/22 15:43 97.7 F 68 16 115/50 98 04/25/22 12:46 97.2 F L 73 16 97/55 95 Intake and Output 04/25/22 04/26/22 04/26/22 22:59 06:59 14:59 Output Total 425 200 Balance -425 -200 Output: Urine 425 200 Other: Voiding Method Indwelling Catheter Weight 106.141 kg PHYSICAL EXAMINATION: Patient is lying in the bed comfortably, no acute distress, awake alert and oriented.. HEENT: Normocephalic. Neck is supple. Pupils reactive. Nostrils clear. Oral cavity is moist. Neck reveals no JVD, carotid bruits, or thyromegaly. CHEST EXAMINATION: Trachea is central. Symmetrical expansion. Lung teresa clear to auscultation and percussion. CARDIAC: Normal S1, S2 with no gallops. No murmurs ABDOMEN: Soft. Bowel sounds present. Nontender. No organomegaly. No abdominal bruits. Extremities: reveal no edema. No clubbing or cyanosis Neurologically awake, alert, oriented x3 with well-coordinated movements. No focal deficits noted Skin: No rash or skin lesions. Psychiatric: Coperative. Nonsuicidal, anxious. Musculoskeletal: No joint swelling or deformity. Normal range of motion. Results CBC & Chem 7: 04/26/22 14:03 04/26/22 14:03 Labs: Abnormal Lab Results - Last 24 Hours (Table) 04/25/22 04/25/22 04/25/22 Range/Units 14:07 14:07 14:07 WBC 23.0 H (3.8-10.6) k/uL RBC 4.07 L (4.30-5.90) m/uL Hgb 12.0 L (13.0-17.5) gm/dL Hct 37.2 L (39.0-53.0) % Neutrophils # 21.5 H (1.3-7.7) k/uL Lymphocytes # 0.5 L (1.0-4.8) k/uL PT 12.1 H (9.0-12.0) sec APTT 30.2 H (22.0-30.0) sec Sodium (137-145) mmol/L Chloride (98-107) mmol/L Carbon Dioxide (22-30) mmol/L BUN (9-20) mg/dL Creatinine (0.66-1.25) mg/dL Glucose (74-99) mg/dL AST (17-59) U/L Troponin I (0.000-0.034) ng/mL Total Protein (6.3-8.2) g/dL Albumin (3.5-5.0) g/dL Urine Protein Trace H (Negative) Urine Blood Small H (Negative) Urine RBC 12 H (0-5) /hpf Urine Bacteria Rare H (None) /hpf Urine Mucus Rare H (None) /hpf 07/20/22 07/20/22 Range/Units 14:07 14:07 WBC (3.8-10.6) k/uL RBC (4.30-5.90) m/uL Hgb (13.0-17.5) gm/dL Hct (39.0-53.0) % Neutrophils # (1.3-7.7) k/uL Lymphocytes # (1.0-4.8) k/uL PT (9.0-12.0) sec APTT (22.0-30.0) sec Sodium 131 L (137-145) mmol/L Chloride 92 L (98-107) mmol/L Carbon Dioxide 33 H (22-30) mmol/L BUN 35 H (9-20) mg/dL Creatinine 1.72 H (0.66-1.25) mg/dL Glucose 132 H (74-99) mg/dL AST 16 L (17-59) U/L Troponin I 0.119 H* (0.000-0.034) ng/mL Total Protein 4.9 L (6.3-8.2) g/dL Albumin 2.7 L (3.5-5.0) g/dL Urine Protein (Negative) Urine Blood (Negative) Urine RBC (0-5) /hpf Urine Bacteria (None) /hpf Urine Mucus (None) /hpf Microbiology - Last 24 Hours (Table) 04/25/22 18:05 Blood Culture - Final Blood 04/25/22 18:02 Blood Culture - Final Blood 04/25/22 20:31 Gram Stain - Preliminary Sputum Sputum Culture - Preliminary Thrombosis Risk Factor Assmnt - DVT/VTE Prophylaxis DVT/VTE Prophylaxis: Pharmacologic Prophylaxis ordered - Choose All That Apply Any of the Below Risk Factors Present?: Yes Each Factor Represents 1 point: Abnormal pulmonary function (COPD) Each Risk Factor Represents 3 Points: Age 75 years or older Thrombosis Risk Factor Assessment Total Risk Factor Score: 4 Thrombosis Risk Factor Assessment Level: Moderate Risk Assessment and Plan Assessment: 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 Recent history of hemoptysis Hypovolemic hyponatremia Acute kidney injury likely prerenal with CKD stage III Troponin leak leukocytosis COPD not in exacerbation Chronic back pain History of aortic stenosis status post TAVR in 2019 History of sarcoidosis DVT prophylaxis with heparin subcu Plan: Patient will be oxygen supplementation and antibiotics in the form of ceftriaxone azithromycin. Pulmonary is planning for bronchoscopy today. Continue with DuoNebs. Current pain management and home medications including blood pressure medications. Currently on fentanyl patch and Percocet 10. Follow closely. Prognosis guarded at this time. Time with Patient: Greater than 30
[2022-04-27] MEDS: PANTOPRAZOLE 40 MG TABLET PO SCH (06:31)
[2022-04-27] MEDS: SYMBICORT 160-4.5 MCG INHALER INHALATION SCH ×2 (08:04→19:41)
[2022-04-27] MEDS: IPRATROPIUM-ALBUTEROL 3 ML NEB INHALATION SCH ×4 (08:04→19:41)
[2022-04-27 08:57] LABS: Potassium 4.5 mmol/L (3.5-5.1)
[2022-04-27 09:25] LABS: Basophils % (A) 0 %; Eosinophils % (A) 0 %; HGB 11.8 gm/dL (13.0-17.5); Hypochromasia Marked; Lymphocytes # (A) 0.5 k/uL (1.0-4.8); Lymphocytes % (A) 3 %; MCH 28.4 pg (25.0-35.0); MCHC 30.3 g/dL (31.0-37.0); MCV 93.5 fL (80.0-100.0); Mean Platelet Volume 7.2; Monocytes # (A) 0.8 k/uL (0-1.0); Monocytes % (A) 5 %; Neutrophils # (A) 15.6 k/uL (1.3-7.7); Neutrophils % (A) 92 %; Platelet Count 247 k/uL (150-450); RBC 4.17 m/uL (4.30-5.90); RDW 14.8 % (11.5-15.5)
[2022-04-27] MEDS: LACTULOSE 20 GM/30 ML CUP PO SCH (09:34)
[2022-04-27] MEDS: amLODIPine 5 MG TAB PO SCH (09:34)
[2022-04-27] MEDS: AZITHROMYCIN 500 MG TAB PO SCH (09:34)
[2022-04-27] MEDS: METOPROLOL SUCCINATE (ER) 50 MG TAB.ER.24H PO SCH (09:34)
[2022-04-27] MEDS: oxyCODONE-APAP 10-325MG 1 EACH TAB PO PRN ×2 (09:39→19:45)
[2022-04-27] MEDS ORDERED: FUROSEMIDE 10 MG/ML 4 ML VIAL IV STA (11:02)
[2022-04-27] MEDS: methylPREDNISolone SOD SUCCI 125 MG/2 ML VIAL IV SCH ×3 (12:20→23:29)
--- NOTE | 2022-04-27 14:45 | P.PN ---
Subjective Progress Note Date: 04/27/22 76-year-old male patient, presented to the emergency feeling quite weak and debilitated. The patient was becoming weaker, more somnolent and he was having ongoing issues with hemoptysis. Note that the patient was noted to have a lung mass and the patient was supposed to have a outpatient bronchoscopy today. The patient ended up checking himself to the hospital and he was admitted accordingly. The patient is known to have a remote history of question sarcoidosis. He is known to have COPD. Is a known ex-smoker. The patient had a CAT scan of the chest that was done on 03/16/2022. A CAT scan was done and the patient was coughing of blood and he was having pain in his mid upper back/posterior chest area. The patient was found to have a 6 x 5 x 5 cm right paramedline posterior mediastinal mass which was ill-defined in terms of its margin and was associated with a 2 cm right anterolateral direct invasion of the T2 vertebral body. The mass was abutting and anterior displacing the trachea. A PET scan was done and the patient was found to have intense metabolic uptake within the destructive mediastinal mass consistent with neoplasm. Note that the patient also has heart disease. The patient undergone a previous TAVR procedure for severe aortic stenosis. The patient was also given a pacemaker following the procedure and this procedure was done back in 2019. As chronic stage III ki dney disease. At this point in time, the patient is coming comfortable. No cervical shortness of breath. He is on 3 L of oxygen nasal cannula with a pulse ox of 98% and a chest x-ray was done today showed patchy by the pulmonary infiltrates with marked soft tissue prominence in the right paratracheal region consistent with a mediastinal mass. The patient's white cell count was at 23 with a hemoglobin of 12, normal correlation profile, creatinine of 1.7 with a mean of 35. ProBNP level was 606 140 with a minimal troponin leak of 0.119. EKG was showing a paced rhythm. The patient is seen today 04/27/2022 in follow-up on the selective care unit. He is currently awake and alert in no acute distress. He has a loose nonproductive cough. Maintaining saturations in the mid 90s on 3 L/m per nasal cannula. He has some complaints of upper extremity weakness. Blood culture is positive for gram-negative bacilli sputum culture pending. White count 17.0. Hemoglobin 11.8. Sodium 133. Potassium 4.5. BUN 4. Creatinine 1.47. Glucose 150. He did undergo EBUS bronchoscopy with FNA of the superior mediastinal mass. Pathology is pending. He remains on DuoNeb inhalations, Symbicort, a ntibiotics in the form of ceftriaxone. Objective - Vital Signs Vital signs: Vital Signs Temp 97.7 F 04/27/22 08:00 Pulse 60 04/27/22 14:00 Resp 18 04/27/22 14:00 BP 106/60 04/27/22 12:00 Pulse Ox 95 04/27/22 12:00 FiO2 50 04/26/22 16:30 Intake & Output 04/26/22 04/27/22 04/27/22 18:59 06:59 18:59 Intake Total 900 Output Total 200 250 150 Balance 700 -250 -150 Intake: IV 900 Output: Urine 200 250 150 Other: Voiding Method Indwelling Catheter - Exam Gen. appearance: A pleasant 76-year-old male patient, on 3 L nasal cannula, the patient is comfortable no acute distress, is complaining of some upper extremity weakness Head exam was generally normal. There was no scleral icterus or corneal arcus. Mucous membranes were moist. Neck was supple and without jugular venous distension, thyromegaly, or carotid bruits. Carotids were easily palpable bilaterally. There was no adenopathy. Lungs sounds are diminished and patient has scattered rhonchi and scattered expiratory wheezes without the lung his bilaterally and the patient has a pacemaker pocket over the left anterior chest area. Cardiac exam revealed the PMI to be normally situated and sized. The rhythm was regular and no extrasystoles were noted during several minutes of auscultation. The first and second heart sounds were normal and physiologic splitting of the second heart sound was noted. There was a systolic ejection murmur grade 3/6 in the precordium, rubs, clicks, or gallops. Abdominal exam revealed normal bowel sounds. The abdomen was soft, non-tender, and without masses, organomegaly, or appreciable enlargement of the abdominal aorta. Examination of the extremities revealed easily palpable radial, femoral and pedal pulses. There was no cyanosis, clubbing or edema. Examination of the skin revealed no evidence of significant rashes, suspicious appearing nevi or other concerning lesions. - Labs CBC & Chem 7: 04/27/22 07:58 04/27/22 07:58 Labs: Abnormal Lab Results - Last 24 Hours (Table) 04/26/22 04/27/22 04/27/22 Range/Units 14:03 07:58 07:58 WBC 17.0 H (3.8-10.6) k/uL RBC 4.17 L (4.30-5.90) m/uL Hgb 11.8 L (13.0-17.5) gm/dL MCHC 30.3 L (31.0-37.0) g/dL Neutrophils # 15.6 H (1.3-7.7) k/uL Lymphocytes # 0.5 L (1.0-4.8) k/uL Sodium 132 L 133 L (137-145) mmol/L Chloride 94 L 94 L (98-107) mmol/L Carbon Dioxide 34 H 34 H (22-30) mmol/L BUN 45 H 49 H (9-20) mg/dL Creatinine 1.60 H 1.47 H (0.66-1.25) mg/dL Glucose 126 H 150 H (74-99) mg/dL Microbiology - Last 24 Hours (Table) 04/25/22 18:05 Blood Culture Gram Stain - Preliminary Blood Blood Culture - Preliminary Gram Neg Bacilli 04/25/22 18:02 Blood Culture Gram Stain - Preliminary Blood Blood Culture - Preliminary Staphylococcus epidermidis Assessment and Plan Assessment: Hemoptysis, no evidence of endobronchial lesion or bleeding Mediastinal mass. The patient is a 6 x 5 x 5 cm posterior superior mediastinal mass, with direct anterolateral invasion of the T2 vertebral body, highly active on PET scan and highly suspicious for tracheal wall invasion posteriorly. This is most likely an underlying malignancy. Status post EBUS bronchoscopy with FNA of the mediastinal mass. Pathology pending Bacteremia secondary to gram-negative bacilli Back pain secondary to above with some upper extremity weakness COPD History aortic valve stenosis with a previous TAVR and a previous pacemaker insertion. Echocardiogram from February 2022 showed preserved LV, bioprosthetic aortic valve which is in place and no significant leaks Chronic stage III kidney disease History of sarcoidosis which is currently inactive in stable Troponin leak, nonspecific Acute leukocytosis Plan: The patient was seen and evaluated Labs and medications reviewed Blood cultures positive for gram-negative bacilli Infectious disease senior energy consultant Currently on ceftriaxone Initiate IV Solu-Medrol 60 mg every 6 hours Lasix 40 mg IVP 1 Continue Symbicort, DuoNeb inhalations Titrate down the FiO2 as tolerated Obtain an MRI of the cervical spine due to upper extremity weakness and possible cord involvement We will continue to follow and make further recommendations based on his clinical status I have personally seen and examined the patient, performed the documentation and the assessment and plan as written. I have personally seen and examined the patient and reviewed the documentation. I performed a joint evaluation with the nurse practitioner in this evaluation was done more than 20 minutes. I fully agree with the documentation above and the plan of care.. The patient is doing well. The patient is currently off BiPAP. Note that the patient had to be placed on BiPAP briefly after the procedure the patient is currently on oxygen by nasal cannula. He has COPD exacerbation and the patient will be started on some steroids. In terms of the possible culture, the patient was found to have gram-negative bacillus and the blood and this is obviously concerned as the patient has a pacemaker and a TAVR procedure done earlier. The patient is currently on IV Rocephin 2 g every 24 hours. We'll check a pro-calcitonin level. We'll place a infectious disease consultation. We'll be awaiting final pathology from the mediastinal mass. Also, we'll obtain a MRI of the spine as the patient is having motor weakness in the upper extremity bilaterally. The MRI will be needed for possibility of a cord compression. The patient's pacemaker is MRI compatible.
--- NOTE | 2022-04-27 18:08 | CT ---
EXAMINATION TYPE: CT CervThoracic spine wo con DATE OF EXAM: 04/27/2022 COMPARISON: PET CT scan 04/13/2022 HISTORY: concern for spinal cord compression CT DLP: 1585.6 mGycm Automated exposure control for dose reduction was used. Images obtained from the skull base to the L1 vertebra with no contrast. There is a thoracolumbar mild levoscoliosis. There is extensive coarse infiltrate in the right lung. There is irregular right pleural effusion. There is small left pleural effusion. There are destructiv e lesions involving the T2 and T3 and T4 vertebral bodies anteriorly. There is large posterior medias tinal mass adjacent to the destructive lesions that measures 7 x 4 cm. There is evidence of involveme nt of the esophagus. There is anterior displacement of the esophagus. There is T3 compression fractur e of 50%. Spinal canal is not optimally evaluated. There appears to be tumor extension into the spina l canal at the T3 level and 50% narrowing of the spinal canal. The cervical vertebra have normal alignment. No compression fracture. No sign of cervical spinal sten osis. There is mild cervical hypertrophic facet arthropathy. IMPRESSION: Large posterior mediastinal mass with involvement of upper thoracic vertebral bodies and pathologic c ompression fracture of T3. There is evidence for tumor extension into the spinal canal 50% narrowing. Detail is limited. MR scan would be helpful for definitive evaluation of the spinal canal. Bone dest ruction has progressed compared to the recent CT scan of 04/13/2022. Extensive infiltrate in the right lung with pleural thickening.
[2022-04-27] MEDS: ATORVASTATIN 40 MG TAB PO SCH (19:45)
[2022-04-27 20:05] LABS: Glucose,Whole Blood 209 mg/dL (70-110)
--- NOTE | 2022-04-27 23:10 | P.CONS ---
History of Present Illness - Reason for Consult Consult date: 04/27/22 Positive blood culture Requesting physician: Shani Pratt - Chief Complaint Increasing shortness of breath x few days - History of Present Illness Patient is a 76-year-old male with recent diagnosis of lung cancer and the patient was scheduled for bronchoscopy 04/26/2022, patient presenting to the hospital 04/25/2022 for evaluation of weakness and the patient was unable to stand up or get out of the bed patient with complaint of substernal chest pain for the patient with fentanyl patch is also complaining of cough and hemoptysis that has been going on for about 4 months patient denies having any nausea no vomiting no choking on food no abdominal pain or any diarrhea patient on presentation to the hospital was afebrile and no fever has been recorded subsequently patient did have white count 23,000 with a left shift which is down to 17,000 did have elevated BUN/creatinine procalcitonin was elevated at 4.10 urine has been negative COVID testing was negative patient blood cultures growing staph epi as well as gram-negative bacilli patient is currently being treated with the ceftriaxone 2 g daily infectious he was consulted for further management of antibiotic therapy because of his bacteremia Review of Systems Positive point has been mentioned in the HPI rest of the systems are negative Past Medical History Past Medical History: Asthma, Cancer, Chest Pain / Angina, GERD/Reflux, Hearing Disorder / Deafness, Hyperlipidemia, Hypertension, Osteoarthritis (OA), Prostate Disorder, Renal Disease, Respiratory Disorder Additional Past Medical History / Comment(s): SKIN CA LT ARM. HEART MURMUR, hx AORTIC STENOSIS. Varicose Veins. 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 Colonoscopy. NECK GLAND BIOPSY. BRONCH, LUNG biopsy. TVAR aortic valve replacement 2019, skin cancer removed left arm, Past Anesthesia/Blood Transfusion Reactions: No Reported Reaction Type of Cardiac Device: Permanent Pacemaker Device Placement Date:: 2019 [employer] Past Psychological History: No Psychological Hx Reported Smoking Status: Former smoker Past Alcohol Use History: None Reported Additional Past Alcohol Use History / Comment(s): STARTED SMOKING AT AGE 16, QUIT IN 1973, SMOKED 3PPD Past Drug Use History: None Reported - Past Family History Sister(s) Family Medical History: Deep Vein Thrombosis (DVT) Additional Family Medical History / Comment(s): . Mother Family Medical History: Cancer Additional Family Medical History / Comment(s): BRAIN CA, COLON CA Medications and Allergies Home Medications Medication Instructions Recorded Confirmed Type Budesonide-Formot 160-4.5 Mcg 2 puff INHALATION RT-BID 10/08/17 04/25/22 History [Symbicort 160-4.5 Mcg Inhaler] amLODIPine BESYLATE 5 mg PO DAILY 12/04/18 04/25/22 History Turmeric Root Extract [Turmeric] 500 mg PO DAILY 12/22/19 04/25/22 History Apixaban [Eliquis] 5 mg PO BID 02/26/22 04/25/22 History Atorvastatin Calcium [Lipitor] 40 mg PO HS 02/26/22 04/25/22 History Metoprolol Succinate [Toprol XL] 50 mg PO DAILY 02/26/22 04/25/22 History Omeprazole 20 mg PO BID 02/26/22 04/25/22 History [place] Concentrate 1 dose PO DAILY PRN 02/26/22 04/25/22 History Torsemide [Demadex] 20 mg PO DAILY 02/26/22 04/25/22 History Losartan Potassium [Cozaar] 50 mg PO DAILY 30 Days #15 tab 02/27/22 04/25/22 Rx Albuterol Inhaler [Ventolin Hfa 1 - 2 puff INHALATION RT-Q6H PRN 04/24/22 04/25/22 History Inhaler] Lactulose 10 gm PO DAILY 04/24/22 04/25/22 History fentaNYL [Duragesic 37.5 MCG/HR] 1 patch TRANSDERM Q72H 04/24/22 04/25/22 History oxyCODONE-APAP 10-325MG [Percocet 1 tab PO Q6HR 04/24/22 04/25/22 History 10-325 mg] Acetaminophen Tab [Tylenol Tab] 1,000 mg PO Q6H PRN 04/25/22 04/25/22 History Allergies Allergy/AdvReac Type Severity Reaction Status Date / Time amoxicillin trihydrate Allergy Rash/Hives Verified 04/25/22 17:30 [From Augmentin] clindamycin Allergy Rash/Hives Verified 04/25/22 17:30 ibuprofen Allergy Rash/Hives Verified 04/25/22 17:30 potassium clavulanate Allergy Rash/Hives Verified 04/25/22 17:30 [From Augmentin] ragweed pollen AdvReac SINUS Verified 04/25/22 17:30 PROBLEMS Physical Exam Vitals: Vital Signs Temp Pulse Pulse Resp BP Pulse Ox FiO2 04/27/22 08:21 76 04/27/22 08:06 88 04/27/22 08:00 97.7 F 68 16 115/65 94 L 04/27/22 04:00 97.5 F L 82 18 107/56 97 04/27/22 00:00 97.7 F 77 18 131/63 96 04/26/22 20:27 92 04/26/22 20:14 90 04/26/22 20:00 98.1 F 90 19 124/60 93 L 04/26/22 18:00 95 04/26/22 16:30 50 04/26/22 16:00 60 18 106/57 100 04/26/22 13:49 50 Intake and Output 04/26/22 04/27/22 04/27/22 22:59 06:59 14:59 Output Total 250 150 Balance -250 -150 Output: Urine 250 150 Other: Voiding Method Indwelling Catheter Indwelling Catheter GENERAL DESCRIPTION: An elderly male lying in bed, no distress. No tachypnea or accessory muscle of respiration use. HEENT: Shows Pallor , no scleral icterus. Oral mucous membrane is dry. No pharyn geal erythema or thrush NECK: Trachea central, no thyromegaly. LUNGS: Unlabored breathing. Coarse breath sounds bilaterally. HEART: S1, S2, regular rate and rhythm. No loud murmur ABDOMEN: Soft, no tenderness , guarding or rigidity, no organomegaly EXTREMITIES: One plus edema of feet. SKIN: No rash, no masses palpable. NEUROLOGICAL: The patient is awake, alert, oriented x3, mood and affect normal. Results CBC & Chem 7: 04/27/22 07:58 04/27/22 07:58 Labs: Abnormal Lab Results - Last 24 Hours (Table) 04/26/22 04/26/22 04/27/22 Range/Units 14:03 14:03 07:58 WBC 19.0 H 17.0 H (3.8-10.6) k/uL RBC 4.17 L (4.30-5.90) m/uL Hgb 12.9 L 11.8 L (13.0-17.5) gm/dL MCHC 30.3 L (31.0-37.0) g/dL Neutrophils # 17.3 H 15.6 H (1.3-7.7) k/uL Lymphocytes # 0.6 L 0.5 L (1.0-4.8) k/uL Sodium 132 L (137-145) mmol/L Chloride 94 L (98-107) mmol/L Carbon Dioxide 34 H (22-30) mmol/L BUN 45 H (9-20) mg/dL Creatinine 1.60 H (0.66-1.25) mg/dL Glucose 126 H (74-99) mg/dL 04/27/22 Range/Units 07:58 WBC (3.8-10.6) k/uL RBC (4.30-5.90) m/uL Hgb (13.0-17.5) gm/dL MCHC (31.0-37.0) g/dL Neutrophils # (1.3-7.7) k/uL Lymphocytes # (1.0-4.8) k/uL Sodium 133 L (137-145) mmol/L Chloride 94 L (98-107) mmol/L Carbon Dioxide 34 H (22-30) mmol/L BUN 49 H (9-20) mg/dL Creatinine 1.47 H (0.66-1.25) mg/dL Glucose 150 H (74-99) mg/dL Microbiology - Last 24 Hours (Table) 04/25/22 18:02 Blood Culture Gram Stain - Preliminary Blood Blood Culture - Preliminary Staphylococcus epidermidis 04/25/22 18:05 Blood Culture Gram Stain - Preliminary Blood 04/25/22 18:05 Blood Culture - Final Blood 04/25/22 18:02 Blood Culture - Final Blood Assessment and Plan (1) Bacteremia Current Visit: Yes Status: Acute Code(s): R78.81 - BACTEREMIA SNOMED Code(s): 7741988 (2) Pneumonia Current Visit: Yes Status: Acute Code(s): J18.9 - PNEUMONIA, UNSPECIFIED ORGANISM SNOMED Code(s): 599163769 Plan: 1patient with positive blood culture with staph epi likely skin contamination. 2patient with gram-negative bacteremia source could be likely pneumonia in this patient do have underlying lung cancer and did have significant respiratory symptoms patient urine is negative abdominal submental examination. 3penicillin allergy that would limit number of antibiotics safe to use. 4discontinue Rocephin. 5start the patient cefepime 2 g every 8 hour and blood cultures will be repeated document clearance of bacteremia. We will follow on clinical condition and cultures to further adjust medication if needed Thank you for this consultation will follow this patient along with you
[2022-04-27] MEDS: CEFEPIME 2 GM in SODIUM CHLORIDE 0.9% 100 ML IVPB SCH (23:28)
--- NOTE | 2022-04-28 01:31 | CT ---
EXAMINATION TYPE: CT brain wo con DATE OF EXAM: 04/28/2022 COMPARISON: None HISTORY: CONFUSION CT DLP: 1223.4 mGycm Automated exposure control for dose reduction was used. Images obtained of the brain with no contrast. There is cerebral atrophy. There is no mass effect or midline shift. No sign of intracranial hemorrha ge. Calvarium is intact. No evidence of cerebral edema. Spill base is intact. There is normal aeratio n of the mastoid sinuses. IMPRESSION: Negative CT scan of the brain. Mild atrophy.
[2022-04-28] MEDS: oxyCODONE-APAP 10-325MG 1 EACH TAB PO PRN (04:11)
[2022-04-28 06:16] LABS: Glucose,Whole Blood 256 mg/dL (70-110)
[2022-04-28] MEDS: methylPREDNISolone SOD SUCCI 125 MG/2 ML VIAL IV SCH ×4 (06:42→23:16)
[2022-04-28] MEDS: PANTOPRAZOLE 40 MG TABLET PO SCH (06:43)
[2022-04-28] MEDS: INSULIN ASPART (NovoLOG) 100 UNIT/ML VIAL SQ SCH ×4 (07:02→19:52)
[2022-04-28] MEDS: SYMBICORT 160-4.5 MCG INHALER INHALATION SCH ×2 (08:27→20:13)
[2022-04-28] MEDS: IPRATROPIUM-ALBUTEROL 3 ML NEB INHALATION SCH ×4 (08:27→20:13)
[2022-04-28] MEDS: LACTULOSE 20 GM/30 ML CUP PO SCH (09:06)
[2022-04-28] MEDS: amLODIPine 5 MG TAB PO SCH (09:06)
[2022-04-28] MEDS: METOPROLOL SUCCINATE (ER) 50 MG TAB.ER.24H PO SCH (09:06)
[2022-04-28] MEDS: CEFEPIME 2 GM in SODIUM CHLORIDE 0.9% 100 ML IVPB SCH ×2 (09:07→19:53)
--- NOTE | 2022-04-28 11:50 | P.PN ---
Subjective Progress Note Date: 04/28/22 76-year-old male patient, presented to the emergency feeling quite weak and debilitated. The patient was becoming weaker, more somnolent and he was having ongoing issues with hemoptysis. Note that the patient was noted to have a lung mass and the patient was supposed to have a outpatient bronchoscopy today. The patient ended up checking himself to the hospital and he was admitted accordingly. The patient is known to have a remote history of question sarcoidosis. He is known to have COPD. Is a known ex-smoker. The patient had a CAT scan of the chest that was done on 03/16/2022. A CAT scan was done and the patient was coughing of blood and he was having pain in his mid upper back/posterior chest area. The patient was found to have a 6 x 5 x 5 cm right paramedline posterior mediastinal mass which was ill-defined in terms of its margin and was associated with a 2 cm right anterolateral direct invasion of the T2 vertebral body. The mass was abutting and anterior displacing the trachea. A PET scan was done and the patient was found to have intense metabolic uptake within the destructive mediastinal mass consistent with neoplasm. Note that the patient also has heart disease. The patient undergone a previous TAVR procedure for severe aortic stenosis. The patient was also given a pacemaker following the procedure and this procedure was done back in 2019. As chronic stage III ki dney disease. At this point in time, the patient is coming comfortable. No cervical shortness of breath. He is on 3 L of oxygen nasal cannula with a pulse ox of 98% and a chest x-ray was done today showed patchy by the pulmonary infiltrates with marked soft tissue prominence in the right paratracheal region consistent with a mediastinal mass. The patient's white cell count was at 23 with a hemoglobin of 12, normal correlation profile, creatinine of 1.7 with a mean of 35. ProBNP level was 606 140 with a minimal troponin leak of 0.119. EKG was showing a paced rhythm. The patient is seen today 04/27/2022 in follow-up on the selective care unit. He is currently awake and alert in no acute distress. He has a loose nonproductive cough. Maintaining saturations in the mid 90s on 3 L/m per nasal cannula. He has some complaints of upper extremity weakness. Blood culture is positive for gram-negative bacilli sputum culture pending. White count 17.0. Hemoglobin 11.8. Sodium 133. Potassium 4.5. BUN 4. Creatinine 1.47. Glucose 150. He did undergo EBUS bronchoscopy with FNA of the superior mediastinal mass. Pathology is pending. He remains on DuoNeb inhalations, Symbicort, a ntibiotics in the form of ceftriaxone. On today's evaluation of 04/28/2022, the patient seems to be in a very bad moods. He feels that he is not going to recover from his condition. He continues to have pain in his upper back and some ongoing weakness in upper extremities bilaterally. He is able to ambulate. Note that the patient has a mediastinal mass that was biopsied and the results are still pending for now. Meanwhile, CAT scan of the C-spine showed a large posterior mediastinal mass with involvement of the upper thoracic vertebral bodies and pathologic fracture/compression fracture of the T3 spine. There is also evidence of tumor extension into the spinal canal with 50% narrowing. MRI was not performed as the patient's pacemaker is not compatible with MRI machine. CAT scan of the brain was essentially negative. The pathologic results from the EBUS and needle aspirate is still pending for now. He is still covered with a common issue bronchodilators and steroids. He is also on broad-spectrum antibiotics. No blood work from today. Blood sugar slightly elevated related to his steroid intake. The pro calcitonin level is at 4.1. Creatinine is 1.47 from yesterday . At the same time, the patient's blood cultures positive for gram-negative bacillus and the patient is currently on IV cefepime. The patient is bacteremic. Could be related to pneumonia. Final cultures sensitivities are still pending for now. Objective - Vital Signs Vital signs: Vital Signs Temp 97.4 F L 04/28/22 08:00 Pulse 72 04/28/22 08:43 Resp 20 04/28/22 08:00 BP 123/69 04/28/22 08:00 Pulse Ox 96 04/28/22 08:29 FiO2 50 04/26/22 16:30 Intake & Output 04/27/22 04/28/22 04/28/22 18:59 06:59 18:59 Intake Total 240 Output Total 850 550 Balance -850 -550 240 Intake: Oral 240 Output: Urine 850 550 Other: Voiding Method Indwelling Catheter Indwelling Catheter - Exam Gen. appearance: A pleasant 76-year-old male patient, on 3 L nasal cannula, the patient is comfortable no acute distress, is complaining of some upper extremity weakness Head exam was generally normal. There was no scleral icterus or corneal arcus. Mucous membranes were moist. Neck was supple and without jugular venous distension, thyromegaly, or carotid bruits. Carotids were easily palpable bilaterally. There was no adenopathy. Lungs sounds are diminished and patient has scattered rhonchi and scattered expiratory wheezes without the lung his bilaterally and the patient has a pacemaker pocket over the left anterior chest area. Cardiac exam revealed the PMI to be normally situated and sized. The rhythm was regular and no extrasystoles were noted during several minutes of auscultation. The first and second heart sounds were normal and physiologic splitting of the second heart sound was noted. There was a systolic ejection murmur grade 3/6 in the precordium, rubs, clicks, or gallops. Abdominal exam revealed normal bowel sounds. The abdomen was soft, non-tender, and without masses, organomegaly, or appreciable enlargement of the abdominal aorta. Examination of the extremities revealed easily palpable radial, femoral and pedal pulses. There was no cyanosis, clubbing or edema. Examination of the skin revealed no evidence of significant rashes, suspicious appearing nevi or other concerning lesions. - Labs CBC & Chem 7: 04/27/22 07:58 04/27/22 07:58 Labs: Abnormal Lab Results - Last 24 Hours (Table) 04/27/22 04/27/22 04/28/22 Range/Units 12:08 20:03 06:13 POC Glucose (mg/dL) 209 H 256 H (70-110) mg/dL Procalcitonin 4.10 H (0.02-0.09) ng/mL Microbiology - Last 24 Hours (Table) 04/25/22 20:31 Gram Stain - Final Sputum Sputum Culture - Final 04/25/22 18:02 Blood Culture Gram Stain - Preliminary Blood Blood Culture - Preliminary Staphylococcus epidermidis Gram Neg Bacilli Coagulase Negative Staph 04/25/22 18:05 Blood Culture Gram Stain - Preliminary Blood Blood Culture - Preliminary Gram Neg Bacilli Assessment and Plan Assessment: Hemoptysis, no evidence of endobronchial lesion or bleeding, bronchoscopy revealed no evidence of any tracheal or endobronchial tumors. The patient however has a large posterior superior mediastinal mass Mediastinal mass. The patient is a 6 x 5 x 5 cm posterior superior mediastinal mass, with direct anterolateral invasion of the T2 vertebral body, highly active on PET scan and highly suspicious for tracheal wall invasion posteriorly. This is most likely an underlying malignancy. Status post EBUS bronchoscopy with FNA of the mediastinal mass. Pathology pending Pathologic fracture of the T3 spine and evidence of spine compression in the order of 50%. Please refer to the CAT scan of the cervical spine. The patient has motor weakness in the upper extremities. The patient has no motor weakness in lower extremities. The patient is experiencing back pain. Bacteremia secondary to gram-negative bacilli, awaiting further cultures. The pro-calcitonin level is also elevated and the patient currently remains on IV cefepime. Back pain secondary to above with some upper extremity weakness COPD History aortic valve stenosis with a previous TAVR and a previous pacemaker inse rtion. Echocardiogram from February 2022 showed preserved LV, bioprosthetic aortic valve which is in place and no significant leaks Chronic stage III kidney disease History of sarcoidosis which is currently inactive in stable Troponin leak, nonspecific Acute leukocytosis Plan: The prognosis extremely poor We'll consult spine surgery regarding the pathologic T3 fracture We will consult radiation oncology Awaiting the results of the EBUS and transbronchial needle aspirate of the posterior mediastinal mass Continue IV cefepime The patient has gram-negative bacilli in the blood awaiting final cultures and sensitivities Continue bronchodilators and steroids Unable to do an MRI of the spine because of pacemaker and incompatibility A poor prognosis based on above. We'll continue to follow.
[2022-04-28 12:00] LABS: Glucose,Whole Blood 218 mg/dL (70-110)
--- NOTE | 2022-04-28 12:31 | P.CNNES ---
History of Present Illness Consult date: 04/28/22 Requesting physician: Jenn David Reason for Consult: lethargy and confusion History of Present Illness: This is a 76-year-old gentleman with history of sarcoidosis, chronic stage III kidney disease, aortic valve stenosis with previous TAVR and pacemaker, COPD who presented emergency department with generalized weakness, hemoptysis and somnolent. Neurology is consulted for lethargy and confusion. Some of the history is obtained from his and nurse. Per the nurse yesterday at night it seems he was confused but today no confusion The patient stated he is not confused and neither did his . The patient had CT scan on 03/16/2022 of chest noted to have a lung mass was supposed to get outpatient bronchoscopy as an outpatient but because of his symptoms he came to the hospital. It seems the patient was found to have 6 x 5 x 5 cm right paramedian posterior mediastinal mass that was ill-defined in terms of its margins associate with 2 cm right anterior lateral direct invasion of the T2 vertebral body. A PET scan was done and the patient was found to have intense metabolic uptake within the destruc tive mediastinal mass consistent with neoplasm. His blood cultures were positive for gram-negative bacilli sputum. He did undergo EBUS bronchoscopy with FNA of superior mediastinal mass. Pathology is pending. He is currently on Ceftriaxone. According to the patient nurse the patient has been somnolent lethargic and the with verbal stimuli he'll be awake responding the needle go back to sleep. No seizure-like activity is noted. Some of the other workup during his hospital visit consisted of: CT of the head is reported as negative CT scan of the brain. Mild atrophy. I personally reviewed the CT head and I agree with the report. The cervical and thoracic spine is reported as large posterior mediastinal mass with involvement of the upper thoracic vertebral bodies and pathological compr ession fracture of T3. There is evidence for tumor extension into the spinal canal 50% narrowing. MRI scan would be helpful for degenerative evaluation of the spinal canal. Bone destruction has progressed compared to the recent CT scan on the 04/13/2022 Initial white blood cell is 23,000 and currently is 17,000 at predominantly neutrophilic Initial creatinine is 1.72 and BUN is 35 and most current Calcium is 10.0 AST 16 ALT is the 11. Webb virus PCR was not detected Review of Systems Review of system: The 12 point system was reviewed and apparent positive and negative per HPI. Past Medical History Past Medical History: Asthma, Cancer, Chest Pain / Angina, GERD/Reflux, Hearing Disorder / Deafness, Hyperlipidemia, Hypertension, Osteoarthritis (OA), Prostate Disorder, Renal Disease, Respiratory Disorder Additional Past Medical History / Comment(s): SKIN CA LT ARM. HEART MURMUR, hx AORTIC STENOSIS. Varicose Veins. 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 Colonoscopy. NECK GLAND BIOPSY. BRONCH, LUNG biopsy. TVAR aortic valve replacement 2019, skin cancer removed left arm, Past Anesthesia/Blood Transfusion Reactions: No Reported Reaction Type of Cardiac Device: Permanent Pacemaker Device Placement Date:: 2019 [employer] Past Psychological History: No Psychological Hx Reported Smoking Status: Former smoker Past Alcohol Use History: None Reported Additional Past Alcohol Use History / Comment(s): STARTED SMOKING AT AGE 16, QUIT IN 1973, SMOKED 3PPD Past Drug Use History: None Reported - Past Family History Sister(s) Family Medical History: Deep Vein Thrombosis (DVT) Additional Family Medical History / Comment(s): . Mother Family Medical History: Cancer Additional Family Medical History / Comment(s): BRAIN CA, COLON CA Medications and Allergies Home Medications Medication Instructions Recorded Confirmed Type Budesonide-Formot 160-4.5 Mcg 2 puff INHALATION RT-BID 10/08/17 04/25/22 History [Symbicort 160-4.5 Mcg Inhaler] amLODIPine BESYLATE 5 mg PO DAILY 12/04/18 04/25/22 History Turmeric Root Extract [Turmeric] 500 mg PO DAILY 12/22/19 04/25/22 History Apixaban [Eliquis] 5 mg PO BID 02/26/22 04/25/22 History Atorvastatin Calcium [Lipitor] 40 mg PO HS 02/26/22 04/25/22 History Metoprolol Succinate [Toprol XL] 50 mg PO DAILY 02/26/22 04/25/22 History Omeprazole 20 mg PO BID 02/26/22 04/25/22 History [place] Concentrate 1 dose PO DAILY PRN 02/26/22 04/25/22 History Torsemide [Demadex] 20 mg PO DAILY 02/26/22 04/25/22 History Losartan Potassium [Cozaar] 50 mg PO DAILY 30 Days #15 tab 02/27/22 04/25/22 Rx Albuterol Inhaler [Ventolin Hfa 1 - 2 puff INHALATION RT-Q6H PRN 04/24/22 04/25/22 History Inhaler] Lactulose 10 gm PO DAILY 04/24/22 04/25/22 History fentaNYL [Duragesic 37.5 MCG/HR] 1 patch TRANSDERM Q72H 04/24/22 04/25/22 History oxyCODONE-APAP 10-325MG [Percocet 1 tab PO Q6HR 04/24/22 04/25/22 History 10-325 mg] Acetaminophen Tab [Tylenol Tab] 1,000 mg PO Q6H PRN 04/25/22 04/25/22 History Allergies Allergy/AdvReac Type Severity Reaction Status Date / Time amoxicillin trihydrate Allergy Rash/Hives Verified 04/25/22 17:30 [From Augmentin] clindamycin Allergy Rash/Hives Verified 04/25/22 17:30 ibuprofen Allergy Rash/Hives Verified 04/25/22 17:30 potassium clavulanate Allergy Rash/Hives Verified 04/25/22 17:30 [From Augmentin] ragweed pollen AdvReac SINUS Verified 04/25/22 17:30 PROBLEMS Physical Examination - Vital Signs Vital Signs: Vital Signs Temp Pulse Pulse Resp BP BP Pulse Ox 04/28/22 08:43 72 04/28/22 08:29 78 96 04/28/22 08:00 97.4 F L 76 20 123/69 95 04/28/22 04:00 97.4 F L 70 20 136/73 95 04/28/22 00:00 97.5 F L 68 20 123/70 96 04/27/22 20:00 97.5 F L 91 24 120/69 96 04/27/22 19:56 70 04/27/22 19:41 68 04/27/22 18:00 95 04/27/22 16:00 62 18 120/69 95 07/22/22 15:56 70 04/27/22 15:45 72 04/27/22 14:00 60 18 04/27/22 12:00 60 18 106/60 95 Intake and Output 04/27/22 04/28/22 04/28/22 22:59 06:59 14:59 Intake Total 240 Output Total 700 550 Balance -700 -550 240 Intake: Oral 240 Output: Urine 700 550 Other: Voiding Method Indwelling Catheter Indwelling Catheter Indwelling Catheter GENERAL: The patient is sitting in a recliner chair not in acute distress. CHEST: The heart rate is regular rate rhythm. No murmurs to auscultation. LUNG: Clear to auscultation bilaterally no wheezing noted throughout. Not labored breathing. ABDOMEN/GI: Bowel sounds present in all 4 quadrants. No tenderness to palpation throughout. RESPIRATORY: Has wheeze and rhonci Cardiac: +ve murmur. Swelling lowers. INTEGUMENTARY: No discoloration of skin in lowers. NEUROLOGICAL: Higher mental function: The patient is awake, alert, oriented to self, place and time. Patient is following commands. No aphasia and no neglect. Cranial nerves: The pupils are round, equal and reactive to light and accommodation. Visual teresa are full to confrontation throughout. Extraocular movement is intact no nystagmus is noted. Facial sensation is normal to touch throughout. The facial strength is normal throughout. Hearing is moderately decreased bilaterally to hand rub. Tongue is midline and moved [id number] without any difficulty. No dysarthria is noted. Shoulder shrug is normal bilaterally. Motor: The strength is 5 over 5 throughout. Normal tone and bulk. Cerebellum: Normal finger to nose bilaterally. Sensation: Sensation is normal to touch throughout. Reflexes (right/left): 1+ throughout. Plantars are mute bilaterally. Results - Laboratory Findings CBC and BMP: 04/27/22 07:58 04/27/22 07:58 Abnormal Lab Findings: Abnormal Labs 04/25/22 04/25/22 04/25/22 14:07 14:07 14:07 WBC 23.0 H RBC 4.07 L Hgb 12.0 L Hct 37.2 L MCHC Neutrophils # 21.5 H Lymphocytes # 0.5 L PT 12.1 H APTT 30.2 H Sodium Chloride Carbon Dioxide BUN Creatinine Glucose POC Glucose (mg/dL) AST Troponin I Total Protein Albumin Procalcitonin Urine Protein Trace H Urine Blood Small H Urine RBC 12 H Urine Bacteria Rare H Urine Mucus Rare H 04/25/22 04/25/22 04/26/22 14:07 14:07 14:03 WBC 19.0 H RBC Hgb 12.9 L Hct MCHC Neutrophils # 17.3 H Lymphocytes # 0.6 L PT APTT Sodium 131 L Chloride 92 L Carbon Dioxide 33 H BUN 35 H Creatinine 1.72 H Glucose 132 H POC Glucose (mg/dL) AST 16 L Troponin I 0.119 H* Total Protein 4.9 L Albumin 2.7 L Procalcitonin Urine Protein Urine Blood Urine RBC Urine Bacteria Urine Mucus 04/26/22 04/27/22 04/27/22 14:03 07:58 07:58 WBC 17.0 H RBC 4.17 L Hgb 11.8 L Hct MCHC 30.3 L Neutrophils # 15.6 H Lymphocytes # 0.5 L PT APTT Sodium 132 L 133 L Chloride 94 L 94 L Carbon Dioxide 34 H 34 H BUN 45 H 49 H Creatinine 1.60 H 1.47 H Glucose 126 H 150 H POC Glucose (mg/dL) AST Troponin I Total Protein Albumin Procalcitonin Urine Protein Urine Blood Urine RBC Urine Bacteria Urine Mucus 04/27/22 04/27/22 04/28/22 12:08 20:03 06:13 WBC RBC Hgb Hct MCHC Neutrophils # Lymphocytes # PT APTT Sodium Chloride Carbon Dioxide BUN Creatinine Glucose POC Glucose (mg/dL) 209 H 256 H AST Troponin I Total Protein Albumin Procalcitonin 4.10 H Urine Protein Urine Blood Urine RBC Urine Bacteria Urine Mucus Assessment and Plan Assessment: Delerium: Possibly due to multifactorial: Hospital induced, medications (steroids) and has sun downing--currently oriented X4 and no focal deficits. Mediastinal mass in the superior region concerning for underlying malignancy. Has tracheal wall invasion and invasion of T2 vertebral body. Had bronchoscopy and pending pathology. Back pain due to above Bacteremia secondary due to gram-negative bacilli Hemoptysis due to the lung mass. acute on chronic stage III disease--trending down History of sarcoidosis History of aortic valve stenosis with previous TAVR and pacemaker COPD Plan: I spoke with the patient and his and they don't feel the patient is confused and currently the patient does not have any confusion. If he does have any further confusion will consider getting routine EEG. For now the patient's do not want to pursue with the EEG. We'll hold off on getting any additional lab tests as well. Cannot obtain MRI of the brain since the patient has a pacemaker Infection disease is on board Pulmonary team is on board Orthopedic team is on board for T3 distraction We'll defer the rest of the medical measure the primary team The plan is discussed with the patient, his was at bedside and his nurse. Thank you for the consultation. Austen Owens M.D. Neuro-hospital Time with Patient: Greater than 30
[2022-04-28 16:54] LABS: Glucose,Whole Blood 253 mg/dL (70-110)
--- NOTE | 2022-04-28 17:21 | P.PN ---
Subjective Progress Note Date: 04/28/22 Principal diagnosis: Bacteremia Patient is a 76 year old male with a recent diagnosis of lung cancer has not received any chemo presenting to the hospital with weakness unable to stand up or get out of the bed patient did have positive blood culture with gram-negative bacilli. On today's evaluation that is 04/28/2022, the patient is afebrile, the patient complaining of weakness, the patient denies having any chest pain could have a cough with occasional sputum and hemoptysis denies any abdominal pain and did have some diarrhea Objective - Vital Signs Vital signs: Vital Signs Temp 97.5 F L 04/28/22 12:00 Pulse 71 04/28/22 16:44 Resp 14 04/28/22 16:44 BP 127/61 04/28/22 12:00 Pulse Ox 97 04/28/22 16:32 FiO2 50 04/26/22 16:30 Intake & Output 04/27/22 04/28/22 04/28/22 18:59 06:59 18:59 Intake Total 580 Output Total 564 029 1804 Balance -850 550 -620 Intake: Intake, IV Titration 100 Amount Cefepime 2 gm In Sodium 100 Chloride 0.9% 100 ml @ 25 mls/hr IVPB Q12HR [facility] Rx #:[id number] Oral 480 Output: Urine [phone] Other: Voiding Method Indwelling Catheter Indwelling Catheter - Exam GENERAL DESCRIPTION: An elderly male up in the chair in no distress RESPIRATORY SYSTEM: Unlabored breathing , decreased breath sounds at bases HEART: S1 S2 regular rate and rhythm , ABDOMEN: Soft , no tenderness EXTREMITIES: No edema feet - Labs CBC & Chem 7: 04/27/22 07:58 04/27/22 07:58 Labs: Abnormal Lab Results - Last 24 Hours (Table) 04/27/22 04/27/22 04/28/22 Range/Units 12:08 20:03 06:13 POC Glucose (mg/dL) 209 H 256 H (70-110) mg/dL Procalcitonin 4.10 H (0.02-0.09) ng/mL 04/28/22 04/28/22 Range/Units 11:53 16:49 POC Glucose (mg/dL) 218 H 253 H (70-110) mg/dL Procalcitonin (0.02-0.09) ng/mL Microbiology - Last 24 Hours (Table) 04/27/22 12:08 Blood Culture - Preliminary Blood No Growth after 24 hours 04/27/22 12:13 Blood Culture - Preliminary Blood No Growth after 24 hours 04/25/22 20:31 Gram Stain - Final Sputum Sputum Culture - Final 04/25/22 18:02 Blood Culture Gram Stain - Preliminary Blood Blood Culture - Preliminary Staphylococcus epidermidis Gram Neg Bacilli Coagulase Negative Staph 04/25/22 18:05 Blood Culture Gram Stain - Preliminary Blood Blood Culture - Preliminary Gram Neg Bacilli Assessment and Plan (1) Bacteremia Current Visit: Yes Status: Acute Code(s): R78.81 - BACTEREMIA SNOMED Code(s): 4444186 (2) Pneumonia Current Visit: Yes Status: Acute Code(s): J18.9 - PNEUMONIA, UNSPECIFIED ORGANISM SNOMED Code(s): 028507213 Plan: 1patient with positive blood culture with staph epi likely skin contamination. 2patient with gram-negative bacteremia source could be likely pneumonia in this patient do have underlying lung cancer and did have significant respiratory symptoms patient urine is negative abdominal was soft on examination. 3penicillin allergy that would limit number of antibiotics safe to use. 4patient to continue cefepime 2 g every 8 hour while waiting for cultures to finalize and blood cultures repeated so far negative Time with Patient: Less than 30
[2022-04-28] MEDS: ATORVASTATIN 40 MG TAB PO SCH (19:52)
[2022-04-28 20:10] LABS: Glucose,Whole Blood 202 mg/dL (70-110)
[2022-04-29 06:01] LABS: Glucose,Whole Blood 217 mg/dL (70-110)
[2022-04-29] MEDS: PANTOPRAZOLE 40 MG TABLET PO SCH (06:43)
[2022-04-29] MEDS: INSULIN ASPART (NovoLOG) 100 UNIT/ML VIAL SQ SCH ×4 (06:43→20:19)
[2022-04-29] MEDS: methylPREDNISolone SOD SUCCI 125 MG/2 ML VIAL IV SCH ×4 (06:45→23:18)
[2022-04-29] MEDS: IPRATROPIUM-ALBUTEROL 3 ML NEB INHALATION SCH ×4 (07:57→19:25)
[2022-04-29] MEDS: SYMBICORT 160-4.5 MCG INHALER INHALATION SCH ×2 (07:57→19:25)
[2022-04-29] MEDS: CEFEPIME 2 GM in SODIUM CHLORIDE 0.9% 100 ML IVPB SCH ×2 (09:11→20:21)
[2022-04-29] MEDS: LACTULOSE 20 GM/30 ML CUP PO SCH (09:11)
[2022-04-29] MEDS: amLODIPine 5 MG TAB PO SCH (09:11)
[2022-04-29] MEDS: METOPROLOL SUCCINATE (ER) 50 MG TAB.ER.24H PO SCH (09:11)
[2022-04-29 11:42] LABS: Glucose,Whole Blood 206 mg/dL (70-110)
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
--- NOTE | 2022-04-29 11:57 | P.CNOR ---
History of Present Illness - [facility] Consult date: 04/29/22 Requesting physician: Hannah العراقي Consult reason: other (Mediastinal mass with destructive lesions involving T2, T3, and T4 ) History of present illness: Patient is a very pleasant 76-year-old male who is seen and examined at bedside for further evaluation of his thoracic spine after CT imaging showed evidence of destructive lesions involving T2, T3, and T4 with expansion to the spinal cord at T3. Patient was just recently diagnosed with a large posterior mediastinal m ass which involves the upper thoracic vertebral bodies as well as the esophagus. Patient just became aware of the significance of the large posterior mass yesterday. Patient states at the bedside his pain is most significant at the upper thoracic spine posteriorly. He does mid to some difficulty with ambulation mobilization. He feels generally weak throughout his body. He states he has had difficulty with mobility for several months. He is not currently complaining of any significant lower extremity pain. Patient is being seen by multiple medical providers including medicine, infectio us disease, neurology and pulmonology. Patient has multiple significant medical diagnoses. Patient has a history of coughing up blood over the past 4 months. He has undergone a bronchoscopy with pathology reports pending. He is being seen and treated by infectious disease as well for bacteremia. Consultation has been placed with interventional radiology. Patient has a history of aortic valve stenosis with previous TVAR and pacemaker insertion and is unable to undergo MRI imaging. Past Medical History Past Medical History: Asthma, Cancer, Chest Pain / Angina, GERD/Reflux, Hearing Disorder / Deafness, Hyperlipidemia, Hypertension, Osteoarthritis (OA), Prostate Disorder, Renal Disease, Respiratory Disorder Additional Past Medical History / Comment(s): SKIN CA LT ARM. HEART MURMUR, hx AORTIC STENOSIS. Varicose Veins. 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 Colonoscopy. NECK GLAND BIOPSY. BRONCH, LUNG biopsy. TVAR aortic valve replacement 2019, skin cancer removed left arm, Past Anesthesia/Blood Transfusion Reactions: No Reported Reaction Type of Cardiac Device: Permanent Pacemaker Device Placement Date:: 2019 [employer] Past Psychological History: No Psychological Hx Reported Smoking Status: Former smoker Past Alcohol Use History: None Reported Additional Past Alcohol Use History / Comment(s): STARTED SMOKING AT AGE 16, QUIT IN 1973, SMOKED 3PPD Past Drug Use History: None Reported - Past Family History Sister(s) Family Medical History: Deep Vein Thrombosis (DVT) Additional Family Medical History / Comment(s): . Mother Family Medical History: Cancer Additional Family Medical History / Comment(s): BRAIN CA, COLON CA Medications and Allergies Home Medications Medication Instructions Recorded Confirmed Type Budesonide-Formot 160-4.5 Mcg 2 puff INHALATION RT-BID 10/08/17 04/25/22 History [Symbicort 160-4.5 Mcg Inhaler] amLODIPine BESYLATE 5 mg PO DAILY 12/04/18 04/25/22 History Turmeric Root Extract [Turmeric] 500 mg PO DAILY 12/22/19 04/25/22 History Apixaban [Eliquis] 5 mg PO BID 02/26/22 04/25/22 History Atorvastatin Calcium [Lipitor] 40 mg PO HS 02/26/22 04/25/22 History Metoprolol Succinate [Toprol XL] 50 mg PO DAILY 02/26/22 04/25/22 History Omeprazole 20 mg PO BID 02/26/22 04/25/22 History [place] Concentrate 1 dose PO DAILY PRN 02/26/22 04/25/22 History Torsemide [Demadex] 20 mg PO DAILY 02/26/22 04/25/22 History Losartan Potassium [Cozaar] 50 mg PO DAILY 30 Days #15 tab 02/27/22 04/25/22 Rx Albuterol Inhaler [Ventolin Hfa 1 - 2 puff INHALATION RT-Q6H PRN 04/24/22 04/25/22 History Inhaler] Lactulose 10 gm PO DAILY 04/24/22 04/25/22 History fentaNYL [Duragesic 37.5 MCG/HR] 1 patch TRANSDERM Q72H 04/24/22 04/25/22 History oxyCODONE-APAP 10-325MG [Percocet 1 tab PO Q6HR 04/24/22 04/25/22 History 10-325 mg] Acetaminophen Tab [Tylenol Tab] 1,000 mg PO Q6H PRN 04/25/22 04/25/22 History Allergies Allergy/AdvReac Type Severity Reaction Status Date / Time amoxicillin trihydrate Allergy Rash/Hives Verified 04/25/22 17:30 [From Augmentin] clindamycin Allergy Rash/Hives Verified 04/25/22 17:30 ibuprofen Allergy Rash/Hives Verified 04/25/22 17:30 potassium clavulanate Allergy Rash/Hives Verified 04/25/22 17:30 [From Augmentin] ragweed pollen AdvReac SINUS Verified 04/25/22 17:30 PROBLEMS Physical Examination Physical exam: Patient is somewhat sleepy but is arousable and will answer questions Vital signs stable Good chest excursion with deep inspiration and expiration Examination of posterior cervical, thoracic, and lumbar spine reveals skin is intact with no abrasions, lacerations, or bruises; no erythema, purulence or signs of infection Some pain with palpation along the midline of the upper thoracic spine Soft palpable mass to the left of the midline of the upper thoracic spine Mild pain with palpation along the midline of the lumbar spine Dorsiflexion, plantarflexion, and extensor hallucis longus positive sustained bilaterally Patient has difficulty lifting his left lower extremities off the bed No lower extremity hyperreflexia bilaterally Negative Lasegue's test bilaterally No signs or symptoms of DVT; no calf pain No pain with internal and external rotation of the hips bilaterally Neurovascularly intact Results Pertinent studies: CT of the cervical spine and thoracic spine taken on 04/27/2022: Large posterior mediastinal mass with involvement of the upper thoracic vertebral bodies with apparent tumor extension into the spinal canal with approximately 50% narrowing with evidence of involvement of the esophagus with anterior displacement of esophagus with destructive lesions involving T2, T3, and T4 vertebral bodies anteriorly; extensive infiltrate in the right lung with pleural thickening with irregular right pleural effusion - Labs Labs: Abnormal Lab Results - Last 24 Hours (Table) 04/28/22 04/28/22 04/28/22 Range/Units 11:53 16:49 19:50 POC Glucose (mg/dL) 218 H 253 H 202 H (70-110) mg/dL 04/29/22 04/29/22 Range/Units 05:56 11:36 POC Glucose (mg/dL) 217 H 206 H (70-110) mg/dL Microbiology - Last 24 Hours (Table) 04/25/22 18:05 Blood Culture Gram Stain - Final Blood Blood Culture - Final Pasteurella multocida 04/25/22 18:02 Blood Culture Gram Stain - Final Blood Blood Culture - Final Staphylococcus epidermidis Pasteurella multocida Coagulase Negative Staph 04/27/22 12:08 Blood Culture - Preliminary Blood No Growth after 24 hours 04/27/22 12:13 Blood Culture - Preliminary Blood No Growth after 24 hours 04/25/22 20:31 Gram Stain - Final Sputum Sputum Culture - Final H & H 04/25/22 04/26/22 04/27/22 Range/Units 14:07 14:03 07:58 Hgb 12.0 L 12.9 L 11.8 L (13.0-17.5) gm/dL Hct 37.2 L 41.7 39.0 (39.0-53.0) % Coagulation 04/25/22 Range/Units 14:07 INR 1.1 (<1.2) Result Diagrams: 04/27/22 07:58 04/27/22 07:58 Assessment and Plan Assessment: Assessment: Upper thoracic back pain Low back pain Destructive lesions involving T2, T3, and T4 Apparent tumor extension into the spinal canal at T3 with approximately 50% narrowing Large posterior mediastinal mass involving upper thoracic vertebral bodies and esophagus Hemoptysis Bacteremia COPD History of aortic valve stenosis with previous TVAR and pacemaker insertion Acute leukocytosis History of sarcoidosis Chronic stage III kidney disease (1) Mass of mediastinum Current Visit: Yes Status: Acute Code(s): J98.59 - OTHER DISEASES OF MEDIASTINUM, NOT ELSEWHERE CLASSIFIED SNOMED Code(s): 69894295 (2) Thoracic back pain Current Visit: Yes Status: Acute Code(s): M54.6 - PAIN IN THORACIC SPINE SNOMED Code(s): 694904733 (3) Low back pain Current Visit: Yes Status: Acute Code(s): M54.50 - LOW BACK PAIN, UNSPECIFIED SNOMED Code(s): 925406163 (4) Bone destruction Current Visit: Yes Status: Acute Code(s): M89.8X9 - OTHER SPECIFIED DISORDERS OF BONE, UNSPECIFIED SITE SNOMED Code(s): 05788354 (5) Hemoptysis Current Visit: Yes Status: Acute Code(s): R04.2 - HEMOPTYSIS SNOMED Code(s): 27712115 (6) COPD (chronic obstructive pulmonary disease) Current Visit: Yes Status: Acute Code(s): J44.9 - CHRONIC OBSTRUCTIVE PULMONARY DISEASE, UNSPECIFIED SNOMED Code(s): 91465244 (7) Leukocytosis Current Visit: Yes Status: Acute Code(s): D72.829 - ELEVATED WHITE BLOOD CELL COUNT, UNSPECIFIED SNOMED Code(s): 942746604 (8) History of sarcoidosis Current Visit: Yes Status: Acute Code(s): Z86.2 - PRSNL HISTORY OF DIS OF TH E BLD/BLD-FORM ORG/IMMUN [facility] SNOMED Code(s): 331315616 (9) Chronic kidney disease, stage III (moderate) Current Visit: Yes Status: Acute Code(s): N18.30 - CHRONIC KIDNEY DISEASE, STAGE 3 UNSPECIFIED SNOMED Code(s): 010706202 (10) Pacemaker Current Visit: Yes Status: Acute Code(s): Z95.0 - PRESENCE OF CARDIAC PACEMAKER SNOMED Code(s): 155470914 (11) History of aortic valve stenosis Current Visit: Yes Status: Acute Code(s): Z86.79 - PERSONAL HISTORY OF OTHER DISEASES OF THE CIRCULATORY SYSTEM SNOMED Code(s): 699313767 (12) Bacteremia Current Visit: Yes Status: Acute Code(s): R78.81 - BACTEREMIA SNOMED Code(s): 2269014 Plan: Plan: 1. Large posterior mediastinal mass with involvement of the upper thoracic vertebral bodies with apparent tumor extension into the spinal canal with approximately 50% narrowing with evidence of involvement of the esophagus with anterior displacement of esophagus with destructive lesions involving T2, T3, and T4 vertebral bodies anteriorly with extension into the spinal canal at T3. Patient has just recently learned of the extent of this mass. We did discuss in detail that this mass does involve the vertebral bodies of T2, T3, and T4 as well with apparent extension into the spinal canal at T3. We did discuss that given the size and the significant involvement of this mass that if the patient were to proceed forward with surgical intervention he should be transferred to a tertiary facility as surgical intervention would be significant and could require multiple surgeons and possibly multiple surgical interventions for resection of the mass. Patient states at the bedside he does not wish to currently have any invasive treatment in this regard. He does not currently want transferred as he does not currently wish to have surgical intervention in regards to the mediastinal mass involving the spinal cord and his thoracic spine. We did discuss he could benefit with TEMPLATE CUTTER bracing to help provide some stability at T2, T3, and T4. Patient states he does not want bracing and declines bracing at this time. He states currently he would like to continue with conservative treatment and will discuss a plan of care with his primary care provider as well as other providers in the hospital. [facility] medicine is planning to discuss hospice care with the patient and his family today. At this time, we are not planning for further imaging, testing, or evaluation of the patient. We will plan to see the patient on an as-needed basis. Patient does not currently feel that he would like further treatment or evaluation from an orthopedic spine standpoint at this time. 2. Patient will continue to be seen examined by multiple other medical providers including medicine, infectious disease, pulmonology, and neurology. 3. Consultation has been placed with interventional radiology. Time with Patient: Greater than 30 (Including obtaining history, physical examination, reviewing of imaging, and dictation.)
--- NOTE | 2022-04-29 14:24 | P.PN ---
Subjective Progress Note Date: 04/29/22 Patient is seen at bedside and is accompanied by his . Per the patient's seems that the she was called their early because of patient confusion very late at night. Patient continues to have a coughing episode and has intermittent episodes of hemoptysis. Patient denies of any focal weakness or n umbness or difficulty getting his words out. Objective - Vital Signs Vital signs: Vital Signs Temp 97.6 F 04/29/22 11:50 Pulse 83 04/29/22 11:50 Resp 24 04/29/22 11:50 BP 145/69 04/29/22 11:50 Pulse Ox 95 04/29/22 11:50 FiO2 50 04/26/22 16:30 Intake & Output 04/28/22 04/29/22 04/29/22 18:59 06:59 18:59 Intake Total 698 Output Total 1200 900 800 Balance -502 900 -800 Intake: Intake, IV Titration 100 Amount Cefepime 2 gm In Sodium 100 Chloride 0.9% 100 ml @ 25 mls/hr IVPB Q12HR [facility] Rx #:[id number] Oral 598 Output: Urine 1200 900 800 Uretheral (Crews) 900 400 Other: Voiding Method Indwelling Catheter Indwelling Catheter Indwelling Catheter - Exam GENERAL: The patient is sitting in a recliner chair not in acute distress. LUNG: Lorelei multiple episode of coughs. Not labored breathing. Cardiac: +ve murmur. Swelling lowers. NEUROLOGICAL: Higher mental function: The patient is awake, alert, oriented to self, place and time. Patient is following commands. No aphasia and no neglect. Cranial nerves: The pupils are round, equal and reactive to light and accommodation. Visual teresa are full to confrontation throughout. Extraocular movement is intact no nystagmus is noted. Facial sensation is normal to touch throughout. The facial strength is normal throughout. Hearing is moderately decreased bilaterally to hand rub. Tongue is midline and moved [id number] without any difficulty. No dysarthria is noted. Shoulder shrug is normal bi laterally. Motor: The strength is 5 over 5 throughout. Normal tone and bulk. Cerebellum: Normal finger to nose bilaterally. Sensation: Sensation is normal to touch throughout. Some of the other workup during his hospital visit consisted of: CT of the head is reported as negative CT scan of the brain. Mild atrophy. I personally reviewed the CT head and I agree with the report. The cervical and thoracic spine is reported as large posterior mediastinal mass with involvement of the upper thoracic vertebral bodies and pathological compression fracture of T3. There is evidence for tumor extension into the spinal canal 50% narrowing. MRI scan would be helpful for degenerative ev aluation of the spinal canal. Bone destruction has progressed compared to the recent CT scan on the 04/13/2022 Initial white blood cell is 23,000 and currently is 17,000 at predominantly neutrophilic Initial creatinine is 1.72 and BUN is 35 and most current Calcium is 10.0 AST 16 ALT is the 11. Webb virus PCR was not detected - Labs CBC & Chem 7: 04/27/22 07:58 04/27/22 07:58 Labs: Abnormal Lab Results - Last 24 Hours (Table) 04/28/22 04/28/22 04/29/22 Range/Units 16:49 19:50 05:56 POC Glucose (mg/dL) 253 H 202 H 217 H (70-110) mg/dL 04/29/22 Range/Units 11:36 POC Glucose (mg/dL) 206 H (70-110) mg/dL Microbiology - Last 24 Hours (Table) 04/25/22 18:05 Blood Culture Gram Stain - Final Blood Blood Culture - Final Pasteurella multocida 04/25/22 18:02 Blood Culture Gram Stain - Final Blood Blood Culture - Final Staphylococcus epidermidis Pasteurella multocida Coagulase Negative Staph 04/27/22 12:08 Blood Culture - Preliminary Blood No Growth after 24 hours 04/27/22 12:13 Blood Culture - Preliminary Blood No Growth after 24 hours 04/25/22 20:31 Gram Stain - Final Sputum Sputum Culture - Final Assessment and Plan Assessment: Delerium: Possibly due to multifactorial: Hospital induced, medications (steroids) and has sun downing--currently oriented X4 and no focal deficits. Mediastinal mass in the superior region concerning for underlying malignancy. Has tracheal wall invasion and invasion of T2 vertebral body. Had bronchoscopy and pending pathology. Back pain due to above Bacteremia secondary due to gram-negative bacilli Hemoptysis due to the lung mass. acute on chronic stage III disease--trending down History of sarcoidosis History of aortic valve stenosis with previous TAVR and pacemaker COPD Plan: His episode of confusion are unlikely seizures. But spoke with patient and his and they do not want to pursue with routine EEG. Cannot obtain MRI of the brain since the patient has a pacemaker Infection disease is on board Had bronchoscopy and pending pathology. Pulmonary team is on board Orthopedic team is on board for T3 distraction We'll defer the rest of the medical measure the primary team The wishes to take the patient home. The plan is discussed with the patient, his was at bedside and his nurse. Neurology will sign off. Please reconsult if any additional concerns. Austen Owens M.D. Neuro-hospital Time with Patient: Less than 30
[2022-04-29 16:30] LABS: Glucose,Whole Blood 163 mg/dL (70-110)
--- NOTE | 2022-04-29 17:25 | P.PN ---
Subjective Progress Note Date: 04/29/22 Principal diagnosis: Bacteremia Patient is a 76 year old male with a recent diagnosis of lung cancer has not received any chemo presenting to the hospital with weakness unable to stand up or get out of the bed patient did have positive blood culture with gram-negative bacilli. On today's evaluation that is 04/29/2022, the patient remains to be afebrile, the patient still complaining of some shortness of breath especially on exertion,, the patient continued to have a cough and is being of some purulent sputum, denies any chest pain no abdominal pain and no worsening diarrhea Objective - Vital Signs Vital signs: Vital Signs Temp 98.5 F 04/29/22 16:01 Pulse 80 04/29/22 16:01 Resp 20 04/29/22 16:01 BP 146/77 04/29/22 16:01 Pulse Ox 95 04/29/22 16:01 FiO2 50 04/26/22 16:30 Intake & Output 04/28/22 04/29/22 04/29/22 18:59 06:59 18:59 Intake Total 698 Output Total 1084 159 2509 Balance -502 -900 -1780 Intake: Intake, IV Titration 100 Amount Cefepime 2 gm In Sodium 100 Chloride 0.9% 100 ml @ 25 mls/hr IVPB Q12HR [facility] Rx #:[id number] Oral 598 Output: Urine 3122 474 1383 Uretheral (Crews) 900 600 Other: Voiding Method Indwelling Catheter Indwelling Catheter Indwelling Catheter - Exam GENERAL DESCRIPTION: An elderly male up in the chair in no distress RESPIRATORY SYSTEM: Unlabored breathing , decreased breath sounds at bases HEART: S1 S2 regular rate and rhythm , ABDOMEN: Soft , no tenderness EXTREMITIES: No edema feet - Labs CBC & Chem 7: 04/27/22 07:58 04/27/22 07:58 Labs: Abnormal Lab Results - Last 24 Hours (Table) 04/28/22 04/29/22 04/29/22 Range/Units 19:50 05:56 11:36 POC Glucose (mg/dL) 202 H 217 H 206 H (70-110) mg/dL 04/29/22 Range/Units 16:29 POC Glucose (mg/dL) 163 H (70-110) mg/dL Microbiology - Last 24 Hours (Table) 04/27/22 12:08 Blood Culture - Preliminary Blood No Growth after 48 hours 04/27/22 12:13 Blood Culture - Preliminary Blood No Growth after 48 hours 04/25/22 18:05 Blood Culture Gram Stain - Final Blood Blood Culture - Final Pasteurella multocida 04/25/22 18:02 Blood Culture Gram Stain - Final Blood Blood Culture - Final Staphylococcus epidermidis Pasteurella multocida Coagulase Negative Staph Assessment and Plan (1) Bacteremia Current Visit: Yes Status: Acute Code(s): R78.81 - BACTEREMIA SNOMED Code(s): 8753388 (2) Pneumonia Current Visit: Yes Status: Acute Code(s): J18.9 - PNEUMONIA, UNSPECIFIED ORGANISM SNOMED Code(s): 743901992 Plan: 1patient with positive blood culture with staph epi likely skin contamination. 2patient with gram-negative bacteremia source could be likely pneumonia in this patient do have underlying lung cancer and did have significant respiratory symptoms patient urine is negative abdominal was soft on examination. 3penicillin allergy that would limit number of antibiotics safe to use. 4patient blood culture with staph epi likely contaminated, Pasteurella is more likely real pathogen and is covered with the cefepime repeat Blood cultures have been negative so far Time with Patient: Less than 30
[2022-04-29 20:00] LABS: Glucose,Whole Blood 188 mg/dL (70-110)
[2022-04-29] MEDS: ATORVASTATIN 40 MG TAB PO SCH (20:20)
--- NOTE | 2022-04-29 23:24 | P.PN ---
Subjective Progress Note Date: 04/27/22 Patient is a 76-year-old male with a long history of out, hypertension, hyperlipidemia, hearing Glusartel/deafness, obstructives, aortic stenosis and previous history of TAVR in 2019, history of permanent pacemaker placement, history of sarcoidosis and CKD stage III and other mild medical problems present s ER with complaints of generalized weakness and unable to stand up get out of bed. Patient is also having chronic pain in his chest and back and also using fentanyl patch and OxyContin at home. He has been having hemoptysis for the past 4 months and also scheduled for bronchoscopy due to recently diagnosed lung mass. Patient had CT chest done on 03/16/2022. Patient is also having loss of weight. No complaints of chest pain or worsening shortness of breath. On admission blood pressures 97/55 and pulse 73 respiration 16 and pulse ox 95% on 4 L oxygen via nasal cannula. Chest x-ray showed no evidence for acute pulmonary disease. EKG showed electronic ventricular paced rhythm. Chest x-ray showed patchy bilateral infiltrate. Marker soft tissue prominence right paratracheal region likely corresponds to the previous CT described mass. Laboratory pressure WBC 23.0 hemoglobin 12.0 and platelets 268 INR 1.1 Sodium 131 potassium 4.1 chloride 92 bicarb 33 BUN 35 and creatinine 1.72 Troponin 0.119 and proBNP 6640 and albumin 2.7 Urinalysis negative for infection Coronavirus PCR not detected. 04/27/2022 Patient is currently in the select care unit. Awake alert and oriented. Still having shortness of breath. Pain is fairly controlled. Oxygen at 3 L via nasal cannula. Patient is having generalized weakness. Blood cultures showed gram- negative bacilli. Patient remains on antibiotics. Patient underwent bronchoscopy with ultrasound and FNA of the superior mediastinal mass. Laboratory data showed WBC 17.0 hemoglobin 11.8 and platelets 247 Sodium 133 potassium 4.5 chloride 94 bicarb is 24 BUN 49 and creatinine 1.47 and procalcitonin level is 4.1. Current medications reviewed. Objective - Vital Signs Vital signs: Vital Signs Temp 98.1 F 04/28/22 20:00 Pulse 70 04/28/22 20:26 Resp 14 04/28/22 20:26 BP 132/60 04/28/22 20:00 Pulse Ox 99 04/28/22 20:00 FiO2 50 04/26/22 16:30 Intake & Output 04/28/22 04/28/22 04/29/22 06:59 18:59 06:59 Intake Total 698 Output Total 550 1200 Balance -550 -502 Intake: Intake, IV Titration 100 Amount Cefepime 2 gm In Sodium 100 Chloride 0.9% 100 ml @ 25 mls/hr IVPB Q12HR [facility] Rx #:[id number] Oral 598 Output: Urine 550 1200 Other: Voiding Method Indwelling Catheter Indwelling Catheter - Exam PHYSICAL EXAMINATION: Patient is lying in the bed comfortably, no acute distress, awake alert and oriented.. HEENT: Normocephalic. Neck is supple. Pupils reactive. Nostrils clear. Oral cavity is moist. Neck reveals no JVD, carotid bruits, or thyromegaly. CHEST EXAMINATION: Trachea is central. Symmetrical expansion. Bilateral coarse breath sounds and crackles.. CARDIAC: Normal S1, S2 with no gallops. No murmurs ABDOMEN: Soft. Bowel sounds present. Nontender. No organomegaly. No abdominal bruits. Extremities: trace edema. No clubbing or cyanosis Neurologically awake, alert, oriented x3 with well-coordinated movements. No focal deficits noted Skin: No rash or skin lesions. Psychiatric: Coperative. Nonsuicidal, anxious. Musculoskeletal: No joint swelling or deformity. Normal range of motion. - Labs CBC & Chem 7: 04/27/22 07:58 04/27/22 07:58 Labs: Abnormal Lab Results - Last 24 Hours (Table) 04/28/22 04/28/22 04/28/22 Range/Units 06:13 11:53 16:49 POC Glucose (mg/dL) 256 H 218 H 253 H (70-110) mg/dL 04/28/22 Range/Units 19:50 POC Glucose (mg/dL) 202 H (70-110) mg/dL Microbiology - Last 24 Hours (Table) 04/27/22 12:08 Blood Culture - Preliminary Blood No Growth after 24 hours 04/27/22 12:13 Blood Culture - Preliminary Blood No Growth after 24 hours 04/25/22 20:31 Gram Stain - Final Sputum Sputum Culture - Final 04/25/22 18:02 Blood Culture Gram Stain - Preliminary Blood Blood Culture - Preliminary Staphylococcus epidermidis Gram Neg Bacilli Coagulase Negative Staph Assessment and Plan Assessment: 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 s/p EBUS and FNA biposy Possible postobstructive pneumonia Recent history of hemoptysis Hypovolemic hyponatremia Acute kidney injury likely prerenal with CKD stage III Troponin leak leukocytosis COPD not in exacerbation Chronic back pain History of aortic stenosis status post TAVR in 2019 History of sarcoidosis DVT prophylaxis with heparin subcu Plan: Patient underwent bronchoscopy today. Follow-up biopsy report. Patient will be oxygen supplementation and antibiotics in the form of ceftriaxone azithromycin. Pulmonary is planning for bronchoscopy today. Continue with DuoNebs. Current pain management and home medications including blood pressure medications. Currently on fentanyl patch and Percocet 10. Follow closely. Prognosis guarded at this time. Time with Patient: Greater than 30
--- NOTE | 2022-04-29 23:29 | P.PN ---
Subjective Progress Note Date: 04/28/22 Patient is a 76-year-old male with a long history of out, hypertension, hyperlipidemia, hearing Glusartel/deafness, obstructives, aortic stenosis and previous history of TAVR in 2019, history of permanent pacemaker placement, history of sarcoidosis and CKD stage III and other mild medical problems present s ER with complaints of generalized weakness and unable to stand up get out of bed. Patient is also having chronic pain in his chest and back and also using fentanyl patch and OxyContin at home. He has been having hemoptysis for the past 4 months and also scheduled for bronchoscopy due to recently diagnosed lung mass. Patient had CT chest done on 03/16/2022. Patient is also having loss of weight. No complaints of chest pain or worsening shortness of breath. On admission blood pressures 97/55 and pulse 73 respiration 16 and pulse ox 95% on 4 L oxygen via nasal cannula. Chest x-ray showed no evidence for acute pulmonary disease. EKG showed electronic ventricular paced rhythm. Chest x-ray showed patchy bilateral infiltrate. Marker soft tissue prominence right paratracheal region likely corresponds to the previous CT described mass. Laboratory pressure WBC 23.0 hemoglobin 12.0 and platelets 268 INR 1.1 Sodium 131 potassium 4.1 chloride 92 bicarb 33 BUN 35 and creatinine 1.72 Troponin 0.119 and proBNP 6640 and albumin 2.7 Urinalysis negative for infection Coronavirus PCR not detected. 04/27/2022 Patient is currently in the select care unit. Awake alert and oriented. Still having shortness of breath. Pain is fairly controlled. Oxygen at 3 L via nasal cannula. Patient is having generalized weakness. Blood cultures showed gram- negative bacilli. Patient remains on antibiotics. Patient underwent bronchoscopy with ultrasound and FNA of the superior mediastinal mass. Laboratory data showed WBC 17.0 hemoglobin 11.8 and platelets 247 Sodium 133 potassium 4.5 chloride 94 bicarb is 24 BUN 49 and creatinine 1.47 and procalcitonin level is 4.1. 04/28/2022 Patient is sitting in the chair. Awake alert and oriented x3. Currently requiring 3 L oxygen via nasal cannula. CT of the cervical and thoracic spine showed large posterior mediastinal mass with involvement of upper th oracovertebral bodies and pathologic compression fracture of T3. There is evidence of tumor extension into the spinal canal 50% narrowing. MRI scan would be helpful for definitive evaluation of the spinal canal. Bone destruction has progressive compared to recent CT scan on 04/13/2022. Patient was seen by orthopedic surgery and recommends further evaluation and intensive care facility. CT head showed normal CT scan of the brain. Patient is being continued on IV steroids, duo nebs and broad-spectrum antibiotics. Patient is on IV cefepime. Patient does not want any surgical intervention at this time and wants to continue with pain management. Current medications reviewed. Objective - Vital Signs Vital signs: Vital Signs Temp 98.1 F 04/28/22 20:00 Pulse 70 04/28/22 20:26 Resp 14 04/28/22 20:26 BP 132/60 04/28/22 20:00 Pulse Ox 99 04/28/22 20:00 FiO2 50 04/26/22 16:30 Intake & Output 04/28/22 04/28/22 04/29/22 06:59 18:59 06:59 Intake Total 698 Output Total 550 1200 Balance -550 -502 Intake: Intake, IV Titration 100 Amount Cefepime 2 gm In Sodium 100 Chloride 0.9% 100 ml @ 25 mls/hr IVPB Q12HR [facility] Rx #:[id number] Oral 598 Output: Urine 550 1200 Other: Voiding Method Indwelling Catheter Indwelling Catheter - Exam PHYSICAL EXAMINATION: Patient is lying in the bed comfortably, no acute distress, awake alert and oriented.. HEENT: Normocephalic. Neck is supple. Pupils reactive. Nostrils clear. Oral cavity is moist. Neck reveals no JVD, carotid bruits, or thyromegaly. CHEST EXAMINATION: Trachea is central. Symmetrical expansion. Bilateral coarse breath sounds and crackles.. CARDIAC: Normal S1, S2 with no gallops. No murmurs ABDOMEN: Soft. Bowel sounds present. Nontender. No organomegaly. No abdominal bruits. Extremities: trace edema. No clubbing or cyanosis Neurologically awake, alert, oriented x3 with well-coordinated movements. No focal deficits noted Skin: No rash or skin lesions. Psychiatric: Coperative. Nonsuicidal, anxious. Musculoskeletal: No joint swelling or deformity. Normal range of motion. - Labs CBC & Chem 7: 04/27/22 07:58 04/27/22 07:58 Labs: Abnormal Lab Results - Last 24 Hours (Table) 04/28/22 04/28/22 04/28/22 Range/Units 06:13 11:53 16:49 POC Glucose (mg/dL) 256 H 218 H 253 H (70-110) mg/dL 04/28/22 Range/Units 19:50 POC Glucose (mg/dL) 202 H (70-110) mg/dL Microbiology - Last 24 Hours (Table) 04/27/22 12:08 Blood Culture - Preliminary Blood No Growth after 24 hours 04/27/22 12:13 Blood Culture - Preliminary Blood No Growth after 24 hours 04/25/22 20:31 Gram Stain - Final Sputum Sputum Culture - Final 04/25/22 18:02 Blood Culture Gram Stain - Preliminary Blood Blood Culture - Preliminary Staphylococcus epidermidis Gram Neg Bacilli Coagulase Negative Staph Assessment and Plan Assessment: 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 s/p EBUS and FNA biposy Pathologic fracture of the T3 spine and evidence of spine compression and disease progression compared to previous CT on 04/13/2020. Possible postobstructive pneumonia Recent history of hemoptysis Hypovolemic hyponatremia Acute kidney injury likely prerenal with CKD stage III Troponin leak leukocytosis COPD not in exacerbation Chronic back pain History of aortic stenosis status post TAVR in 2019 History of sarcoidosis DVT prophylaxis with heparin subcu Plan: Patient underwent bronchoscopy today. Follow-up biopsy report. Patient will be oxygen supplementation and antibiotics in the form of cefepime. Pulmonary is planning for bronchoscopy today. Continue with Jovany. Current pain management and home medications including blood pressure medications. Currently on fentanyl patch and Percocet 10. Patient does have extensive disease with fracture of T3 spine and evidence of spine compression and disease progression. Prognosis is poor at this time. Time with Patient: Greater than 30
--- NOTE | 2022-04-29 23:32 | P.PN ---
Subjective Progress Note Date: 04/29/22 Patient is a 76-year-old male with a long history of out, hypertension, hyperlipidemia, hearing Glusartel/deafness, obstructives, aortic stenosis and previous history of TAVR in 2019, history of permanent pacemaker placement, history of sarcoidosis and CKD stage III and other mild medical problems present s ER with complaints of generalized weakness and unable to stand up get out of bed. Patient is also having chronic pain in his chest and back and also using fentanyl patch and OxyContin at home. He has been having hemoptysis for the past 4 months and also scheduled for bronchoscopy due to recently diagnosed lung mass. Patient had CT chest done on 03/16/2022. Patient is also having loss of weight. No complaints of chest pain or worsening shortness of breath. On admission blood pressures 97/55 and pulse 73 respiration 16 and pulse ox 95% on 4 L oxygen via nasal cannula. Chest x-ray showed no evidence for acute pulmonary disease. EKG showed electronic ventricular paced rhythm. Chest x-ray showed patchy bilateral infiltrate. Marker soft tissue prominence right paratracheal region likely corresponds to the previous CT described mass. Laboratory pressure WBC 23.0 hemoglobin 12.0 and platelets 268 INR 1.1 Sodium 131 potassium 4.1 chloride 92 bicarb 33 BUN 35 and creatinine 1.72 Troponin 0.119 and proBNP 6640 and albumin 2.7 Urinalysis negative for infection Coronavirus PCR not detected. 04/27/2022 Patient is currently in the select care unit. Awake alert and oriented. Still having shortness of breath. Pain is fairly controlled. Oxygen at 3 L via nasal cannula. Patient is having generalized weakness. Blood cultures showed gram- negative bacilli. Patient remains on antibiotics. Patient underwent bronchoscopy with ultrasound and FNA of the superior mediastinal mass. Laboratory data showed WBC 17.0 hemoglobin 11.8 and platelets 247 Sodium 133 potassium 4.5 chloride 94 bicarb is 24 BUN 49 and creatinine 1.47 and procalcitonin level is 4.1. 04/28/2022 Patient is sitting in the chair. Awake alert and oriented x3. Currently requiring 3 L oxygen via nasal cannula. CT of the cervical and thoracic spine showed large posterior mediastinal mass with involvement of upper th oracovertebral bodies and pathologic compression fracture of T3. There is evidence of tumor extension into the spinal canal 50% narrowing. MRI scan would be helpful for definitive evaluation of the spinal canal. Bone destruction has progressive compared to recent CT scan on 04/13/2022. Patient was seen by orthopedic surgery and recommends further evaluation and intensive care facility. CT head showed normal CT scan of the brain. Patient is being continued on IV steroids, duo nebs and broad-spectrum antibiotics. Patient is on IV cefepime. Patient does not want any surgical intervention at this time and wants to continue with pain management. 04/29/2022 Patient is currently sitting in the chair. Awake alert and oriented x3. Breathing status remains the same. Requiring oxygen at 3 L via nasal cannula. No complaints of chest pain. No nausea vomiting or abdominal pain. Tolerating oral diet and pain is fairly controlled. Laboratory tests reviewed. 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 Patient remains on antibiotics in the form of cefepime. Also on antibiotics and methylprednisolone and duo nebs. Endobronchial biopsy report is pending., Orthopedic surgery and pulmonary is on board. Oncology was consulted. Current medications reviewed. Objective - Vital Signs Vital signs: Vital Signs Temp 97.9 F 04/29/22 19:36 Pulse 74 04/29/22 19:36 Resp 18 04/29/22 19:36 BP 157/74 04/29/22 19:36 Pulse Ox 97 04/29/22 19:36 FiO2 28 04/29/22 19:25 Intake & Output 04/29/22 04/29/22 04/30/22 06:59 18:59 06:59 Output Total 900 1780 Balance -900 -1780 Output: Urine 900 1780 Uretheral (Crews) 900 600 Other: Voiding Method Indwelling Catheter Indwelling Catheter - Exam PHYSICAL EXAMINATION: Patient is lying in the bed comfortably, no acute distress, awake alert and oriented.. HEENT: Normocephalic. Neck is supple. Pupils reactive. Nostrils clear. Oral cavity is moist. Neck reveals no JVD, carotid bruits, or thyromegaly. CHEST EXAMINATION: Trachea is central. Symmetrical expansion. Bilateral coarse breath sounds and crackles.. CARDIAC: Normal S1, S2 with no gallops. No murmurs ABDOMEN: Soft. Bowel sounds present. Nontender. No organomegaly. No abdominal bruits. Extremities: trace edema. No clubbing or cyanosis Neurologically awake, alert, oriented x3 with well-coordinated movements. No focal deficits noted Skin: No rash or skin lesions. Psychiatric: Coperative. Nonsuicidal, anxious. Musculoskeletal: No joint swelling or deformity. Normal range of motion. - Labs CBC & Chem 7: 04/27/22 07:58 04/27/22 07:58 Labs: Abnormal Lab Results - Last 24 Hours (Table) 04/29/22 04/29/22 04/29/22 Range/Units 05:56 11:36 16:29 POC Glucose (mg/dL) 217 H 206 H 163 H (70-110) mg/dL 04/29/22 Range/Units 19:59 POC Glucose (mg/dL) 188 H (70-110) mg/dL Microbiology - Last 24 Hours (Table) 04/27/22 12:08 Blood Culture - Preliminary Blood No Growth after 48 hours 04/27/22 12:13 Blood Culture - Preliminary Blood No Growth after 48 hours 04/25/22 18:05 Blood Culture Gram Stain - Final Blood Blood Culture - Final Pasteurella multocida 04/25/22 18:02 Blood Culture Gram Stain - Final Blood Blood Culture - Final Staphylococcus epidermidis Pasteurella multocida Coagulase Negative Staph Assessment and Plan Assessment: 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 s/p EBUS and FNA biposy Pathologic fracture of the T3 spine and evidence of spine compression and disease progression compared to previous CT on 04/13/2020. Possible postobstructive pneumonia Recent history of hemoptysis Hypovolemic hyponatremia Acute kidney injury likely prerenal with CKD stage III Troponin leak leukocytosis COPD not in exacerbation Chronic back pain History of aortic stenosis status post TAVR in 2019 History of sarcoidosis DVT prophylaxis with heparin subcu Plan: Patient underwent bronchoscopy today. Follow-up biopsy report. Patient will be oxygen supplementation and antibiotics in the form of cefepime. Pulmonary is planning for bronchoscopy today. Continue with DuoNebs. Current pain management and home medications including blood pressure medications. Currently on fentanyl patch and Percocet 10. Patient does have extensive disease with fracture of T3 spine and evidence of spine compression and disease progression. Prognosis is poor at this time. Patient wishes to continue with pain management. Does not want any intervention at this time. Discussed with the patient and his at bedside in detail. Time with Patient: Greater than 30
[2022-04-30 06:10] LABS: Glucose,Whole Blood 173 mg/dL (70-110)
[2022-04-30] MEDS: methylPREDNISolone SOD SUCCI 125 MG/2 ML VIAL IV SCH ×3 (06:44→17:13)
[2022-04-30] MEDS: INSULIN ASPART (NovoLOG) 100 UNIT/ML VIAL SQ SCH ×3 (06:44→17:13)
[2022-04-30] MEDS: PANTOPRAZOLE 40 MG TABLET PO SCH (06:45)
[2022-04-30 07:51] LABS: Basophils % (A) 0 %; Eosinophils % (A) 0 %; HCT 40.2 % (39.0-53.0); HGB 12.3 gm/dL (13.0-17.5); Hypochromasia Moderate; Lymphocytes # (A) 0.4 k/uL (1.0-4.8); Lymphocytes % (A) 2 %; MCH 28.2 pg (25.0-35.0); MCHC 30.5 g/dL (31.0-37.0); MCV 92.3 fL (80.0-100.0); Mean Platelet Volume 6.8; Monocytes # (A) 0.4 k/uL (0-1.0); Monocytes % (A) 2 %; Neutrophils # (A) 17.2 k/uL (1.3-7.7); Neutrophils % (A) 95 %; Platelet Count 217 k/uL (150-450); RBC 4.35 m/uL (4.30-5.90); RDW 14.4 % (11.5-15.5)
[2022-04-30 08:05] LABS: Calcium 11.5 mg/dL (8.4-10.2); Potassium 4.5 mmol/L (3.5-5.1)
[2022-04-30] MEDS: IPRATROPIUM-ALBUTEROL 3 ML NEB INHALATION SCH ×3 (08:37→15:42)
[2022-04-30] MEDS: SYMBICORT 160-4.5 MCG INHALER INHALATION SCH (08:37)
[2022-04-30] MEDS: amLODIPine 5 MG TAB PO SCH (09:42)
[2022-04-30] MEDS: LACTULOSE 20 GM/30 ML CUP PO SCH (09:42)
[2022-04-30] MEDS: CEFEPIME 2 GM in SODIUM CHLORIDE 0.9% 100 ML IVPB SCH (09:42)
[2022-04-30] MEDS: METOPROLOL SUCCINATE (ER) 50 MG TAB.ER.24H PO SCH (09:42)
[2022-04-30] MEDS: oxyCODONE-APAP 10-325MG 1 EACH TAB PO PRN (09:45)
--- NOTE | 2022-04-30 10:12 | P.PN ---
Progress Note - Text Progress Note Date: 04/30/22 The patient is seen today at bedside. 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 The patient is planning hospice care at home. He is not planning significant intervention or any surgical intervention for his destructive lesion at T3. We discussed this and he is reasonable and understands the ramifications of his pathology and treatment options. He is planning hospice care at home.
[2022-04-30 11:23] LABS: Glucose,Whole Blood 136 mg/dL (70-110)
--- NOTE | 2022-04-30 13:29 | P.PN ---
Subjective Progress Note Date: 04/30/22 Principal diagnosis: Hemoptysis, mediastinal mass On 04/30/2022 patient seen in follow-up on selective care unit. He is resting in bed, does not appear to be in any acute distress, denies any worsening cough or congestion, seems to breathing comfortably, denies any worsening dyspnea, he is currently on 2 L of oxygen with pulse ox of 99%, he is status post EBUs bronchoscopy, with a fine-needle biopsy of the mediastinal mass, and pathology reports are still pending. Patient had a large posterior superior mediastinal mass with direct anterolateral invasion of the T2 vertebral body that showed high activity on the PET scan and was highly suspicious for tracheal wall invas ion and metastatic malignancy. Patient also had pathologic fracture of T3 spine, he was seen In consultation by orthopedic surgery however he declined any surgical intervention and he wants no escalation of his medical care for possibility of underlying malignancy. He has decided to go home with hospice and at present he seems to be quite anxious to get home today Objective - Vital Signs Vital signs: Vital Signs Temp 97.9 F 04/30/22 08:00 Pulse 74 04/30/22 08:00 Resp 18 04/30/22 08:00 BP 158/71 04/30/22 08:00 Pulse Ox 99 04/30/22 08:00 FiO2 28 04/29/22 19:25 Intake & Output 04/29/22 04/30/22 04/30/22 18:59 06:59 18:59 Output Total 1780 300 Balance -1780 -300 Output: Urine 1780 300 Uretheral (Crews) 600 Other: Voiding Method Indwelling Catheter Indwelling Catheter # Voids 1 - Exam GENERAL EXAM: Alert, very pleasant, 68-year-old white male on 2 L of oxygen and pulse ox of 99% comfortable in no apparent distress. HEAD: Normocephalic/atraumatic. EYES: Normal reaction of pupils, equal size. Conjunctiva pink, sclera white. NOSE: Clear with pink turbinates. THROAT: No erythema or exudates. NECK: No masses, no JVD, no thyroid enlargement, no adenopathy. CHEST: No chest wall deformity. Symmetrical expansion. LUNGS: Equal air entry with no crackles, wheeze, rhonchi or dullness. CVS: Regular rate and rhythm, normal S1 and S2, no gallops, no murmurs, no rubs ABDOMEN: Soft, nontender. No hepatosplenomegaly, normal bowel sounds, no guarding or rigidity. EXTREMITIES: No clubbing, no edema, no cyanosis, 2+ pulses and upper and lower extremities. MUSCULOSKELETAL: Muscle strength and tone normal. SPINE: No scoliosis or deformity SKIN: No rashes CENTRAL NERVOUS SYSTEM: Alert and oriented -3. No focal deficits, tone is normal in all 4 extremities. PSYCHIATRIC: Alert and oriented -3. Appropriate affect. Intact judgment and insight. - Labs CBC & Chem 7: 04/30/22 07:18 04/30/22 07:18 Labs: Abnormal Lab Results - Last 24 Hours (Table) 04/29/22 04/29/22 04/30/22 Range/Units 16:29 19:59 06:07 WBC (3.8-10.6) k/uL Hgb (13.0-17.5) gm/dL MCHC (31.0-37.0) g/dL Neutrophils # (1.3-7.7) k/uL Lymphocytes # (1.0-4.8) k/uL Sodium (137-145) mmol/L Chloride (98-107) mmol/L Carbon Dioxide (22-30) mmol/L BUN (9-20) mg/dL Glucose (74-99) mg/dL POC Glucose (mg/dL) 163 H 188 H 173 H (70-110) mg/dL Calcium (8.4-10.2) mg/dL 04/30/22 04/30/22 04/30/22 Range/Units 07:18 07:18 11:21 WBC 18.0 H (3.8-10.6) k/uL Hgb 12.3 L (13.0-17.5) gm/dL MCHC 30.5 L (31.0-37.0) g/dL Neutrophils # 17.2 H (1.3-7.7) k/uL Lymphocytes # 0.4 L (1.0-4.8) k/uL Sodium 134 L (137-145) mmol/L Chloride 96 L (98-107) mmol/L Carbon Dioxide 36 H (22-30) mmol/L BUN 41 H (9-20) mg/dL Glucose 162 H (74-99) mg/dL POC Glucose (mg/dL) 136 H (70-110) mg/dL Calcium 11.5 H (8.4-10.2) mg/dL Microbiology - Last 24 Hours (Table) 04/27/22 12:08 Blood Culture - Preliminary Blood No Growth after 48 hours 04/27/22 12:13 Blood Culture - Preliminary Blood No Growth after 48 hours 04/25/22 18:05 Blood Culture Gram Stain - Final Blood Blood Culture - Final Pasteurella multocida 04/25/22 18:02 Blood Culture Gram Stain - Final Blood Blood Culture - Final Staphylococcus epidermidis Pasteurella multocida Coagulase Negative Staph Assessment and Plan Plan: Hemoptysis, no evidence of endobronchial lesion or bleeding, bronchoscopy revealed no evidence of any tracheal or endobronchial tumors. The patient however has a large posterior superior mediastinal mass Mediastinal mass. The patient is a 6 x 5 x 5 cm posterior superior mediastinal mass, with direct anterolateral invasion of the T2 vertebral body, highly active on PET scan and highly suspicious for tracheal wall invasion posteriorly. This is most likely an underlying malignancy. Status post EBUS bronchoscopy with FNA of the mediastinal mass. Pathology pending Pathologic fracture of the T3 spine and evidence of spine compression in the order of 50%. Please refer to the CAT scan of the cervical spine. The patient has motor weakness in the upper extremities. The patient has no motor weakness in lower extremities. The patient is experiencing back pain. The patient is currently on IV Solu Medrol. Findings are stable. Awaiting spine surgery and radiation oncology. Bacteremia secondary to gram-negative bacilli, awaiting further cultures. The pro-calcitonin level is also elevated and the patient currently remains on IV cefepime. The cultures groover and turner to be positive for Pasteurella and 90s on the case Back pain secondary to above with some upper extremity weakness COPD History aortic valve stenosis with a previous TAVR and a previous pacemaker insertion. Echocardiogram from February 2022 showed preserved LV, bioprosthetic aortic valve which is in place and no significant leaks Chronic stage III kidney disease, creatinine stable History of sarcoidosis which is currently inactive in stable Troponin leak, nonspecific Acute leukocytosis, improving and the white cell count is down to 18 Plan: Patient's FNA biopsy results of the mediastinal mass are still pending Patient is breathing comfortably and does not appear to be in any acute distress He has declined any surgical intervention for his T3 pathological fracture He is very adamant that he wants to go home today with hospice And he does not want to wait for his path results Consult to hospice has been initiated We'll defer to primary care service post for discharge arrangements I have personally seen and examined the patient, performed the documentation and the assessment and plan as written. Number of minutes spent on the visit: [10] Time with Patient: Less than 30
[2022-04-30 16:38] LABS: Glucose,Whole Blood 148 mg/dL (70-110)
[2022-04-30 16:51] VITALS: BP 171/89; PULSE 78; RESP 19; TEMP 98.7
[2022-04-30] MEDS ORDERED: CEFEPIME 2 GM in SODIUM CHLORIDE 0.9% 100 ML IVPB SCH (18:00)
--- NOTE | 2022-05-02 19:33 | CDI ---
Documentation Clarification Form Date: 05/02/2022 From: ISABEL Toney Admit Date: 04/25/2022 05:50:00 PM Patient Name: Antonio Alex Visit Number: [id number] Discharge Date: 04/30/2022 05:49:00 PM ATTENTION: The Clinical Documentation Specialists (CDI) and [facility] Coding Staff appreciate your assistance in clarifying documentation. Please respond to the clarification below the line at the bottom and electronically sign. The CDI & [facility] Coding staff will review the response and follow-up if needed. Please note: Queries are made part of the Legal Health Record. If you have any questions, please contact the author of this message via ITS. Dr. 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 Coding guidelines do not allow coding professionals to code based on pathology results; therefore, clarification is requested. History/risk factors: Right paratracheal lung mass suspicious for malignancy, recent history of hemoptysis. Mediastinal mass. Clinical Indicators: CXRay IMPRESSION: 1. Patchy bilateral infiltrate.Marked soft tissue prominence right paratracheal region likely corresponds the previous CT described mass. 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
== END 2022-04-30 17:49 | disposition hospice, home (50) | DRG 181 ==
LOC: EC 12:41 → 3SCARD 17:50
PROVIDERS: ADMIT Internal Medicine; ATTEND Internal Medicine
DX: C38.3 Malignant neoplasm of mediastinum, part unspecified (principal); E87.1 Hypo-osmolality and hyponatremia; N17.9 Acute kidney failure, unspecified; J44.0 Chronic obstructive pulmonary disease with (acute) lower respiratory infection; M84.48XA Pathological fracture, other site, initial encounter for fracture; N18.30 Chronic kidney disease, stage 3 unspecified; I12.9 Hypertensive chronic kidney disease with stage 1 through stage 4 chronic kidney disease, or unspecified chronic kidney disease; E78.5 Hyperlipidemia, unspecified; E86.1 Hypovolemia; G89.29 Other chronic pain; H91.90 Unspecified hearing loss, unspecified ear; D86.9 Sarcoidosis, unspecified; Z20.822 Contact with and (suspected) exposure to COVID-19; N40.0 Benign prostatic hyperplasia without lower urinary tract symptoms
CPT/HCPCS: 31629; 31652; 36415; 51702; 70450; 71046; 72125; 72128; 80048; 80053; 81001; 83605; 83735; 83880; 84145; 84484; 85025; 85610; 85730; 87040; 87070; 87205; 87635; 88173; 88305; 88341; 88342; 93005; 94640; 94660; 94760; 96365; 96366; 96368; 96375; 99285

== ENCOUNTER 2022-05-01 07:25 | Emergency (ER) | payer MEDICARE ==
[2022-05-01] MEDS ORDERED: SODIUM CHLORIDE 0.9% 1,000 ML IV STA (07:32)
[2022-05-01] MEDS ORDERED: SODIUM CHLORIDE 0.9% 500 ML 500 ML IV ONE (07:32)
[2022-05-01 07:47] VITALS: RESP 16
--- NOTE | 2022-05-01 08:05 | ED ---
Altered Mental Status HPI - General Chief Complaint: Altered Mental Status Stated Complaint: AMS Time Seen by Provider: 05/01/22 07:25 Source: patient, RN notes reviewed Mode of arrival: EMS Limitations: altered mental status - History of Present Illness Initial Comments: 76-year-old male with a history of lung cancer who is therapy yesterday who was found on floor by his who is brought in for evaluation due to his change in mental status he is normally awake alert oriented 4 today he was confused oriented times one he denies any pain other than his chronic back pain no fevers chills nausea vomiting sweats other symptoms. He apparently foisted he would like to get a gun and shoot himself to paramedics during the transport. No other complaints or modifying factors MD Complaint: altered mental status, decreased responsiveness - Related Data Home Medications Medication Instructions Recorded Confirmed Budesonide-Formot 160-4.5 Mcg 2 puff INHALATION RT-BID 10/08/17 05/01/22 [Symbicort 160-4.5 Mcg Inhaler] amLODIPine BESYLATE 5 mg PO DAILY 12/04/18 05/01/22 Turmeric Root Extract [Turmeric] 500 mg PO DAILY 12/22/19 05/01/22 Apixaban [Eliquis] 5 mg PO BID 02/26/22 05/01/22 Atorvastatin Calcium [Lipitor] 40 mg PO HS 02/26/22 05/01/22 Metoprolol Succinate [Toprol XL] 50 mg PO DAILY 02/26/22 05/01/22 Omeprazole 20 mg PO BID 02/26/22 05/01/22 [place] Concentrate 1 dose PO DAILY PRN 02/26/22 05/01/22 Torsemide [Demadex] 20 mg PO DAILY 02/26/22 05/01/22 Albuterol Inhaler [Ventolin Hfa 1 - 2 puff INHALATION RT-Q6H PRN 04/24/22 05/01/22 Inhaler] Lactulose 10 gm PO DAILY 04/24/22 05/01/22 fentaNYL [Duragesic 37.5 MCG/HR] 1 patch TRANSDERM Q72H 04/24/22 05/01/22 oxyCODONE-APAP 10-325MG [Percocet 1 tab PO Q6HR 04/24/22 05/01/22 10-325 mg] Acetaminophen Tab [Tylenol] 1,000 mg PO Q6H PRN 04/25/22 05/01/22 predniSONE See Taper PO DIRECTED 05/01/22 05/01/22 Previous Rx's Medication Instructions Recorded Losartan Potassium [Cozaar] 50 mg PO DAILY 30 Days #15 tab 02/27/22 Allergies Allergy/AdvReac Type Severity Reaction Status Date / Time amoxicillin trihydrate Allergy Rash/Hives Verified 05/01/22 09:12 [From Augmentin] clindamycin Allergy Rash/Hives Verified 05/01/22 09:12 ibuprofen Allergy Rash/Hives Verified 05/01/22 09:12 potassium clavulanate Allergy Rash/Hives Verified 05/01/22 09:12 [From Augmentin] ragweed pollen AdvReac SINUS Verified 05/01/22 09:12 PROBLEMS Review of Systems ROS Statement: Those systems with pertinent positive or pertinent negative responses have been documented in the HPI. ROS Other: All systems not noted in ROS Statement are negative. Past Medical History Past Medical History: Asthma, Cancer, Chest Pain / Angina, GERD/Reflux, Hearing Disorder / Deafness, Hyperlipidemia, Hypertension, Osteoarthritis (OA), Prostate Disorder, Renal Disease, Respiratory Disorder Additional Past Medical History / Comment(s): SKIN CA LT ARM. HEART MURMUR, hx AORTIC STENOSIS. Varicose Veins. 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 Colonoscopy. NECK GLAND BIOPSY. BRONCH, LUNG biopsy. TVAR aortic valve replacement 2019, skin cancer removed left arm, Past Anesthesia/Blood Transfusion Reactions: No Reported Reaction Type of Cardiac Device: Permanent Pacemaker Device Placement Date:: 2019 [employer] Past Psychological History: No Psychological Hx Reported Smoking Status: Former smoker Past Alcohol Use History: None Reported Past Drug Use History: None Reported - Past Family History Sister(s) Family Medical History: Deep Vein Thrombosis (DVT) Additional Family Medical History / Comment(s): . Mother Family Medical History: Cancer Additional Family Medical History / Comment(s): BRAIN CA, COLON CA General Exam - General Exam Comments Initial Comments: This a well-developed wall versus awake alert but confused to time male Limitations: altered mental status General appearance: alert, in no apparent distress Head exam: Present: atraumatic, normocephalic, normal inspection Eye exam: Present: normal appearance, PERRL, EOMI. Absent: scleral icterus, conjunctival injection, periorbital swelling ENT exam: Present: mucous membranes dry Neck exam: Present: normal inspection, full ROM, other (No stridor JVD or bruits). Absent: tenderness, meningismus, lymphadenopathy Respiratory exam: Present: decreased breath sounds. Absent: respiratory distress, wheezes, rales, rhonchi, stridor Cardiovascular Exam: Present: regular rate, normal rhythm, normal heart sounds. Absent: systolic murmur, diastolic murmur, rubs, gallop, clicks GI/Abdominal exam: Present: soft, normal bowel sounds. Absent: distended, tenderness, guarding, rebound, rigid Extremities exam: Present: normal inspection, full ROM, normal capillary refill, other (Extremities are slightly cool to touch). Absent: tenderness, pedal edema, joint swelling, calf tenderness Back exam: Present: normal inspection Neurological exam: Present: alert, oriented X3, CN II-XII intact Psychiatric exam: Present: normal affect, normal mood Skin exam: Present: warm, dry, intact, normal color. Absent: rash Course Vital Signs 05/01/22 05/01/22 07:31 08:08 Temperature 998.0 F H 98.4 F Pulse Rate 71 80 Respiratory 16 16 Rate Blood Pressure 163/82 150/74 O2 Sat by Pulse 84 L 94 L Oximetry Medical Decision Making - Medical Decision Making Patient continued to have his mental status changes. I did discuss the findings with the patient and family members or present. Patient does have elevated white blood cell count elevated troponin and BNP was pending at this time. After long discussion with the hospice nurse. Patient will be discharged home at the family request for home hospice. Thus the findings today and seen on the workup. The rate being on agreement with this. - Lab Data Result diagrams: 05/01/22 07:52 05/01/22 07:52 Lab Results 05/01/22 05/01/22 05/01/22 Range/Units 07:52 07:52 07:52 WBC 25.5 H (3.8-10.6) k/uL RBC 4.80 (4.30-5.90) m/uL Hgb 13.9 (13.0-17.5) gm/dL Hct 43.6 (39.0-53.0) % MCV 90.8 (80.0-100.0) fL MCH 28.9 (25.0-35.0) pg MCHC 31.9 (31.0-37.0) g/dL RDW 14.2 (11.5-15.5) % Plt Count 219 (150-450) k/uL MPV 7.0 Neutrophils % 94 % Lymphocytes % 2 % Monocytes % 4 % Eosinophils % 0 % Basophils % 0 % Neutrophils # 23.9 H (1.3-7.7) k/uL Lymphocytes # 0.6 L (1.0-4.8) k/uL Monocytes # 0.9 (0-1.0) k/uL Eosinophils # 0.1 (0-0.7) k/uL Basophils # 0.0 (0-0.2) k/uL Hypochromasia Slight PT 11.5 (9.0-12.0) sec INR 1.1 (<1.2) APTT 21.8 L (22.0-30.0) sec Sodium (137-145) mmol/L Potassium (3.5-5.1) mmol/L Chloride (98-107) mmol/L Carbon Dioxide (22-30) mmol/L Anion Gap mmol/L BUN (9-20) mg/dL Creatinine (0.66-1.25) mg/dL Est GFR (CKD-EPI)AfAm (>60 ml/min/1.73 sqM) Est GFR (CKD-EPI)NonAf (>60 ml/min/1.73 sqM) Glucose (74-99) mg/dL Plasma Lactic Acid Juan Carlos (0.7-2.0) mmol/L Calcium (8.4-10.2) mg/dL Magnesium (1.6-2.3) mg/dL Total Bilirubin (0.2-1.3) mg/dL AST (17-59) U/L ALT (4-49) U/L Alkaline Phosphatase (38-126) U/L Ammonia (<30) umol/L Creatine Kinase (55-170) U/L Troponin I (0.000-0.034) ng/mL Total Protein (6.3-8.2) g/dL Albumin (3.5-5.0) g/dL Urine Color Yellow Urine Appearance Clear (Clear) Urine pH 5.5 (5.0-8.0) Ur Specific [place] 1.012 (1.001-1.035) Urine Protein 1+ H (Negative) Urine Glucose (UA) Negative (Negative) Urine Ketones Negative (Negative) Urine Blood Small H (Negative) Urine Nitrite Negative (Negative) Urine Bilirubin Negative (Negative) Urine Urobilinogen <2.0 (<2.0) mg/dL Ur Leukocyte Esterase Negative (Negative) Urine RBC 7 H (0-5) /hpf Urine WBC 5 (0-5) /hpf Ur Squamous Epith Cells <1 (0-4) /hpf Hyaline Casts 1 (0-2) /lpf Urine Mucus Rare H (None) /hpf Urine Opiates Screen Detected H (NotDetected) Ur Oxycodone Screen Detected H (NotDetected) Urine Methadone Screen Not Detected (NotDetected) Ur Propoxyphene Screen Not Detected (NotDetected) Ur Barbiturates Screen Not Detected (NotDetected) U Tricyclic Antidepress Not Detected (NotDetected) Ur Phencyclidine Scrn Not Detected (NotDetected) Ur Amphetamines Screen Not Detected (NotDetected) U Methamphetamines Scrn Not Detected (NotDetected) U Benzodiazepines Scrn Not Detected (NotDetected) Urine Cocaine Screen Not Detected (NotDetected) U Marijuana (THC) Screen Not Detected (NotDetected) Serum Alcohol mg/dL 05/01/22 05/01/22 05/01/22 Range/Units 07:52 07:52 07:52 WBC (3.8-10.6) k/uL RBC (4.30-5.90) m/uL Hgb (13.0-17.5) gm/dL Hct (39.0-53.0) % MCV (80.0-100.0) fL MCH (25.0-35.0) pg MCHC (31.0-37.0) g/dL RDW (11.5-15.5) % Plt Count (150-450) k/uL MPV Neutrophils % % Lymphocytes % % Monocytes % % Eosinophils % % Basophils % % Neutrophils # (1.3-7.7) k/uL Lymphocytes # (1.0-4.8) k/uL Monocytes # (0-1.0) k/uL Eosinophils # (0-0.7) k/uL Basophils # (0-0.2) k/uL Hypochromasia PT (9.0-12.0) sec INR (<1.2) APTT (22.0-30.0) sec Sodium 135 L (137-145) mmol/L Potassium 4.5 (3.5-5.1) mmol/L Chloride 95 L (98-107) mmol/L Carbon Dioxide 40 H (22-30) mmol/L Anion Gap 0 mmol/L BUN 42 H (9-20) mg/dL Creatinine 0.98 (0.66-1.25) mg/dL Est GFR (CKD-EPI)AfAm 86 (>60 ml/min/1.73 sqM) Est GFR (CKD-EPI)NonAf 74 (>60 ml/min/1.73 sqM) Glucose 133 H (74-99) mg/dL Plasma Lactic Acid [place] 1.1 (0.7-2.0) mmol/L Calcium 12.6 H (8.4-10.2) mg/dL Magnesium 2.3 (1.6-2.3) mg/dL Total Bilirubin 0.9 (0.2-1.3) mg/dL AST 19 (17-59) U/L ALT 15 (4-49) U/L Alkaline Phosphatase 113 (38-126) U/L Ammonia <9 (<30) umol/L Creatine Kinase 41 L (55-170) U/L Troponin I 0.115 H* (0.000-0.034) ng/mL Total Protein 5.5 L (6.3-8.2) g/dL Albumin 3.0 L (3.5-5.0) g/dL Urine Color Urine Appearance (Clear) Urine pH (5.0-8.0) Ur Specific [place] (1.001-1.035) Urine Protein (Negative) Urine Glucose (UA) (Negative) Urine Ketones (Negative) Urine Blood (Negative) Urine Nitrite (Negative) Urine Bilirubin (Negative) Urine Urobilinogen (<2.0) mg/dL Ur Leukocyte Esterase (Negative) Urine RBC (0-5) /hpf Urine WBC (0-5) /hpf Ur Squamous Epith Cells (0-4) /hpf Hyaline Casts (0-2) /lpf Urine Mucus (None) /hpf Urine Opiates Screen (NotDetected) Ur Oxycodone Screen (NotDetected) Urine Methadone Screen (NotDetected) Ur Propoxyphene Screen (NotDetected) Ur Barbiturates Screen (NotDetected) U Tricyclic Antidepress (NotDetected) Ur Phencyclidine Scrn (NotDetected) Ur Amphetamines Screen (NotDetected) U Methamphetamines Scrn (NotDetected) U Benzodiazepines Scrn (NotDetected) Urine Cocaine Screen (NotDetected) U Marijuana (THC) Screen (NotDetected) Serum Alcohol <10 mg/dL - Radiology Data Radiology results: report reviewed, image reviewed (Image reviewed as well as report CT shows no definitive acute changes x-ray shows evidence of pulmonary [place] congestion patient does have a central lung mass as noted from history. No definitive pneumonia) Disposition Clinical Impression: Delirium due to general medical condition, Altered mental status, Lung cancer, Elevated troponin, Leukocytosis, Hospice care patient, Dehydration Disposition: HOME SELF-CARE Condition: Fair Is patient prescribed a controlled substance at d/c from ED?: No Referrals: Vladislav Manzano DO [Primary Care Provider] - 1-2 days Decision Date: 05/01/22 Decision Time: 11:10
[2022-05-01 08:13] VITALS: BP 150/74; PULSE 80; TEMP 98.4
[2022-05-01 08:24] LABS: Basophils % (A) 0 %; Eosinophils # (A) 0.1 k/uL (0-0.7); Eosinophils % (A) 0 %; HCT 43.6 % (39.0-53.0); HGB 13.9 gm/dL (13.0-17.5); Hypochromasia Slight; Lymphocytes # (A) 0.6 k/uL (1.0-4.8); Lymphocytes % (A) 2 %; MCH 28.9 pg (25.0-35.0); MCHC 31.9 g/dL (31.0-37.0); MCV 90.8 fL (80.0-100.0); Monocytes # (A) 0.9 k/uL (0-1.0); Monocytes % (A) 4 %; Neutrophils # (A) 23.9 k/uL (1.3-7.7); Neutrophils % (A) 94 %; Platelet Count 219 k/uL (150-450); RDW 14.2 % (11.5-15.5); WBC 25.5 k/uL (3.8-10.6)
[2022-05-01 08:35] LABS: ALT 15 U/L (4-49); AST 19 U/L (17-59); African American GFR (CKD) 86 (>60 ml/min/1.73 sqM); Alcohol <10 mg/dL; Alkaline Phosphatase 113 U/L (38-126); Anion Gap 0 mmol/L; Blood Urea Nitrogen 42 mg/dL (9-20); Calcium 12.6 mg/dL (8.4-10.2); Carbon Dioxide 40 mmol/L (22-30); Chloride 95 mmol/L (98-107); Creatine Kinase 41 U/L (55-170); Glucose 133 mg/dL (74-99); Magnesium 2.3 mg/dL (1.6-2.3); Non-African American GFR(CKD) 74 (>60 ml/min/1.73 sqM); Potassium 4.5 mmol/L (3.5-5.1); Sodium 135 mmol/L (137-145); Total Bilirubin 0.9 mg/dL (0.2-1.3); Total Protein 5.5 g/dL (6.3-8.2)
[2022-05-01 08:36] LABS: INR 1.1 (<1.2); Prothrombin Time 11.5 sec (9.0-12.0)
[2022-05-01 08:41] LABS: Partial Thromboplastin Time 21.8 sec (22.0-30.0)
[2022-05-01 08:57] LABS: Lactic Acid, Venous 1.1 mmol/L (0.7-2.0)
[2022-05-01 08:59] LABS: Appearance,Urine Clear (Clear); Bilirubin,Urine Negative (Negative); Blood,Urine Small (Negative); Cocaine Screen,Urine Not Detected (NotDetected); Color,Urine Yellow; Glucose,Urine (UA) Negative (Negative); Hyaline Casts,Urine 1 /lpf (0-2); Ketones,Urine Negative (Negative); Leukocyte Esterase,Urine Negative (Negative); Mucus,Urine Rare /hpf; Nitrite,Urine Negative (Negative); PH, Urine 5.5 (5.0-8.0); Phencyclidine Screen,Urine Not Detected (NotDetected); Protein,Urine 1+ (Negative); RBC,Urine 7 /hpf (0-5); Specific Gravity,Urine 1.012 (1.001-1.035); Squamous Epithelial Cell,Urine <1 /hpf (0-4); Urn Cannabinoid Scrn Not Detected (NotDetected); Urobilinogen,Urine <2.0 mg/dL (<2.0); WBC,Urine 5 /hpf (0-5)
[2022-05-01 09:00] LABS: Amphetamine Screen,Urine Not Detected (NotDetected); Barbiturate Screen,Urine Not Detected (NotDetected); Benzodiazepines Screen,Urine Not Detected (NotDetected); Methadone Screen, Urine Not Detected (NotDetected); Opiate Screen,Urine Detected (NotDetected); Oxycodone Screen, Urine Detected (NotDetected); Tricyclic Antidepressant,Urine Not Detected (NotDetected)
--- NOTE | 2022-05-01 09:38 | XR ---
EXAMINATION TYPE: XR chest 2V DATE OF EXAM: 05/01/2022 COMPARISON: Chest x-ray 04/26/2022, PET/CT dated 04/13/2022 HISTORY: Altered mental status TECHNIQUE: Frontal and lateral views of the chest are obtained on 3 images. FINDINGS: Patient is post cardiac valve replacement. There is a generator in the left pectoral regio n, leads are noted in the right atrium and ventricle. Heart is enlarged. There is prominence intersti tium, perihilar vascular indistinctness and prominence the central vascularity. No evident pneumothor ax. There is blunting the posterior costophrenic angles. IMPRESSION: Correlate for congestive heart failure, this cardiomegaly and small basilar effusions cuello spected, interstitial lung disease. Postprocedural changes. Difficult to exclude pneumonia, patient w ith known mediastinal mass.
--- NOTE | 2022-05-01 09:39 | CT ---
EXAMINATION TYPE: CT brain wo con CT DLP: 1163.9 mGycm, Automated exposure control for dose reduction was used. DATE OF EXAM: 05/01/2022 9:24 AM COMPARISON: CT brain 04/28/2022 CLINICAL INDICATION:Male, 76 years old with history of Mental status TECHNIQUE: Brain: Multiple axial CT images of the brain were obtained without IV contrast. Coronal and sagittal reformats reviewed. FINDINGS: Brain: Extra-axial spaces: No abnormal extra-axial fluid collections. Ventricular system: Within normal limits Cerebral parenchyma: No acute intraparenchymal hemorrhage or mass effect. The escobar-white junction is well differentiated. Scattered hypoattenuating areas are seen within the white matter. Mild cerebra l atrophy. Cerebellum: Unremarkable. Mass effect: No evidence of midline shift. Intracranial vasculature: Atherosclerotic calcifications of the intracranial vessels. Soft tissues: Normal. Calvarium/osseous structures: No depressed skull fracture. Paranasal sinuses and mastoid air cells: Clear Visualized orbits: Orbital contents are intact. IMPRESSION: * No acute intracranial process. No significant change from prior examination. * Nonspecific scattered hypoattenuating regions within the periventricular white matter likely relat ed to chronic small vessel ischemic disease.
[2022-05-01] MEDS ORDERED: FUROSEMIDE 10 MG/ML 4 ML VIAL IV STA (10:25)
== END 2022-05-01 12:05 | disposition home or self-care (01) ==
LOC: EC 07:25
DX: F05 Delirium due to known physiological condition (principal); R41.82 Altered mental status, unspecified; R77.8 Other specified abnormalities of plasma proteins; D72.829 Elevated white blood cell count, unspecified; E86.0 Dehydration; Z51.5 Encounter for palliative care; D02.20 Carcinoma in situ of unspecified bronchus and lung; J45.909 Unspecified asthma, uncomplicated; K21.9 Gastro-esophageal reflux disease without esophagitis; E78.5 Hyperlipidemia, unspecified; I10 Essential (primary) hypertension; M19.90 Unspecified osteoarthritis, unspecified site; N18.9 Chronic kidney disease, unspecified; Z87.891 Personal history of nicotine dependence; Z88.0 Allergy status to penicillin; Z88.1 Allergy status to other antibiotic agents; Z88.6 Allergy status to analgesic agent; Z91.048 Other nonmedicinal substance allergy status; Z79.51 Long term (current) use of inhaled steroids; Z79.899 Other long term (current) drug therapy
CPT/HCPCS: 36415; 93005; 83880; 80053; 82140; 82550; 83605; 83735; 84484; 85025; 85610; 85730; 81001; 87040; 80306; 71046; 70450; 99285; 96374; 96361 ×4; G0480; J1940; 80320